=== PATIENT | male | born 2000 | race Caucasian/White ===

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

== ENCOUNTER 2018-01-18 09:02 | Emergency (ER) | payer MEDICAID, SELFPAY ==
[2018-01-18 09:04] VITALS: BP 133/56; PULSE 98; RESP 18; TEMP 36.3; O2SAT 95; BMI 34.8
[2018-01-18] MEDS: Ketorolac 30 MG/ML Syringe IV (09:32)
[2018-01-18] MEDS: 0.9% Normal Saline 1,000 ML 1000 ML IV ×2 (09:32)
[2018-01-18] MEDS: Ondansetron 4 MG/2 ML Vial IV (09:32)
--- NOTE | 2018-01-18 10:41 | ED.DCSUM_ITS ---
- ER Visit Summary Date of Service: 01/18/18 Chief Complaint: Vomiting and diarrhea History of Present Illness: The patient is a [address] pantoja. He reports he has vomiting and diarrhea that began today. He has vomited multiple times. No blood in his emesis. Multiple episodes of diarrhea. No blood in stools or black tarry stools. He reports that he has diffuse aching, cramping abdominal pain Zeta 10 at worst and currently. Is worsened by nothing. Is relieved by a hot shower. She does report he has had sick contacts. States he had a similar episode approximately 2 months ago. Physical Examination: Vitals: Stable. Afebrile. General: Well-nourished and well-developed. Head: Normocephalic atraumatic. Neck: Supple, no lymphadenopathy. No JVD. Nontender. Cardiovascular: Regular rate and rhythm. No murmurs. Respiratory: No respiratory distress. Clear to auscultation bilaterally. Abdominal: Soft, mild epigastric tenderness to palpation, nondistended, normal bowel sounds. No guarding, rebound, or peritoneal signs. Back: Nontender. Extremities: Nontender, no edema. Skin: Normal color, no rash. Neurologic: Alert and oriented ?3. Cranial nerves II through XII are intact. Normal strength and sensation. Psych: Normal affect. Emergency Department Course and Treatment: Patient had an IV placed. He is given 2 L normal saline, Zofran, and Toradol IV. He is resting comfortably. He said no vomiting or diarrhea while here Treatment Plan: Patient will be discharged with Zofran. Instructed to follow-up Dr. pantoja in 1-2 days if not improving. Return to the emergency department for any worsening symptoms. Disposition: To home in improved and stable condition. Impression: 1. Vomiting/diarrhea. This note was generated with [employer] dictation software. It may contain incorrect words, spelling, and punctuation that were not noted in review of the chart prior to signing ED Disposition - Plan for ED Patient: Disposition: Home or Assisted Living Chief Complaint: Nausea/Vomiting/Diarrhea Instructions: ED Vomiting Diarrhea Nonspecific Ad Prescriptions: Ondansetron [Zofran Odt] 4 mg PO Q8H PRN PRN #10 tablet PRN Reason: Nausea Referrals: Jase Pantoja MD [Primary Care Provider] - 1-2 Days if not improving
[2018-01-18 10:51] VITALS: PULSE 78; RESP 16; O2SAT 98
== END 2018-01-18 10:52 | disposition home or self-care (01) ==
PROVIDERS: Emergency Provider Emergency Medicine; Family Provider Pediatrics; PCP Pediatrics
DX: R11.2 Nausea with vomiting, unspecified (principal); R19.7 Diarrhea, unspecified; R10.9 Unspecified abdominal pain; J45.909 Unspecified asthma, uncomplicated
CPT/HCPCS: 96361; 96374; 96375; 99283; J7030; A4216; J2405

== ENCOUNTER 2018-01-18 14:11 | Emergency (ER) | payer MEDICAID, SELFPAY ==
[2018-01-18 09:04] VITALS: BMI 34.8
[2018-01-18 14:11] VITALS: BP 125/58; PULSE 98; RESP 18; TEMP 37; O2SAT 98; BMI 34.8
[2018-01-18] MEDS: 0.9% Normal Saline 1,000 ML 1000 ML IV (14:43)
[2018-01-18] MEDS: proMETHazine 25 MG/ML Syringe 6.25 MG IV (14:44)
--- NOTE | 2018-01-18 15:39 | ED.DCSUM_ITS ---
- ER Visit Summary Date of Service: 01/18/18 Chief Complaint: Vomiting and diarrhea History of Present Illness: The patient is a [address] pantoja. Patient reports he has vomiting and diarrhea that began 8 hours ago. States he is vomited multiple times. No blood in his emesis. Has had multiple episodes of diarrhea. Complains of aching, cramping diffuse abdominal pain is 10 at 10 worsening a 10 currently. Worse by nothing relieved by nothing. Patient was seen in the emergency department for this earlier and was given Zofran here. He reports that he got the prescription for Zofran filled and took this, but continued to vomit despite this. Physical Examination: Vitals: Stable. Afebrile. General: Well-nourished and well-developed. Head: Normocephalic atraumatic. Neck: Supple, no lymphadenopathy. No JVD. Nontender. Cardiovascular: Regular rate and rhythm. No murmurs. Respiratory: No respiratory distress. Clear to auscultation bilaterally. Abdominal: Soft, mild diffuse tenderness palpation, nondistended, normal bowel sounds. No guarding, rebound, or peritoneal signs. Back: Nontender. Extremities: Nontender, no edema. Skin: Normal color, no rash. Neurologic: Alert and oriented ?3. Cranial nerves II through XII are intact. Normal strength and sensation. Psych: Normal affect. Emergency Department Course and Treatment: Patient had an IV placed. He was given a liter normal saline. He is given Phenergan IV. He has had no vomiting or diarrhea while here. Treatment Plan: I had a prolonged discussion with the patient. I do not feel that blood work is indicated. He has been ill for 8 hours. He will be discharged with Phenergan suppositories to use in addition to Zofran ODT. Follow-up with Dr. pantoja in 1-2 days if not improving. Disposition: To home in improved and stable condition. Impression: 1. Vomiting/diarrhea. This note was generated with [employer] dictation software. It may contain incorrect words, spelling, and punctuation that were not noted in review of the chart prior to signing ED Disposition - Plan for ED Patient: Chief Complaint: Nausea/Vomiting/Diarrhea Instructions: ED Gastroenteritis Viral Prescriptions: proMETHazine suppository [Phenergan Suppository] 25 mg RECTAL Q6H PRN PRN #6 suppos. PRN Reason: Nausea Referrals: Jase Pantoja MD [Primary Care Provider] - 1-2 Days if not improving
[2018-01-18 15:48] VITALS: BP 127/64; PULSE 99; RESP 18; O2SAT 98
== END 2018-01-18 15:50 | disposition home or self-care (01) ==
PROVIDERS: Emergency Provider Emergency Medicine; Family Provider Pediatrics; PCP Pediatrics
DX: R11.2 Nausea with vomiting, unspecified (principal); R19.7 Diarrhea, unspecified; R10.84 Generalized abdominal pain; J45.909 Unspecified asthma, uncomplicated
CPT/HCPCS: 96361; 96374; 96375; 99283; J7030; A4216; J2405

== ENCOUNTER → 2018-07-02 15:59 | Outpatient (CLI) | payer MEDICAID, SELFPAY | PROVIDERS: Referring Provider Nurse Practitioner Women's Health; Visit Provider Nurse Practitioner Women's Health | DX: Z31.440 Encounter of male for testing for genetic disease carrier status for procreative management (principal) | CPT/HCPCS: 36415 ==

== ENCOUNTER → 2018-09-02 12:03 | Outpatient (CLI) | payer MEDICAID, SELFPAY ==
--- NOTE | 2018-09-02 12:12 | RAD_ITS ---
STUDY: X-RAY - LEFT KNEE REASON FOR EXAM: Male, 18 years old. Pain x3 years TECHNIQUE: 4 view(s) of the knee. COMPARISON: None. FINDINGS: Normal visualized distal femur. Normal visualized proximal tibia and fibula. Normal proximal tibiofibular articulation. Normal medial femorotibial compartment. Normal lateral femorotibial compartment. Normal patellofemoral articulation. The soft tissue structures are unremarkable. RAD/Knee 4 or More Views IMPRESSION: Normal x-ray examination of the knee. Electronically Signed: Moses Zimmerman MD at 12:56 EDT , Service support ,
--- NOTE | 2018-09-02 12:12 | RAD_ITS ---
STUDY: X-RAY - RIGHT KNEE REASON FOR EXAM: Male, 18 years old. Pain x3 years TECHNIQUE: 4 view(s) of the knee. COMPARISON: None. FINDINGS: Normal visualized distal femur. Normal visualized proximal tibia and fibula. Normal proximal tibiofibular articulation. Normal medial femorotibial compartment. Normal lateral femorotibial compartment. Normal patellofemoral articulation. The soft tissue structures are unremarkable. RAD/Knee 4 or More Views IMPRESSION: Normal x-ray examination of the knee. Electronically Signed: Moses Zimmerman MD at 12:56 EDT , Service support ,
[2018-09-02 14:09] LABS: Absolute Lymphocyte Count 1.94 X10^3/uL (0.83-4.51); Absolute Neutrophil Count 4.1 X10^3/uL (2.0-7.7); Basophil# 0.03 X10^3/uL; Basophil% 0.4 % (0-1); Eosinophil# 0.12 X10^3/uL; Eosinophils% 1.8 % (0-5); Hematocrit 44.2 % (40-54); Hemoglobin 15.1 g/dL (13.0-16.5); Lymphocyte # 1.94 X10^3/ul (4.0); Lymphocyte % 28.5 % (19-41); Mean Corp Hgb Conc 34.2 g/dL (32-36); Mean Corpuscular Hgb 28.3 pg (27.0-32.0); Mean Corpuscular Volume 82.8 fL (80-94); Mean Platelet Vol. 11.7 fl (6.2-12.0); Monocyte# 0.59 X10^3/uL; Monocyte% 8.7 % (0-10); NRBC Flagged by Analyzer 0 % (0-5); Neutrophil # 4.12 X10^3/uL (2.7-7.7); Neutrophil % 60.5 % (47-70); Platelet Count 251 K/mm3 (150-450); RBC Distribution Width CV 12.4 % (11.6-14.6); RBC Distribution Width SD 37.3 fl (35.1-43.9); Red Blood Count 5.34 M/mm3 (4.6-6.2); White Blood Count 6.8 K/mm3 (4.4-11.0)
[2018-09-02 14:22] LABS: Anion Gap 7 (5-15); BUN 13 mg/dL (7-18); BUN/Creat Ratio 13.3 RATIO (10-20); CRP < 2.90 mg/L (0.0-3.0); Calcium,Total 8.8 mg/dL (8.5-10.1); Chloride 107 mmol/L (98-107); Creatinine, Serum 0.98 mg/dL (0.70-1.30); EST Glomerular Filtration Rate 104 mL/min (>60); Est Glom Filt Rate - Afr Amer 125 mL/min (>60); Glucose 95 mg/dL (74-106); Potassium 3.8 mmol/L (3.5-5.1); Rheumatoid Factor < 10.0 IU/mL (<15); Sodium Level 142 mmol/L (136-145)
[2018-09-02 14:34] LABS: Erythrocyte Sedimentation Rate 3 mm/hr (0-15)
[2018-09-04 09:42] LABS: ANTINUCLEAR ANTIBODIES DIRECT Negative (Negative)
== END ==
PROVIDERS: Family Provider Family Medicine; PCP Family Medicine; Referring Provider Family Medicine; Visit Provider Family Medicine
DX: M25.561 Pain in right knee (principal); M25.562 Pain in left knee
CPT/HCPCS: 36415; 73564; 80048; 85025; 85652; 86038; 86140; 86431

== ENCOUNTER 2018-09-24 03:24 | Emergency (ER) | payer MEDICAID, SELFPAY ==
[2018-09-24 03:25] VITALS: BP 140/92; PULSE 81; RESP 16; TEMP 36.8; O2SAT 98; BMI 35.6
--- NOTE | 2018-09-24 03:30 | ED.VISSUMM ---
- ER Visit Summary Date of Service: 09/24/18 Chief Complaint: Bilateral ear pain, headache History of Present Illness: The patient is a 18 M who presents with the above symptoms. 3 days ago he was diagnosed with bilateral external otitis and has been doing antibiotic eardrops. He states his pain is getting worse. He has a headache tonight. He took Tylenol and naproxen without any relief. His temperature was 101 ?F yesterday. Physical Examination: Vital signs reviewed. HEENT exam reveals an atraumatic, normocephalic head. His pupils are equal. Bilateral ears reveals swelling of the external auditory canals. His TMs are clear. Heart is regular rate and rhythm. Lungs clear. Abdomen soft. Neurologic exam normal. Test Results: None performed Emergency Department Course and Treatment: Patient will be given a dose of Toradol intramuscularly for pain. I will add some oral antibiotics to see if this will help with his symptoms. He will follow-up with his PCP. Continue NSAIDs at home for pain Treatment Plan: [] Disposition: Discharge Impression: Bilateral external otitis, headache This note was generated with [employer] dictation software. It may contain incorrect words, spelling, and punctuation that were not noted in review of the chart prior to signing ED Disposition - Plan for ED Patient: Referrals: Domo Cheng MD [Primary Care Provider] -
--- NOTE | 2018-09-24 03:31 | ED.DEP ---
ED Disposition - Plan for ED Patient: Disposition: Home or Assisted Living Instructions: EXTERNAL EAR INFECTION (Adult) Prescriptions: Amoxicillin 500 mg PO TID #20 tab Prescription Printed Referrals: Domo Cheng MD [Primary Care Provider] -
[2018-09-24] MEDS: AMOXICILLIN 500 MG CAPSULE PO (03:39)
[2018-09-24] MEDS: Naproxen 500 MG Tablet PO (03:43)
[2018-09-24 03:44] VITALS: RESP 16
== END 2018-09-24 03:45 | disposition home or self-care (01) ==
LOC: ED 03:43
PROVIDERS: Emergency Provider Emergency Medicine; Family Provider Family Medicine; PCP Family Medicine
DX: H60.93 Unspecified otitis externa, bilateral (principal); R51 Headache; J45.909 Unspecified asthma, uncomplicated; Z72.0 Tobacco use
CPT/HCPCS: 99283

== ENCOUNTER 2018-10-16 16:00 | Outpatient (RCR) | payer MEDICAID, SELFPAY ==
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
--- NOTE | 2018-11-21 09:51 | HP.PT.NRP ---
HP - Discharge Summary (1) - Patient Information MOIRA HUMMEL was seen in my office for initial evaluation on 09/22/18. The following Plan of Care was established for this patient: Initial Frequency: 2x /Week Initial Duration: 4 Weeks - Anticipated Interventions Patient/Client Instruction: Educate patient on: Benefits of Fitness Program Therapeutic Exercise to Include: Strength training, Power training, Balance training, Agility training, Body mechanics, Postural training, Flexibilty training, Gait and locomotor training, Dynamic Lumbar Stabilization For the Purpose of:: To improve muscle performance and motor function Functional Training to Include: Gait training TENS: Yes Cryotherapy (ice pack, ice massage): Yes Thermo therapy (hot pack): Yes Ultrasound (thermal/non thermal): Yes For the Purpose of:: To decrease pain This patient was last seen in our office . Pertinent comments regarding their Physical therapy will appear below: Patient has not attended PT in 4 weeks and is appropriate for d/c- return to MD for further evaluation as needed. At this point I will be discontinuing this patient from physical therapy. I would be happy to see this patient again in the future if found appropriate by the physician. Thank you! JUVENAL AbbottT
== END 2018-10-16 19:00 | disposition home or self-care (01) ==
LOC: PT 16:00
PROVIDERS: Family Provider Family Medicine; PCP Family Medicine; Referring Provider Family Medicine; Visit Provider Family Medicine
DX: M25.561 Pain in right knee (principal); M25.562 Pain in left knee
CPT/HCPCS: 97110; 97161

== ENCOUNTER 2019-07-13 23:45 | Emergency (ER) | payer OTHER, MEDICAID, SELFPAY ==
[2019-07-13 23:46] VITALS: BP 142/81; PULSE 89; RESP 16; TEMP 37.2; O2SAT 97; BMI 36.6
--- NOTE | 2019-07-14 00:14 | ED.DCSUM_ITS ---
History of Present Illness Chief Complaint: Back Informant: Patient Onset: Days Timing: Intermittent Current Severity: Moderate Maximum Severity: Severe Narrative: Patient presents secondary to back pain. He states a few days ago he was leaning over putting his daughter into her car seat when he felt something pop in his lower back. Was slightly sore but seem to be okay. He then reached for something at lunch and felt another pop. He now has pain radiating down his right leg. He denies any fall or direct trauma. He does not have paresthesias. He had no problems with bowel or bladder control. - Past Medical History (1) Asthma Status: Chronic Past Medical History - Allergies and Home Meds Allergies/Adverse Reactions: Allergies No Known Allergies Allergy (Verified 07/13/19 23:48) Primary Care Physician: Domo Cheng MD [Primary Care Provider] - 1 Week if not improving Prior records reviewed: Yes Lives: With Family Smoking Status: Current every day smoker Review of Systems General: Denies: Chills, Fever Eyes: Denies: Visual changes - bilaterally ENT: Denies: Bilateral ear pain Cardiovascular: Denies: Chest pain Respiratory: Denies: Dyspnea, Cough Gastrointestinal: Denies: Abdominal pain, Nausea, Vomiting, Diarrhea Musculoskeletal: Reports: Back pain, Extremity Pain Skin: Denies: Rash Neurological: Denies: Parasthesia Hematologic: Denies: Easy bruising, Easy bleeding Allergy: Denies: Uticaria Physical Exam Vital Signs/Narrative: Vital Signs Temp Pulse Resp BP Pulse Ox 07/13/19 23:46 99 F 89 16 142/81 H 97 Inital Vital Signs reviewed: Yes General: Well nourished, Well developed Head: Normocephalic ENT: Moist mucous membranes Neck: Supple Cardiovascular: Regular rate, Regular rhythm Respiratory: No distress, CTA bilaterally Abdomen: Soft, Nontender Back: - - Tenderness in the low lumbar midline and right lumbar paraspinals. He does have tenderness of the right sciatic notch. No skin changes noted. Extremities: Nontender Skin: Normal color, No rash Neurological: Alert, Oriented x3, - - No focal deficits noted on testing. Strong distal pulses with normal sensation. Psychological: Normal affect Diagnostic/Tx/Re-eval - Medical Decision Making Patient had no direct trauma or fall-I do not feel that imaging is going to be beneficial. He is treated with Independence, Naprosyn, Flexeril, and prednisone. He was advised to follow with his primary care physician if not improving within the next 5 to 7 days. He was advised he may require physical therapy or MRI for further evaluation if not improved. ED Disposition - Plan for ED Patient: Disposition: Home or Assisted Living Diagnosis: Sciatica of right side Instructions: Understanding Sciatica, ED LUMBAR SPRAIN/STRAIN Prescriptions: Prednisone [Deltasone] 40 mg PO DAILY #10 tab Prescription Printed cycloBENZAPRine HCl [Flexeril] 10 mg PO TID PRN #20 tab PRN Reason: Muscle Spasm Prescription Printed Naproxen [Naprosyn] 500 mg PO BID PRN PRN #20 tab PRN Reason: Pain Score 4-10/10 Prescription Printed Hydrocodone Bitart/Apap 5-325 [Independence 5MG-325MG] 1 tab PO Q6H PRN PRN 3 Days #10 tab PRN Reason: Pain Prescription Printed Referrals: Domo Cheng MD [Primary Care Provider] - 1 Week if not improving
[2019-07-14] MEDS: predniSONE 20 MG Tablet 40 MG PO (00:21)
[2019-07-14] MEDS: HYDROcodone Bitartrate/Apap 5/325 Tablet PO (00:21)
[2019-07-14] MEDS: cycloBENZAPRine HCl 10 MG Tablet PO (00:21)
[2019-07-14] MEDS: Naproxen 500 MG Tablet PO (00:21)
[2019-07-14 00:43] VITALS: PULSE 88; RESP 16; O2SAT 98
== END 2019-07-14 01:00 | disposition home or self-care (01) ==
LOC: ED 07-14 00:36
PROVIDERS: Emergency Provider Emergency Medicine; PCP Family Medicine
DX: M54.31 Sciatica, right side (principal); J45.909 Unspecified asthma, uncomplicated; F17.200 Nicotine dependence, unspecified, uncomplicated; Z79.899 Other long term (current) drug therapy
CPT/HCPCS: 99283

== ENCOUNTER 2020-10-30 21:04 | Emergency (ER) | payer OTHER, MEDICAID, SELFPAY ==
[2020-10-30 21:04] VITALS: BP 107/64; PULSE 115; RESP 18; TEMP 38.8; O2SAT 96; BMI 38.0
--- NOTE | 2020-10-30 22:31 | EX.ED.DYSGE1 ---
HPI History of Present Illness Chief Complaint: Fever Narrative Narrative: 20-year-old male with history of asthma presenting with fever, chills, nausea. He states he is not having significant shortness of breath and he does not feel he is wheezing even though he has a history of asthma. Patient does not have a cough. Patient does have a fever on arrival. Patient states his symptoms started today. He has no known exposure to COVID-19. He took 1 g of Tylenol prior to arrival and states that is starting to feel better. He states he did come by EMS and was given breathing treatments although he did not feel he was wheezing. His biggest complaint is of headache and nausea. Patient has not been vaccinated for COVID-19. He has no known exposures. [facility] Medical History Asthma Opiate addiction Home Medications albuterol sulfate 3 puff IN Q6H PRN PRN 07/14/19 [History Last Taken Unknown] acetaminophen [Tylenol 8 Hour] 650 mg PO Q8H PRN #20 tab 10/30/20 [Rx Last Taken Unknown] albuterol sulfate 1 inh INHALATION Q6H PRN #8.5 g 10/30/20 [Rx Last Taken Unknown] ibuprofen 600 mg PO Q8H PRN PRN #20 tablet 10/30/20 [Rx Last Taken Unknown] ondansetron 4 mg PO Q8H PRN PRN #20 tab 10/30/20 [Rx Last Taken Unknown] prednisone 50 mg PO DAILY #5 tab 10/30/20 [Rx Last Taken Unknown] Allergy/AdvReac Type Severity Reaction Status Date / Time No Known Allergies Allergy Verified 10/30/20 21:07 Social History Smoking Status: Current every day smoker tobacco type: cigarettes ROS ROS ED Constitutional Constitutional ED: Reports chills and fever(s) Eyes Eyes: Denies blurry vision or change in vision ENT ENT ED: Denies rhinorrhea or sore throat Cardiovascular Cardiovascular: Denies chest pain or palpitations Respiratory/Chest Respiratory/Chest: Denies cough or dyspnea Gastrointestinal Gastrointestinal: Reports nausea; Denies abdominal pain, diarrhea or vomiting Genitourinary Genitourinary ED: Denies dysuria or hematuria Musculoskeletal Musculoskeletal: Reports myalgias; Denies arthralgias, back pain or neck pain Integumentary Denies Abrasions or rash Neurologic Neurologic: Reports headache(s); Denies paresthesias or weakness EXAM Physical Exam Const Vital Signs: 10/30/20 21:04 10/30/20 21:38 Temperature 102 F H Temperature Source Temporal Pulse Rate 115 H Respiratory Rate 18 Respiratory Effort Short of Breath Respiratory Pattern Normal Blood Pressure 107/64 Blood Pressure Mean 78 Pulse Ox 96 Oxygen Delivery Method Room Air Positive well nourished General Appearance ED: NAD; Negative for pallor HEENT Reports moist mucous membranes Negative for trauma Eyes PERRL and EOMs intact bilaterally Chest Wall inspection of chest normal and palpation of chest normal Resp normal respiratory effort and clear to auscultation bilaterally Cardio regular rhythm Rate: tachycardic Neuro oriented x3 and CN's II-XII intact bilaterally Sensorium / Orientation: alert Skin no rashes or lesions noted General Skin Exam: Negative for jaundice or pallor MDM MDM MDM Narrative Medical decision making narrative: Patient presenting with fever and chills. Patient is complaining of nausea and a headache. He does not have any respiratory complaints. He was given breathing treatments prior to arrival by EMS but states he did not feel like he was wheezing even then. Patient had already taken Tylenol before arrival. He requested Zofran for nausea. He tested positive for COVID-19. He request prescription for ibuprofen and Tylenol for home. I did also refill his albuterol inhaler just in case he needs this. He was given a prescription for Zofran and instructed to hydrate as much as possible. Patient is not wheezing on my examination but states he has a history of asthma. I will give him impression for [id number] prednisone in case he starts wheezing. He is given return precautions. He is stable for discharge at this time. Impression: #1 COVID-19 #2 nausea Discharge Plan Triage Chief Complaint: Fever ED Provider: Chris Reyes Dx/Rx/DC Orders Instructions: Coronavirus Disease 2019 (COVID-19): Caring for Yourself or Others Prescriptions: New ondansetron 4 mg tablet,disintegrating 4 mg PO Q8H PRN PRN (Reason: Nausea) Qty: 20 RF: 0 ibuprofen 600 mg tablet 600 mg PO Q8H PRN PRN (Reason: fever) Qty: 20 RF: 0 acetaminophen [Tylenol 8 Hour] 650 mg tablet extended release 650 mg PO Q8H PRN (Reason: fever) Qty: 20 RF: 0 prednisone 50 mg tablet 50 mg PO DAILY Qty: 5 RF: 0 albuterol sulfate 90 mcg/actuation HFA aerosol inhaler 1 inh inhalation Q6H PRN (Reason: shortness of breath or wheezing) Qty: 8.5 RF: 0 No Action albuterol sulfate 90 mcg/actuation HFA aerosol inhaler 3 puff IN Q6H PRN PRN (Reason: Sob &/Or Wheezing) RF: 0 Primary Care Provider: Domo Cheng Referrals: Domo Cheng MD [Primary Care Provider] - Disposition Disposition: Home, Self Care
[2020-10-30] MEDS: Ondansetron ODT 4 MG Tablet PO (22:50)
[2020-10-30 22:51] VITALS: BP 134/77; PULSE 89; RESP 16; TEMP 36.8; O2SAT 98
== END 2020-10-30 22:56 | disposition home or self-care (01) ==
PROVIDERS: Emergency Provider Student in an Organized Health Care Education/Training Program; PCP Family Medicine
DX: U07.1 COVID-19 (principal); R11.0 Nausea; J45.909 Unspecified asthma, uncomplicated; F11.20 Opioid dependence, uncomplicated; F17.210 Nicotine dependence, cigarettes, uncomplicated; Z79.899 Other long term (current) drug therapy
CPT/HCPCS: 87426; 99284; J7030

== ENCOUNTER 2020-11-05 11:06 | Emergency (ER) | payer OTHER, MEDICAID, SELFPAY ==
[2020-11-05] VITALS (8 sets, daily range): BP systolic 108–128; BP diastolic 56–76; PULSE 74–89; RESP 16–24; TEMP 36.3–37.1; O2SAT 92–95; BMI 37.0
--- NOTE | 2020-11-05 12:09 | RAD_ITS ---
STUDY: X-RAY CHEST REASON FOR EXAM: Male, 20 years old. Cough. TECHNIQUE: Single frontal view of the chest. COMPARISON: None. FINDINGS: Low volume inspiration. There is no demonstrated pleural abnormality. Normal size heart. Normal mediastinum and jignesh. Normal visualized pulmonary arteries. Normal visualized aortic arch and descending thoracic aorta. Normal visualized thoracic spine. Normal visualized ribs, clavicles, and shoulders. There is no demonstrated abnormality of the visualized soft tissue structures of the upper abdomen. RAD/Chest 1 View (Portable) IMPRESSION: Low volume inspiration with no acute finding. Electronically Signed: Brian David MD at 14:18 EDT , Service support ,
--- NOTE | 2020-11-05 12:10 | EKG12_ITS ---
Test Reason : SOB Blood Pressure : / mmHG Vent. Rate : 088 BPM Atrial Rate : 088 BPM P-R Int : 134 ms QRS Dur : 088 ms QT Int : 346 ms P-R-T Axes : 048 002 035 degrees QTc Int : 418 ms Normal sinus rhythm Poor R wave progression Confirmed by THEO TERAN, NATANAEL ([id number]), editor managing newspaper SYLWIA JUAREZ ([id number]) on 11/07/2020 1:29:46 PM Referred By: MORIS Confirmed By:NATANAEL VENEGAS MD
--- NOTE | 2020-11-05 12:10 | CT_ITS ---
We are attempting to reach an attending provider to discuss findings. An addendum with communication details will be sent when the communication is complete. EXAM: CT ANGIOGRAPHY CHEST WITHOUT AND WITH INTRAVENOUS CONTRAST CLINICAL INDICATION: Chest pain. TECHNIQUE: Helically acquired angiography images were obtained of the chest without and with intravenous contrast. This CT exam was performed using one or more of the following dose reduction techniques: automated exposure control, adjustment of the mA and/or kV according to patient size, and/or use of iterative reconstruction technique. This report was created using [employer] report generation technology. MIP reconstructed images were created and reviewed. CONTRAST: IV 100mL [id number] COMPARISON: None. FINDINGS: PULMONARY ARTERIES: Less than optimal contrast enhancement of the peripheral pulmonary arteries but no suspicious pulmonary emboli. Normal in caliber. AORTA: Unremarkable. Normal in caliber. No evidence of dissection. GREAT VESSELS OF AORTIC ARCH: Unremarkable. Normal in caliber. No evidence of dissection. LUNGS AND PLEURAL SPACES: Multiple subcentimeter pulmonary nodules in both lungs worrisome for pulmonary metastatic disease. They are somewhat limited by breathing motion artifacts. No pleural effusion or thickening. No pneumothorax. HEART: Unremarkable. Heart size is normal. No pericardial effusion. No signs of right heart strain, ratio of right ventricle to left ventricle measures less than 1. MEDIASTINUM: Unremarkable. No mediastinal or hilar adenopathy. Esophagus is unremarkable. No hiatal hernia. THYROID: Unremarkable. No thyroid lesions. BONES/JOINTS: Unremarkable. No suspicious lytic or blastic abnormality. CT/CTA Chest W/WO Contrast IMPRESSION: 1. No CTA evidence of pulmonary thromboemboli, thoracic aortic aneurysm or dissection 2. Multiple subcentimeter pulmonary nodules in both lungs limited by breathing motion artifacts. They are worrisome for pulmonary metastatic disease. Electronically Signed: Gunnar Betancourt MD at 13:36 EDT , Service support ,
[2020-11-05 12:35] LABS: Absolute Lymphocyte Count 0.42 X10^3/uL (0.83-4.51); Absolute Neutrophil Count 3.6 X10^3/uL (2.0-7.7); Hematocrit 45.3 % (40-54); Lymphocyte # 0.42 X10^3/ul (0.83-4.51); Lymphocyte % 9.7 % (19-41); Mean Corp Hgb Conc 33.1 g/dL (32-36); Mean Corpuscular Hgb 27.6 pg (27.0-32.0); Mean Corpuscular Volume 83.4 fL (80-94); Mean Platelet Vol. 10.7 fl (6.2-12.0); Monocyte# 0.26 X10^3/uL; NRBC Flagged by Analyzer 0 % (0-5); Neutrophil # 3.64 X10^3/uL (2.7-7.7); Neutrophil % 84.1 % (47-70); POSITIVE DIFFERENTIAL YES; Platelet Count 206 K/mm3 (150-450); RBC Distribution Width CV 13.2 % (11.6-14.6); RBC Distribution Width SD 39.8 fl (35.1-43.9); Red Blood Count 5.43 M/mm3 (4.6-6.2); White Blood Count 4.3 K/mm3 (4.4-11.0)
[2020-11-05 12:37] LABS: Differential Indicated SCAN CRITERIA MET
--- NOTE | 2020-11-05 12:37 | ED.VIS.DYS ---
HPI History of Present Illness Chief Complaint: Shortness of Breath Narrative Narrative: 20-year-old male on day 7 of COVID-19 pneumonitis presenting with. Low pulse ox at home. He states that he was 88 on room air. Patient states his oxygen came up pretty fast when EMS was called. He states he does not feel significantly short of breath but he has pain with deep inspiration retrosternally. He states he thought this was due to his costochondritis. He has a cough. He states his fevers have been between 101 and 102 Fahrenheit. He is to respond to antipyretics. Patient previously seen at [facility] and diagnosed with Covid. At that time he did not require oxygen. He has a history of asthma and was provided an albuterol inhaler. He is also provided with prednisone if he should start wheezing. He states he has been taking the steroids and using his albuterol inhaler. Patient also experienced nausea previously and was given a prescription for Zofran which she has also used. He states he has been able to get down fluids in small amounts. Patient has no cardiac history. He has no history of DVT/PE. [facility] Medical History Asthma Opiate addiction Home Medications albuterol sulfate 3 puff IN Q6H PRN PRN 07/14/19 [History Last Taken Unknown] acetaminophen [Tylenol 8 Hour] 650 mg PO Q8H PRN #20 tab 10/30/20 [Rx Last Taken Unknown] ondansetron 4 mg PO Q8H PRN PRN #20 tab 10/30/20 [Rx Last Taken Unknown] prednisone 50 mg PO DAILY #5 tab 10/30/20 [Rx Last Taken Unknown] Allergy/AdvReac Type Severity Reaction Status Date / Time No Known Allergies Allergy Verified 10/30/20 21:07 Social History Smoking Status: Former smoker ROS ROS ED Constitutional Constitutional ED: Reports chills and fever(s) Eyes Eyes: Denies blurry vision or diplopia ENT ENT ED: Denies rhinorrhea or sore throat Cardiovascular Cardiovascular: Reports chest pain; Denies palpitations Respiratory/Chest Respiratory/Chest: Reports cough and dyspnea; Denies sputum Gastrointestinal Gastrointestinal: Reports nausea; Denies abdominal pain or vomiting Genitourinary Genitourinary ED: Denies dysuria or hematuria Musculoskeletal Musculoskeletal: Reports myalgias; Denies arthralgias, back pain or neck pain Integumentary Denies Abrasions or rash Neurologic Neurologic: Reports headache(s); Denies paresthesias EXAM Physical Exam Const Vital Signs: 11/05/20 11:07 11/05/20 11:12 11/05/20 11:15 Temperature 98.8 F 98.8 F Temperature Source Oral Oral Pulse Rate 89 89 Respiratory Rate 20 H 20 H Respiratory Effort Normal Non-Labored Short of Breath Respiratory Depth Normal Deep Respiratory Pattern Normal Tachypnea Blood Pressure 108/73 108/73 Blood Pressure Mean 84 84 Pulse Ox 93 93 Oxygen Delivery Method Room Air Room Air Nasal Cannula Oxygen Flow Rate (L/min) 2 11/05/20 11:18 11/05/20 13:12 11/05/20 15:19 Temperature 97.4 F L Temperature Source Temporal Pulse Rate 74 88 Respiratory Rate 22 H 16 Respiratory Effort Respiratory Depth Respiratory Pattern Blood Pressure 108/56 L 122/74 H Blood Pressure Mean 73 90 Pulse Ox 95 92 94 Oxygen Delivery Method Room Air Room Air Room Air Oxygen Flow Rate (L/min) Positive well nourished General Appearance ED: NAD; Negative for pallor HEENT Reports moist mucous membranes atraumatic Eyes PERRL and EOMs intact bilaterally Neck no lymphadenopathy and supple Resp Auscultation: diminished lung sounds right and left Cardio regular rate and regular rhythm GI Palpation: soft Narrative: Testicles nontender, no masses, no discoloration or cellulitic change. Penis circumcised without any abnormality. No urethral discharge. Extremity normal to inspection General Extremety ED: Yes tenderness Neuro oriented x3 and CN's II-XII intact bilaterally Sensorium / Orientation: alert Psych mental status grossly normal Thought Process: normal thought process Skin General Skin Exam: Negative for jaundice or pallor MDM MDM MDM Narrative Medical decision making narrative: Patient presenting for the second time for Covid symptoms. He states his pulse ox was 88 at home. Here today and has not been below 92. He was able to ambulate maintain a pulse ox of 92. I did repeat his lab work and his CBC and BMP are unremarkable. LFTs show a slight elevation in the AST at 73 and ALT at 143. Lactic acid is 0.7. Procalcitonin is negative. EKG on my interpretation shows a normal sinus rhythm with ventricular rate of 88 bpm without sign of ischemic change. Chest x-ray my interpretation shows no acute cardiopulmonary process and the radiologist does agree. The radiologist did contact me regarding the patient's CTA which does not show pulmonary emboli or dissection but does show multiple pulmonary nodules concerning for metastatic disease. He also did specifically was concerned for testicular abnormalities. After reevaluation the patient other than nausea he has no abdominal pain. He does not have any testicular pain. I examined his testicles and there are no masses or abnormalities. He also did a self-exam and notes that there is no changes. When asked about his family history he states he is adopted and he does not know his family history. I did attempt to call the on-call oncologist to see if there was anything else that would be needed to be done before he leaves the ER as he is maintaining normal O2 saturations and otherwise his lab work is normal. Patient can be discharged home from the standpoint of Covid. I was unable to contact the oncologist. I did give him a referral through the [employer] system. I did call in and order the consult in the computer system. Patient was given follow-up instructions for oncology. He is also given return precautions if he has any new or worsening symptoms. Impression: 1. COVID-19 pneumonitis 2. Multiple pulmonary nodules Lab Data Attestation: I reviewed the patient's lab results. Labs: Laboratory Results - last 24 hr 11/05/20 11/05/20 11/05/20 12:25 12:25 12:25 WBC 4.3 L RBC 5.43 Hgb 15.0 Hct 45.3 MCV 83.4 MCH 27.6 MCHC 33.1 RDW Std Deviation 39.8 RDW Coeff of Brittny 13.2 Plt Count 206 MPV 10.7 Immature Gran % (Auto) 0.200 Neut % (Auto) 84.1 H Lymph % (Auto) 9.7 L [place] % (Auto) 6.0 Eos % (Auto) 0.0 Baso % (Auto) 0.0 Absolute Neuts (auto) 3.6 Absolute Lymphs (auto) 0.42 L Nucleated RBC % 0 Sodium 138 Potassium 3.8 Chloride 107 Carbon Dioxide 28.0 Anion Gap 3 L BUN 15 Creatinine 0.95 Estim Creat Clear Calc 133.87 Est GFR (MDRD) Af Amer 127 Est GFR (MDRD) Non-Af 105 BUN/Creatinine Ratio 15.8 Glucose 111 H Lactic Acid 0.7 Calcium 8.7 Total Bilirubin 0.50 AST 73 H ALT 143 H Alkaline Phosphatase 59 Troponin I High Sens 8 Total Protein 7.5 Albumin 3.8 Globulin 3.7 Albumin/Globulin Ratio 1.0 Procalcitonin 11/05/20 12:25 WBC RBC Hgb Hct MCV MCH MCHC RDW Std Deviation RDW Coeff of Brittny Plt Count MPV Immature Gran % (Auto) Neut % (Auto) Lymph % (Auto) [place] % (Auto) Eos % (Auto) Baso % (Auto) Absolute Neuts (auto) Absolute Lymphs (auto) Nucleated RBC % Sodium Potassium Chloride Carbon Dioxide Anion Gap BUN Creatinine Estim Creat Clear Calc Est GFR (MDRD) Af Amer Est GFR (MDRD) Non-Af BUN/Creatinine Ratio Glucose Lactic Acid Calcium Total Bilirubin AST ALT Alkaline Phosphatase Troponin I High Sens Total Protein Albumin Globulin Albumin/Globulin Ratio Procalcitonin 0.20 H Radiography Diagnostic Testing: Radiology Impression Chest X-Ray 11/05/20 12:09 IMPRESSION: Low volume inspiration with no acute finding. Electronically Signed: Brian David MD at 14:18 EDT , Service support , Chest CTA 11/05/20 12:10 IMPRESSION: 1. No CTA evidence of pulmonary thromboemboli, thoracic aortic aneurysm or dissection 2. Multiple subcentimeter pulmonary nodules in both lungs limited by breathing motion artifacts. They are worrisome for pulmonary metastatic disease. Electronically Signed: Gunnar Betancourt MD at 13:36 EDT , Service support , ADDENDUM: 11/05/20 1433 IMPRESSION: 1. No CTA evidence of pulmonary thromboemboli, thoracic aortic aneurysm or dissection 2. Multiple subcentimeter pulmonary nodules in both lungs limited by breathing motion artifacts. They are worrisome for pulmonary metastatic disease. N.B. : The above Results were Read Back by Gunnar Betancourt MD to Dr. Nadia MD, and understanding confirmed on 11/05/2020 14:26:50 (ET). Electronically Signed: Gunnar Betancourt MD at 13:36 EDT , Service support , Discharge Plan Triage Chief Complaint: Shortness of Breath ED Provider: Chris Reyes Dx/Rx/DC Orders Instructions: Coronavirus Disease 2019 (COVID-19): Caring for Yourself or Others Prescriptions: No Action albuterol sulfate 90 mcg/actuation HFA aerosol inhaler 3 puff IN Q6H PRN PRN (Reason: Sob &/Or Wheezing) RF: 0 ondansetron 4 mg tablet,disintegrating 4 mg PO Q8H PRN PRN (Reason: Nausea) Qty: 20 RF: 0 acetaminophen [Tylenol 8 Hour] 650 mg tablet extended release 650 mg PO Q8H PRN (Reason: fever) Qty: 20 RF: 0 prednisone 50 mg tablet 50 mg PO DAILY Qty: 5 RF: 0 Other Ambulatory Orders: Fast Pass: Oncology Referral [facility] (Routine) Facility: [facility] - Location: [facility] Ordered By: Dr. Chris Reyes Primary Care Provider: Domo Cheng Referrals: Domo Cheng MD [Primary Care Provider] - Activity Restrictions/Additional Instructions: Your CTA today showed multiple pulmonary nodules concerning for possible metastatic disease. I did put in a referral to oncology through [facility]. They will reach out to you. As far as your Covid we found her pulse ox to stay in the 90s today. Even ambulating you at 92%. If this does go below 90 or you are more symptomatic or too weak to care for yourself please return to the ER. Disposition Disposition: Home, Self Care
[2020-11-05 12:53] LABS: AST(SGOT) 73 U/L (15-37); Alanine Aminotransfer ALT/SGPT 143 U/L (16-61); Albumin, Serum 3.8 g/dL (3.2-5.0); Alkaline Phosphatase 59 U/L (45-117); Anion Gap 3 (5-15); BUN 15 mg/dL (7-18); BUN/Creat Ratio 15.8 RATIO (10-20); Calcium,Total 8.7 mg/dL (8.5-10.1); Chloride 107 mmol/L (98-107); Creatinine, Serum 0.95 mg/dL (0.70-1.30); EST Glomerular Filtration Rate 105 mL/min (>60); Est Glom Filt Rate - Afr Amer 127 mL/min (>60); Estimated Creatinine Clearance 133.87 ml/min; Globulin 3.7 g/dL (2.2-4.2); Glucose 111 mg/dL (74-106); Potassium 3.8 mmol/L (3.5-5.1); Protein, Total 7.5 g/dL (6.4-8.2); Sodium Level 138 mmol/L (136-145); Troponin-I HS 8 pg/mL (3.0-78.0)
[2020-11-05 13:00] LABS: Lactic Acid 0.7 mmol/L (0.4-1.9)
[2020-11-05] MEDS: Ondansetron 4 MG/2 ML Vial IV (17:19)
[2020-11-07 14:23] LABS: Pathologist Review Reviewed
== END 2020-11-05 17:20 | disposition home or self-care (01) ==
PROVIDERS: Emergency Provider Student in an Organized Health Care Education/Training Program; PCP Family Medicine
DX: U07.1 COVID-19 (principal); J12.82 Pneumonia due to coronavirus disease 2019; R91.8 Other nonspecific abnormal finding of lung field; J45.909 Unspecified asthma, uncomplicated; Z79.52 Long term (current) use of systemic steroids; Z79.899 Other long term (current) drug therapy; Z87.891 Personal history of nicotine dependence
CPT/HCPCS: 71045; 71275; 80053; 83605; 84145; 84484; 85025; 93005; 96374; 99285; Q9967; A4216; J2405

== ENCOUNTER 2020-11-08 02:56 | Emergency (ER) | payer OTHER, MEDICAID, SELFPAY ==
[2020-11-08 02:56] VITALS: BP 124/73; PULSE 87; RESP 18; TEMP 37.8; O2SAT 97; BMI 36.4
--- NOTE | 2020-11-08 03:20 | RAD_ITS ---
STUDY: X-RAY CHEST REASON FOR EXAM: Male, 20 years old. SOB -- + COVID TECHNIQUE: Single AP portable view of the chest. COMPARISON: November 05, 2020 chest x-ray FINDINGS: There are multifocal patchy opacities throughout the lungs. There is no demonstrated pleural abnormality. Normal size heart. Normal mediastinum and jignesh. Normal visualized pulmonary arteries. Normal visualized aortic arch and descending thoracic aorta. Normal visualized thoracic spine. Normal visualized ribs, clavicles, and shoulders. There is no demonstrated abnormality of the visualized soft tissue structures of the upper abdomen. RAD/Chest 1 View (Portable) IMPRESSION: Multifocal pneumonia. A pattern consistent with Covid pneumonia. Electronically Signed: Lisa Alvarado MD at 3:52 EDT Tel , Service support ,
--- NOTE | 2020-11-08 05:16 | EDS_ITS ---
HPI History of Present Illness Chief Complaint: Shortness of Breath Informant: patient Onset/Context/Timing Onset: Days Context: Gradual Onset Current Severity: Mild Maximum Severity: Moderate Narrative Narrative: Patient present secondary to shortness of breath. He tested positive for Covid and developed symptoms on October 30. Patient states has been having trouble with nausea and vomiting but today was more short of breath. He does report a temperature up to 100.1. He took Tylenol just prior to arrival. Patient does report coughing up yellow-colored sputum. He has mild chest pain along with nausea, vomiting, and diarrhea. Patient has been taking prednisone and also does have Reglan and Zofran at home to help with nausea. [facility] Medical History Asthma Costochondritis Opiate addiction Home Medications albuterol sulfate 3 puff IN Q6H PRN PRN 07/14/19 [History Last Taken Unknown] acetaminophen [Tylenol 8 Hour] 650 mg PO Q8H PRN #20 tab 10/30/20 [Rx Last Taken Unknown] ondansetron 4 mg PO Q8H PRN PRN #20 tab 10/30/20 [Rx Last Taken Unknown] prednisone 50 mg PO DAILY #5 tab 10/30/20 [Rx Last Taken Unknown] ondansetron HCl [Zofran] 4 mg PO Q8H #20 tab 11/05/20 [Rx Last Taken Unknown] dexamethasone [Decadron] 6 mg PO DAILY #9 tab 11/08/20 [Rx Last Taken Unknown] Allergy/AdvReac Type Severity Reaction Status Date / Time No Known Allergies Allergy Verified 10/30/20 21:07 Social History Smoking Status: Former smoker ROS ROS ED Constitutional Constitutional ED: Reports fever(s) Eyes Eyes: Denies blurry vision or change in vision ENT ENT ED: Denies ear pain or rhinorrhea Cardiovascular Cardiovascular: Reports chest pain Respiratory/Chest Respiratory/Chest: Reports cough, dyspnea and sputum Gastrointestinal Gastrointestinal: Reports diarrhea, nausea and vomiting Musculoskeletal Musculoskeletal: Reports myalgias Integumentary Denies rash Neurologic Neurologic: Reports weakness; Denies headache(s) Endocrine Endocrinology: Denies polydipsia or polyuria Allergic/Immunologic Allergic/Immunologic ED: Denies urticaria EXAM Physical Exam Const Positive well nourished and well developed General Appearance ED: well developed HEENT Reports moist mucous membranes Eyes PERRL and EOMs intact bilaterally Neck supple Resp normal respiratory effort and clear to auscultation bilaterally Cardio regular rate and regular rhythm GI normal to inspection, nondistended, normoactive bowel sounds and non-tender Palpation: soft Extremity normal to inspection Neuro oriented x3 Sensorium / Orientation: alert Skin no rashes or lesions noted MDM MDM MDM Narrative Medical decision making narrative: Chest x-ray, lab work obtained. Lab Data Attestation: I reviewed the patient's lab results. Labs: CBC reveals normal white count at 4.54. Hemoglobin 14.4. D-dimer 0.55. Chemistry studies unremarkable. Lactic acid 1.5. Radiography Chest X-Ray - ED: 1 View, Read by ED Physician, Right Infiltrate and Left Infiltrate Diagnostic Testing: Radiology Impression Chest X-Ray 11/08/20 03:20 IMPRESSION: Multifocal pneumonia. A pattern consistent with Covid pneumonia. Electronically Signed: Lisa Alvarado MD at 3:52 EDT Tel , Service support , Chest CTA 11/08/20 05:21 IMPRESSION: Worsening multifocal pneumonia. No visualized pulmonary embolism. Electronically Signed: Lisa Alvarado MD at 5:54 EDT Tel , Service support , Treatment and Re-Evaluation Comments:: Portable chest x-ray per my interpretation reveals patchy bilateral infiltrates. Blood work is reviewed. D-dimer is slightly elevated and patient is sent for CTA of the chest. CTA reveals multifocal pneumonia with no evidence of PE. Patient was taken off any supplemental oxygen given placed on. O2 sat is around 91%. We ambulated him and his O2 sat did not drop below 91%. Patient states he was previously on 5 days of prednisone. I will go ahead and place him on 10 days of Decadron. He does have a pulse ox meter at home. He was advised to watch his oxygen and return if his O2 sat is consistently below 88%. At this time today I do not have documentation of him being hypoxic and requiring oxygen. Discharge Plan Triage Chief Complaint: Shortness of Breath ED Provider: Karen Chavez Dx/Rx/DC Orders Clinical Impression: COVID-19 Instructions: Coronavirus Disease 2019 (COVID-19): Overview, Coronavirus Disease 2019 (COVID-19): Caring for Yourself or Others Prescriptions: New dexamethasone [Decadron] 6 mg tablet 6 mg PO DAILY Qty: 9 RF: 0 No Action albuterol sulfate 90 mcg/actuation HFA aerosol inhaler 3 puff IN Q6H PRN PRN (Reason: Sob &/Or Wheezing) RF: 0 ondansetron 4 mg tablet,disintegrating 4 mg PO Q8H PRN PRN (Reason: Nausea) Qty: 20 RF: 0 acetaminophen [Tylenol 8 Hour] 650 mg tablet extended release 650 mg PO Q8H PRN (Reason: fever) Qty: 20 RF: 0 prednisone 50 mg tablet 50 mg PO DAILY Qty: 5 RF: 0 ondansetron HCl [Zofran] 4 mg tablet 4 mg PO Q8H Qty: 20 RF: 0 Primary Care Provider: Domo Cheng Referrals: Domo Cheng MD [Primary Care Provider] - 1-2 Weeks Disposition Disposition: Home, Self Care
--- NOTE | 2020-11-08 05:21 | CT_ITS ---
STUDY: CTA CHEST REASON FOR EXAM: Male, 20 years old. SOB, INCREASED D DIMER COVID RADIATION DOSAGE (If Supplied By Facility): CTDIvol = ( 16.22 ) mGy, DLP = ( 562.70 ) mGycm TECHNIQUE: The examination was performed with the intravenous administration of IV 100mL Isovue-370. Post-processing of the angiographic images was performed, with multiplanar reformation and 3D reconstruction. Individualized dose optimization techniques were used for this CT. COMPARISON: August 05, 2020 CT scan chest FINDINGS: Normal enhancement of the main pulmonary artery and right and left pulmonary arteries. Normal enhancement of the bilateral peripheral pulmonary arteries. There is no demonstrated pulmonary embolism. Normal thoracic aorta and visualized great vessels. There is no demonstrated aortic dissection. Normal heart and pericardium. Normal mediastinum. Normal hilar regions. Normal visualized trachea and bronchi. There are multifocal patchy worsening infiltrates when compared to prior study. Normal pleura. Normal chest wall structures. Normal osseous structures. There is hepatic steatosis. There is mild splenomegaly. CT/CTA Chest W/WO Contrast IMPRESSION: Worsening multifocal pneumonia. No visualized pulmonary embolism. Electronically Signed: Lisa Alvarado MD at 5:54 EDT Tel , Service support ,
[2020-11-08 07:47] VITALS: BP 124/73; PULSE 87; RESP 18; O2SAT 97
[2020-11-08 09:52] LABS: Anion Gap 8 (5-15); BUN 10 mg/dL (7-18); Calcium,Total 8.5 mg/dL (8.5-10.1); Chloride 103 mmol/L (98-107); Creatinine, Serum 0.91 mg/dL (0.70-1.30); EST Glomerular Filtration Rate 111 mL/min (>60); Est Glom Filt Rate - Afr Amer 135 mL/min (>60); Estimated Creatinine Clearance 139.76 ml/min; Glucose 105 mg/dL (74-106); Lactic Acid 1.5 mmol/L (0.4-1.9); Potassium 3.6 mmol/L (3.5-5.1); Sodium Level 138 mmol/L (136-145)
[2020-11-08 11:03] LABS: D-Dimer Quantitative (DVT/PE) 0.55 FEU/ug/m (0.27-0.49)
[2020-11-08 11:04] LABS: Absolute Neutrophil Count 2.4 X10^3/uL (2.0-7.7); Basophil% 0.7 % (0-1); Eosinophils% 0.2 % (0-5); Hematocrit 42.1 % (40-54); Hemoglobin 14.4 g/dL (13.0-16.5); Lymphocyte # 1.72 X10^3/ul (0.83-4.51); Lymphocyte % 37.9 % (19-41); Mean Corp Hgb Conc 34.2 g/dL (32-36); Mean Corpuscular Hgb 28.1 pg (27.0-32.0); Mean Corpuscular Volume 82.2 fL (80-94); Mean Platelet Vol. 10.5 fl (6.2-12.0); Neutrophil # 2.35 X10^3/uL (2.7-7.7); Neutrophil % 51.8 % (47-70); Platelet Count 192 K/mm3 (150-450); RBC Distribution Width SD 39.2 fl (35.1-43.9); Red Blood Count 5.12 M/mm3 (4.6-6.2); White Blood Count 4.5 K/mm3 (4.4-11.0)
[2020-11-08 11:05] LABS: Absolute Lymphocyte Count 1.72 X10^3/uL (0.83-4.51); NRBC Flagged by Analyzer 0 % (0-5)
== END 2020-11-08 07:42 | disposition home or self-care (01) ==
PROVIDERS: Emergency Provider Emergency Medicine; PCP Family Medicine
DX: U07.1 COVID-19 (principal); J12.82 Pneumonia due to coronavirus disease 2019; R11.2 Nausea with vomiting, unspecified; J45.909 Unspecified asthma, uncomplicated; Z79.52 Long term (current) use of systemic steroids; Z79.899 Other long term (current) drug therapy; Z87.891 Personal history of nicotine dependence
CPT/HCPCS: 36415; 71045; 71275; 80048; 83605; 85025; 85379; 87040; 99283; 99285; Q9967; A4216

== ENCOUNTER 2021-03-29 17:11 | Emergency (ER) | payer OTHER, MEDICAID, SELFPAY ==
[2021-03-29 17:12] VITALS: BP 140/88; PULSE 84; RESP 18; TEMP 36.1; O2SAT 96; BMI 35.2
--- NOTE | 2021-03-29 18:44 | EX.ED.DYSGE1 ---
HPI History of Present Illness Chief Complaint: Anxiety Informant: patient Narrative Narrative: Patient here concerns for increasing anxiety and dyspnea after starting buspirone by his physician, Dr. Cho 2 days ago for depression. Currently denies any suicidal homicidal ideations. He states age of 12 was started on SSRI took it for 2 weeks and had similar symptoms. Denies tobacco alcohol or any illicit drug use. Denies vomiting or diarrhea. Denies cough. He states he did not have the symptoms prior to starting the new medication. Prior similar symptoms: Yes PFSH [facility] Medical History Asthma Costochondritis Opiate addiction Home Medications albuterol sulfate 3 puff IN Q6H PRN PRN 07/14/19 [History Last Taken Unknown] acetaminophen [Tylenol 8 Hour] 650 mg PO Q8H PRN #20 tab 10/30/20 [Rx Last Taken Unknown] ondansetron 4 mg PO Q8H PRN PRN #20 tab 10/30/20 [Rx Last Taken Unknown] prednisone 50 mg PO DAILY #5 tab 10/30/20 [Rx Last Taken Unknown] ondansetron HCl [Zofran] 4 mg PO Q8H #20 tab 11/05/20 [Rx Last Taken Unknown] dexamethasone [Decadron] 6 mg PO DAILY #9 tab 11/08/20 [Rx Last Taken Unknown] hydroxyzine pamoate 50 mg PO TID PRN PRN #30 cap 03/29/21 [Rx Last Taken Unknown] Allergy/AdvReac Type Severity Reaction Status Date / Time No Known Allergies Allergy Verified 03/29/21 17:12 Social History Smoking Status: Former smoker ROS ROS ED Constitutional Constitutional ED: Denies chills, fever(s) or sweats Eyes Eyes: Denies change in vision ENT ENT ED: Denies dysphagia or sore throat Cardiovascular Cardiovascular: Denies chest pain, leg edema, palpitations or racing heartbeat Respiratory/Chest Respiratory/Chest: Denies cough, dyspnea or dyspnea on exertion Gastrointestinal Gastrointestinal: Denies abdominal pain, diarrhea, nausea or vomiting Genitourinary Genitourinary ED: Denies dysuria, hematuria or urinary frequency Musculoskeletal Musculoskeletal: Denies back pain, extremity pain or neck pain Integumentary Denies rash or wounds Neurologic Neurologic: Denies headache(s), paresthesias or weakness Psychiatric Psychiatric: Reports anxiety; Denies suicidal ideation or suicidal thoughts EXAM Physical Exam Const Vital Signs: 03/29/21 17:12 Temperature 97 F L Temperature Source Temporal Pulse Rate 84 Respiratory Rate 18 Blood Pressure 140/88 H Blood Pressure Mean 105 Pulse Ox 96 Oxygen Delivery Method Room Air Positive well nourished and well developed General Appearance ED: well developed and NAD HEENT Reports moist mucous membranes normocephalic and atraumatic Eyes PERRL, EOMs intact bilaterally and conjunctivae normal General Eye ED: Yes normal appearance of both eyes Neck no lymphadenopathy and supple General: Negative for tenderness Chest Wall Chest: Negative for tenderness Resp normal respiratory effort and normal air movement Resp Narrative: Symmetric breath sounds. Effort and Inspection: symmetric chest movement; Negative for respiratory distress Cardio regular rate, regular rhythm and no murmurs Peripheral Pulses: pulses 2+ throughout GI normal to inspection, nondistended, normoactive bowel sounds and non-tender Palpation: Negative for guarding or rebound tenderness present Back/Spine no CVA tenderness and no thoracic nor lumbar tenderness Extremity normal to inspection General Extremety ED: Negative for edema or tenderness General Extremity: Negative for edema Neuro oriented x3 and no sensory deficits noted Sensorium / Orientation: awake and alert Skin no rashes or lesions noted and no wounds MDM MDM MDM Narrative Medical decision making narrative: Patient vital signs stable symmetric breath sounds. Nontoxic. Symptoms started after starting buspirone. Has only been on it for 2 days at 150 mg daily. Discussed with him to stop the medication since he is having these side effects. He denies suicidal homicidal ideations. Discussed patient prescription for hydroxyzine to use as needed. He will discuss with his physicians for different medications. Patient is being discharged under pandemic conditions under declared global, national and state disaster activation, with limited medical resources. Patient and community understands this. Results discussed in layman's terms to the patient satisfaction. All questions answered in layman's terms. Patient understands importance of follow-up care as directed. Patient has been instructed to return to the ED immediately if new symptoms, problems, or questions occur. We mutually agree with the plan of disposition. The patient understand that they may call or return with any questions or concerns at any time. Discharge Plan Triage Chief Complaint: Anxiety Other Complaint: Allergic Reaction ED Provider: Le,Guero Dx/Rx/DC Orders Clinical Impression: Anxiety, Medication side effect Instructions: ED Anxiety Reaction Prescriptions: New hydroxyzine pamoate [hydroxyzine pamoate] 25 MG capsule 50 mg PO TID PRN PRN (Reason: Anxiety) Qty: 30 RF: 0 No Action albuterol sulfate 90 mcg/actuation HFA aerosol inhaler 3 puff IN Q6H PRN PRN (Reason: Sob &/Or Wheezing) RF: 0 ondansetron 4 mg tablet,disintegrating 4 mg PO Q8H PRN PRN (Reason: Nausea) Qty: 20 RF: 0 acetaminophen [Tylenol 8 Hour] 650 mg tablet extended release 650 mg PO Q8H PRN (Reason: fever) Qty: 20 RF: 0 prednisone 50 mg tablet 50 mg PO DAILY Qty: 5 RF: 0 ondansetron HCl [Zofran] 4 mg tablet 4 mg PO Q8H Qty: 20 RF: 0 dexamethasone [Decadron] 6 mg tablet 6 mg PO DAILY Qty: 9 RF: 0 Primary Care Provider: Domo Cheng Referrals: Domo Cheng MD [Primary Care Provider] - Activity Restrictions/Additional Instructions: Stop your buspirone medication since you have only been on it for 2 days. May take hydroxyzine as prescribed. Discussed with your doctor about a different medication. Disposition Disposition: Home, Self Care
== END 2021-03-29 23:59 | disposition home or self-care (01) ==
LOC: ED 19:00
PROVIDERS: Emergency Provider Emergency Medicine; Visit Provider Emergency Medicine
DX: F41.8 Other specified anxiety disorders (principal); T43.595A Adverse effect of other antipsychotics and neuroleptics, initial encounter; J45.909 Unspecified asthma, uncomplicated; Z79.52 Long term (current) use of systemic steroids; Z79.899 Other long term (current) drug therapy; Z87.891 Personal history of nicotine dependence
CPT/HCPCS: 99282

== ENCOUNTER 2021-05-22 02:29 | Emergency (ER) | payer OTHER, MEDICAID, SELFPAY ==
[2021-05-22 02:29] VITALS: BP 128/68; PULSE 102; RESP 24; TEMP 37; O2SAT 95; BMI 37.3
[2021-05-22 02:33] VITALS: BP 128/68; PULSE 95; RESP 22; TEMP 37.1; O2SAT 95
--- NOTE | 2021-05-22 02:44 | EX.ED.DYSGE1 ---
HPI History of Present Illness Chief Complaint: General Illness Narrative Narrative: Patient presents with myalgias fever and cough for the past 2 days. It is getting worse. He sometimes brings up sputum it is slightly dark but mostly times his cough is dry. He has myalgias throughout his arms legs and trunk. No nausea vomiting or diarrhea. No constipation. No neck pain or stiffness. No rash. [facility] Medical History Asthma Costochondritis Opiate addiction Home Medications acetaminophen [Tylenol 8 Hour] 650 mg PO Q8H PRN #20 tab 10/30/20 [Rx Last Taken Unknown] Allergy/AdvReac Type Severity Reaction Status Date / Time No Known Allergies Allergy Verified 05/22/21 02:35 Social History Smoking Status: Former smoker ROS ROS ED ROS Narrative Past medical history: Reviewed, mostly unremarkable except for history of asthma Medications: None Social history: History of opiate addiction Review of systems: All systems negative except as indicated General: No fever Eyes: No visual changes ENT: No upper airway congestion, normal voice Neck: No neck pain Cardiovascular: No chest pain Respiratory: As in HPI Gastrointestinal: No abdominal pain, nausea vomiting or diarrhea Genitourinary: No dysuria Musculoskeletal: Generalized myalgias Skin: No rash Neurological: No memory loss, confusion or any focal weakness Psych: No recent behavioral changes Hematologic: No easy bleeding or easy bruising EXAM Physical Exam Narrative Exam Narrative: Physical exam General: Patient appears anxious but he does not appear uncomfortable. He does not appear acutely ill. Head: Normocephalic, Atraumatic Eyes: Conjunctiva not pale ENT: Moist mucous membranes. Some upper airway congestion. Normal posterior oropharynx. Neck: Supple, Nontender, No lymphadenopathy Cardiovascular: Regular rate, Regular rhythm Respiratory: No distress, CTA bilaterally. Initially he was tachypneic in triage, as I am talking to him his respiratory rate is about 16 or 17. No wheezing noted. Abdomen: Soft, Nontender, Nondistended Back: Nontender, Normal Inspection. Negative for: CVA tenderness Extremities: Nontender, No edema. No calf pain. Skin: Normal color, No rash Neurological: Alert, Normal Strength, Normal Sensation Psychological: Normal affect Const Vital Signs: 04/11/22 02:29 05/22/21 02:33 05/22/21 02:36 Temperature 98.6 F 98.7 F Temperature Source Temporal Temporal Pulse Rate 102 H 95 Respiratory Rate 24 H 22 H Respiratory Effort Short of Breath Blood Pressure 128/68 H 128/68 H Blood Pressure Mean 88 88 Pulse Ox 95 95 Oxygen Delivery Method Room Air Room Air MDM MDM MDM Narrative Medical decision making narrative: Patient appears well, he likely has an upper respiratory infection, he does not have a fever in the emergency department, he significantly improved after Toradol. His influenza is negative. I am not worried about a PE. Patient has fever chills myalgias with a cough heart rate is now in the 80s respiration rate is about 18 now, PERC is negative. If any changes she is to return. Radiography Diagnostic Testing: Clinical Impression(s) from Imaging Studies Chest X-Ray 05/22/21 02:55 IMPRESSION: Hypoventilatory changes. Minimal opacities in the lung bases likely atelectasis. No definite infiltrates. Follow-up may be helpful. Electronically Signed: Radha Howell MD at 3:44 EDT , Chest x-ray read by me and radiologist is normal Discharge Plan Triage Chief Complaint: General Illness ED Provider: Toney Johnson Dx/Rx/DC Orders Clinical Impression: Acute upper respiratory infection, Myalgia Instructions: ED URI, Viral, No Abx (Adult) Prescriptions: No Action acetaminophen [Tylenol 8 Hour] 650 mg tablet extended release 650 mg PO Q8H PRN (Reason: fever) Qty: 20 RF: 0 Primary Care Provider: Care Physician,No Primary Referrals: Toney Mcwilliams MD [STAFF PHYSICIAN] - Care Physician,No Primary [Primary Care Provider] - Disposition Disposition: Home, Self Care
--- NOTE | 2021-05-22 02:55 | RAD_ITS ---
STUDY: X-RAY CHEST REASON FOR EXAM: Male, 21 years old. cough TECHNIQUE: AP portable. 2:46 AM. COMPARISON: 11/08/2020. FINDINGS: LUNGS: Low lung volumes. Minimal opacities in the lung bases. No consolidation. No pneumothorax. MEDIASTINUM: Unremarkable. CARDIAC SILHOUETTE: Not enlarged. BONES AND SOFT TISSUES: No acute abnormalities. RAD/Chest 1 View (Portable) IMPRESSION: Hypoventilatory changes. Minimal opacities in the lung bases likely atelectasis. No definite infiltrates. Follow-up may be helpful. Electronically Signed: Radha Howell MD at 3:44 EDT ,
[2021-05-22] MEDS: Ketorolac 30 MG/ML Syringe IM (03:02)
[2021-05-22 04:55] VITALS: BP 121/78; PULSE 74; RESP 16; RESP 17; TEMP 36.8; O2SAT 98
== END 2021-05-22 04:56 | disposition home or self-care (01) ==
PROVIDERS: Emergency Provider Emergency Medicine; Visit Provider Emergency Medicine
DX: J06.9 Acute upper respiratory infection, unspecified (principal); M79.10 Myalgia, unspecified site; J45.909 Unspecified asthma, uncomplicated; Z87.891 Personal history of nicotine dependence
CPT/HCPCS: 71045; 87804; 96372; 99282

== ENCOUNTER 2021-08-14 08:36 | Emergency (ER) | payer OTHER, MEDICAID, SELFPAY ==
[2021-08-14 08:36] VITALS: BP 131/77; PULSE 83; RESP 18; TEMP 36.6; O2SAT 95; BMI 33.9
--- NOTE | 2021-08-14 08:50 | EX.ED.VIS.UR ---
HPI HPI - URI History of Present Illness Chief Complaint: Cough Narrative Narrative: 21-year-old male with cough, congestion. He states he does not know if he had a fever because he does not have a thermometer at home. He is concerned he might have COVID or influenza. He has not been tested. He is unsure if he has been in contact with admitted sick. He has nausea but states he took Reglan prior to coming and does not require anything for nausea. He does admit to generalized fatigue and body aches as well. ROS ROS ED Constitutional Constitutional ED: Reports chills and subjective Eyes Eyes: Denies change in vision or diplopia ENT ENT ED: Denies rhinorrhea or sore throat Cardiovascular Cardiovascular: Denies chest pain or palpitations Respiratory/Chest Respiratory/Chest: Reports cough; Denies dyspnea Gastrointestinal Gastrointestinal: Reports nausea; Denies abdominal pain or constipation Genitourinary Genitourinary ED: Denies dysuria or hematuria Musculoskeletal Musculoskeletal: Reports myalgias; Denies arthralgias or back pain Integumentary Denies abscess or Abrasions Neurologic Neurologic: Reports headache(s); Denies paresthesias or weakness Psychiatric Psychiatric: Denies anxiety or depression [facility] Medical History Asthma Costochondritis Opiate addiction Home Medications acetaminophen 650 mg tablet,extended release (Tylenol 8 Hour) 650 mg PO Q8H PRN fever #20 tabs 10/30/20 [Rx Last Taken Unknown] Allergy/AdvReac Type Severity Reaction Status Date / Time No Known Allergies Allergy Verified 08/14/21 08:38 Social History Smoking Status: Former smoker EXAM Physical Exam Const Vital Signs: 08/14/21 08:36 08/14/21 08:56 Temperature 98 F Temperature Source Temporal Pulse Rate 83 Respiratory Rate 18 Respiratory Effort Normal Respiratory Depth Normal Respiratory Pattern Normal Blood Pressure 131/77 H Blood Pressure Mean 95 Pulse Ox 95 Oxygen Delivery Method Room Air Room Air Positive well nourished General Appearance ED: NAD; Negative for pallor HEENT Reports moist mucous membranes normocephalic and atraumatic Eyes PERRL and EOMs intact bilaterally General Eye ED: Negative for pale conjunctiva or scleral icterus Resp normal respiratory effort and clear to auscultation bilaterally Auscultation: Negative for rales, rhonchi or wheezes Cardio Rate: regular rate Rhythm: regular rhythm Extremity normal to inspection Neuro oriented x3 and CN's II-XII intact bilaterally Sensorium / Orientation: alert Motor Exam: strength 5/5 throughout Psych mental status grossly normal Skin General Skin Exam: Negative for jaundice or pallor MDM MDM MDM Narrative Medical decision making narrative: Patient presenting with viral symptoms. His COVID and influenza are negative here. Chest x-ray shows no acute cardiopulmonary process on my interpretation and radiologist agree. Patient's vital signs are normal. He does have some nausea but he is taking Reglan at home for this. I think patient stable for discharge at this time. Return precautions discussed. Impression: 1. Viral sent Lab Data Attestation: I reviewed the patient's lab results. Radiography Diagnostic Testing: Clinical Impression(s) from Imaging Studies Chest X-Ray 08/14/21 09:01 IMPRESSION: No acute cardiopulmonary abnormality. Electronically Signed: Liam Jiang MD at 9:21 EDT , Discharge Plan Triage Chief Complaint: Cough ED Provider: Chris Reyes Dx/Rx/DC Orders Instructions: ED Viral Syndrome (Adult) Prescriptions: No Action acetaminophen [Tylenol 8 Hour] 650 mg tablet extended release 650 mg PO Q8H PRN (Reason: fever) Qty: 20 0RF Primary Care Provider: Domo Cheng Referrals: Care Physician,No Primary [NON-STAFF] - Disposition Disposition: Home, Self Care
[2021-08-14 08:56] VITALS: O2SAT 97
--- NOTE | 2021-08-14 09:01 | RAD_ITS ---
EXAM: XR CHEST, 1 VIEW CLINICAL INDICATION: cough TECHNIQUE: Frontal view of the chest. This report was created using [employer] report generation technology. COMPARISON: XR Chest dated May 22, 2021 FINDINGS: LUNGS AND PLEURAL SPACES: Unremarkable. No consolidation or edema. No pneumothorax. No effusion. HEART: Unremarkable. Normal heart size. MEDIASTINUM: Central airways and mediastinal contour are unremarkable. BONES/JOINTS: Unremarkable. SOFT TISSUES: Unremarkable. RAD/Chest 1 View (Portable) IMPRESSION: No acute cardiopulmonary abnormality. Electronically Signed: Liam Jiang MD at 9:21 EDT ,
== END 2021-08-14 09:32 | disposition home or self-care (01) ==
PROVIDERS: Emergency Provider Student in an Organized Health Care Education/Training Program; PCP Family Medicine; Visit Provider Student in an Organized Health Care Education/Training Program
DX: R05.9 Cough, unspecified (principal); R11.0 Nausea; Z20.822 Contact with and (suspected) exposure to COVID-19; J45.909 Unspecified asthma, uncomplicated; Z87.891 Personal history of nicotine dependence
CPT/HCPCS: 71045; 87428; 99282

== ENCOUNTER 2021-09-29 02:40 | Emergency (ER) | payer OTHER, MEDICAID, SELFPAY ==
[2021-09-29 02:41] VITALS: BP 143/85; PULSE 106; RESP 16; TEMP 36.8; O2SAT 93; BMI 36.6
--- NOTE | 2021-09-29 02:45 | RAD_ITS ---
STUDY: X-RAY CHEST REASON FOR EXAM: Male, 21 years old. Cough TECHNIQUE: Portable, upright, AP chest radiograph COMPARISON: 05/22/2021 FINDINGS: Right lung base atelectasis. No focal consolidation. There is no demonstrated pleural abnormality. Normal size heart. Normal mediastinum and jignesh. Normal visualized pulmonary arteries. Normal visualized aortic arch and descending thoracic aorta. There is no demonstrated abnormality of the visualized soft tissue structures of the upper abdomen. RAD/Chest 1 View (Portable) IMPRESSION: Right lung base atelectasis. Electronically Signed: Toney Liu MD at 3:04 EDT ,
--- NOTE | 2021-09-29 02:46 | EDS_ITS ---
HPI History of Present Illness Chief Complaint: Fever Narrative Narrative: 21-year-old male presents with fever, chills, body aches. He states that his girlfriend tested positive for COVID Saturday. He reports that he is tested himself twice and these have been negative. He states that he has Reglan that he takes at home which helps with his nausea and he is able to hold down food and fluids. He states that he has nebulizers at home and even though he is short of breath has not tried these. He states he feels like he might be wheezing but he is not sure. Patient states that his main concern is that his job wants him to go to work he does not test positive for COVID-19. He wants to be retested. [facility] Medical History Asthma Costochondritis Opiate addiction Home Medications acetaminophen 650 mg tablet,extended release (Tylenol 8 Hour) 650 mg PO Q8H PRN fever #20 tabs 10/30/20 [Rx Last Taken Unknown] metoclopramide HCl 10 mg tablet (Reglan) 10 mg PO Q6H PRN nausea and vomiting #10 tabs 08/14/21 [Rx Last Taken Unknown] prednisone 50 mg tablet 50 mg PO DAILY 5 days #5 tabs 09/29/21 [Rx Last Taken Unknown] Allergy/AdvReac Type Severity Reaction Status Date / Time ondansetron [From Zofran] AdvReac Other Verified 09/29/21 02:45 Social History Smoking Status: Former smoker ROS ROS ED Constitutional Constitutional ED: Reports chills and fever(s) Eyes Eyes: Denies change in vision or diplopia ENT ENT ED: Reports sore throat; Denies rhinorrhea Cardiovascular Cardiovascular: Denies chest pain or palpitations Respiratory/Chest Respiratory/Chest: Reports cough and dyspnea Gastrointestinal Gastrointestinal: Denies abdominal pain or constipation Genitourinary Genitourinary ED: Denies dysuria or hematuria Musculoskeletal Musculoskeletal: Denies arthralgias Integumentary Denies abscess or Abrasions Neurologic Neurologic: Reports headache(s); Denies paresthesias Psychiatric Psychiatric: Denies anxiety or depression EXAM Physical Exam Const Vital Signs: 09/29/21 02:41 09/29/21 02:46 09/29/21 03:03 Temperature 98.3 F Temperature Source Oral Pulse Rate 106 H 110 H Respiratory Rate 16 16 Respiratory Effort Non-Labored Respiratory Pattern Normal Blood Pressure 143/85 H Blood Pressure Mean 104 Pulse Ox 93 Oxygen Delivery Method Room Air Positive well nourished General Appearance ED: NAD; Negative for pallor HEENT Reports moist mucous membranes Negative for trauma Eyes PERRL and EOMs intact bilaterally General Eye ED: Negative for pale conjunctiva or scleral icterus Resp normal respiratory effort Auscultation: wheezes expiratory wheezes (Scant); Negative for rales or rhonchi Cardio regular rate Rate: tachycardic GI normal to inspection, nondistended, normoactive bowel sounds Neuro oriented x3 and CN's II-XII intact bilaterally Sensorium / Orientation: alert Psych mental status grossly normal Skin no rashes or lesions noted General Skin Exam: Negative for jaundice or pallor MDM MDM MDM Narrative Medical decision making narrative: Patient presenting with a viral syndrome. His girlfriend has COVID-19. This is likely the cause although he has not tested positive yet. He is not significant ly wheezing on examination but requested breathing treatment because he feels like he is wheezing. Patient given a dose of steroids here as well. Will obtain a chest x-ray. I did offer something for nausea but he states that the Reglan is working. I will ambulate the patient with a pulse ox as well. Rapid COVID is negative. Patient does report he is already tested for influenza a and B and these were negative. He is concerned that he has to work. Patient was ambulated and made patient was ambulated with pulse ox on room air and maintain sats of 93%. He was given breathing treatments which seem to help. He does have breathing treatments at home which I encouraged him to use. I will give him a prednisone burst. Chest x-ray on my interpretation shows no acute cardiopulmonary process and radiologist does agree. Patient was given a work note for couple of days. A COVID PCR was sent that he would have confirmatory results. He does not need to stay for this. He knows that this will text his phone. Impression: 1. Febrile illness 2. Dyspnea 3. Asthma exacerbation 4. Viral syndrome Radiography Diagnostic Testing: Clinical Impression(s) from Imaging Studies Chest X-Ray 09/29/21 02:45 IMPRESSION: Right lung base atelectasis. Electronically Signed: Toney Liu MD at 3:04 EDT , Discharge Plan Triage Chief Complaint: Fever ED Provider: Chris Reyes Dx/Rx/DC Orders Instructions: ED Viral Syndrome (Adult) Prescriptions: New prednisone 50 mg tablet 50 mg PO DAILY 5 Days Qty: 5 0RF No Action acetaminophen [Tylenol 8 Hour] 650 mg tablet extended release 650 mg PO Q8H PRN (Reason: fever) Qty: 20 0RF metoclopramide HCl [Reglan] 10 mg tablet 10 mg PO Q6H PRN (Reason: nausea and vomiting) Qty: 10 0RF Stand Alone Forms: ED Work / School Excuse Primary Care Provider: Care Physician,No Primary Referrals: Jase Taylor MD [Med Staff - Classifier] - 3-5 Days Care Physician,No Primary [Primary Care Provider] - Disposition Disposition: Home, Self Care
[2021-09-29] MEDS: dexAMETHasone 4 MG Tablet 6 MG PO (03:02)
[2021-09-29] MEDS: Albuterol 2.5 MG/3 ML VIAL.NEB. INHALATION (03:02)
[2021-09-29] MEDS: Ipratropium/Albuterol Sulfate 3 ML AMPUL.NEB INHALATION (03:02)
[2021-09-29 03:03] VITALS: PULSE 110; RESP 16
[2021-09-29 03:17] VITALS: O2SAT 95
[2021-09-29 03:28] VITALS: RESP 18; O2SAT 95
== END 2021-09-29 03:29 | disposition home or self-care (01) ==
PROVIDERS: Emergency Provider Student in an Organized Health Care Education/Training Program; Visit Provider Student in an Organized Health Care Education/Training Program
DX: J45.901 Unspecified asthma with (acute) exacerbation (principal); B34.9 Viral infection, unspecified; R11.0 Nausea; Z20.822 Contact with and (suspected) exposure to COVID-19; Z87.891 Personal history of nicotine dependence
CPT/HCPCS: 71045; 87635; 87811; 94640; 99283; U0003; U0005

== ENCOUNTER 2022-01-21 23:28 | Emergency (ER) | payer OTHER, MEDICAID, SELFPAY ==
[2022-01-21 23:29] VITALS: BP 133/84; PULSE 75; RESP 15; TEMP 36.1; O2SAT 99; BMI 35.9
--- NOTE | 2022-01-21 23:51 | ED.VIS.DENTA ---
HPI History of Present Illness Chief Complaint: Dental Informant: patient Onset/Context/Timing Onset: Days (4) Context: Gradual Onset Timing: Continuous Quality: ache Location: bilat mandib wisdom teeth Current Severity: Severe Maximum Severity: Severe Worsened by: eating Relieved by: - (not by excedrin, APAP) Associated Symptoms Assocated Symptom - Dental: Negative for fever, jaw swelling or face swelling Narrative Narrative: Patient states remotely he was chewing on hard candy and broke fragments off of both mandibular wisdom teeth, he has sought out oral surgery to get them removed but has yet to see 1. 4 days ago both of these teeth started hurting worse, and have gradually worsened. Denies any other symptom such as bleeding, foul taste or discharge, swelling, fevers. PFSH PFSH Medical History Asthma Costochondritis Opiate addiction Home Medications acetaminophen 650 mg tablet,extended release (Tylenol 8 Hour) 650 mg PO Q8H PRN fever #20 tabs 10/30/20 [Rx Last Taken Unknown] amoxicillin 500 mg tablet 500 mg PO TID #30 tabs 01/21/22 [Rx Last Taken Unknown] ibuprofen 600 mg tablet 600 mg PO Q8H PRN PRN pain #20 TABLETS 01/21/22 [Rx Last Taken Unknown] Allergy/AdvReac Type Severity Reaction Status Date / Time ondansetron [From Zofran] AdvReac Other Verified 01/21/22 23:32 Social History Smoking Status: Former smoker ROS ROS ED Constitutional Constitutional ED: Denies chills or fever(s) Eyes Eyes: Denies change in vision or double vision ENT ENT ED: Reports dental pain; Denies sinus pain or throat swelling Cardiovascular Cardiovascular: Denies chest pain or palpitations Respiratory/Chest Respiratory/Chest: Denies cough or dyspnea Integumentary Denies abscess or rash Neurologic Neurologic: Denies headache(s), paresthesias or weakness EXAM Physical Exam Const Vital Signs: 01/21/22 23:29 Temperature 97.0 F L Temperature Source Temporal Pulse Rate 75 Respiratory Rate 15 Blood Pressure 133/84 H Blood Pressure Mean 100 Pulse Ox 99 Oxygen Delivery Method Room Air Positive well nourished and well developed General Appearance ED: well developed and NAD HEENT HEENT Narrative: Teeth numbers 17 and 32 both are decayed, worse on #17, and are mild-moderately tender. No trismus. No abscess. No gingival abnormality or bleeding. Tongue normal. No sublingual edema. No stridor. Speech is normal. Face and Sinus: sinuses nontender Throat: posterior oropharynx normal Eyes PERRL and EOMs intact bilaterally Neck no lymphadenopathy and supple Resp normal respiratory effort Neuro oriented x3 and CN's II-XII intact bilaterally Sensorium / Orientation: alert Gait (Neuro): normal gait Psych mental status grossly normal and thought process normal Skin no rashes or lesions noted and no wounds MDM MDM MDM Narrative Medical decision making narrative: [place] temporary filling was placed in both teeth by this physician and tolerated well. He was given a single tramadol, Naprosyn 500 mg, amoxicillin 500 mg, and discharged on antibiotics and ibuprofen to follow-up with dentistry. Procedures Other Procedures Procedure(s): Temporary filling placement teeth numbers 17, 32 see above Discharge Plan Triage Chief Complaint: Dental ED Provider: Tao Montenegro Dx/Rx/DC Orders Clinical Impression: Pain due to dental caries Instructions: ED Dental Pain, ED Dental Cavity Prescriptions: New amoxicillin 500 MG tablet 500 mg PO TID Qty: 30 0RF ibuprofen 600 MG tablet 600 mg PO Q8H PRN PRN (Reason: pain) Qty: 20 0RF No Action acetaminophen [Tylenol 8 Hour] 650 mg tablet extended release 650 mg PO Q8H PRN (Reason: fever) Qty: 20 0RF Primary Care Provider: Care Physician,No Primary Referrals: Care Physician,No Primary [Primary Care Provider] - Dentist,Your [STAFF PHYSICIAN] - As soon as possible Disposition Disposition: Home, Self Care
[2022-01-21] MEDS: AMOXICILLIN 500 MG CAPSULE PO (23:54)
[2022-01-21] MEDS: Naproxen 250 MG Tablet 500 MG PO (23:54)
[2022-01-21] MEDS: traMADol 50 MG Tablet PO (23:55)
== END 2022-01-21 23:58 | disposition home or self-care (01) ==
PROVIDERS: Emergency Provider Emergency Medicine; Visit Provider Emergency Medicine
DX: K02.9 Dental caries, unspecified (principal); Z87.891 Personal history of nicotine dependence
CPT/HCPCS: 99283

== ENCOUNTER 2022-03-26 16:53 | Emergency (ER) | payer OTHER, MEDICAID, SELFPAY ==
[2022-03-26 16:54] VITALS: BP 123/68; PULSE 107; RESP 18; TEMP 36.9; O2SAT 99; BMI 35.9
--- NOTE | 2022-03-26 17:04 | EDS_ITS ---
HPI History of Present Illness Chief Complaint: General Illness Narrative Narrative: Patient presents with cough congestion myalgias and fevers since yesterday. He has had some diarrhea and couple episodes of vomiting he has sick contacts, quite a few people at his job have COVID. [facility] Medical History (Updated 03/26/22 @ 17:[address] Toney Johnson MD) Asthma Costochondritis Opiate addiction Home Medications acetaminophen 650 mg tablet,extended release (Tylenol 8 Hour) 650 mg PO Q8H PRN fever #20 tabs 10/30/20 [Rx Last Taken Unknown] amoxicillin 500 mg tablet 500 mg PO TID #30 tabs 01/21/22 [Rx Last Taken Unknown] ibuprofen 600 mg tablet 600 mg PO Q8H PRN PRN pain #20 TABLETS 01/21/22 [Rx Last Taken Unknown] metoclopramide HCl 10 mg tablet (Reglan) 10 mg PO Q6H PRN nausea and vomiting #10 tabs 03/26/22 [Rx Last Taken Unknown] naproxen 500 mg tablet (Naprosyn) 500 mg PO BID #20 tabs 03/26/22 [Rx Last Taken Unknown] Allergy/AdvReac Type Severity Reaction Status Date / Time ondansetron [From Zofran] AdvReac Other Verified 03/26/22 16:57 Surgical History (Updated 03/26/22 @ 17:07 by Rhonda Jordan) History of tonsillectomy Social History Smoking Status: Former smoker ROS ROS ED ROS Narrative Review of systems: All systems negative except as indicated General: Subjective fevers Eyes: Upper airway congestion ENT: No upper airway congestion, normal voice Neck: No neck pain Cardiovascular: No chest pain Respiratory: No shortness of breath or cough Gastrointestinal: No abdominal pain. Some nausea, vomiting and diarrhea. Genitourinary: No dysuria Musculoskeletal: Generalized myalgias Skin: No rash Neurological: No memory loss, confusion or any focal weakness EXAM Physical Exam Narrative Exam Narrative: Physical exam General: Well nourished, Well developed, No Acute Distress Head: Normocephalic, Atraumatic Eyes: Conjunctiva not pale ENT: Some upper airway congestion, moist mucous membranes Neck: Supple, Nontender, No lymphadenopathy Cardiovascular: Regular rate, Regular rhythm Respiratory: No distress, CTA bilaterally Abdomen: Soft, Nontender, Nondistended Back: Nontender, Normal Inspection. Negative for: CVA tenderness Extremities: Nontender, No edema Skin: Normal color, No rash Neurological: Alert, Normal Strength, Normal Sensation Psychological: Normal affect Const Vital Signs: 03/26/22 16:54 Temperature 98.5 F Temperature Source Temporal Pulse Rate 107 H Respiratory Rate 18 Blood Pressure 123/68 H Blood Pressure Mean 86 Pulse Ox 99 Oxygen Delivery Method Room Air MDM MDM MDM Narrative Medical decision making narrative: Patient has upper airway congestion rhinorrhea, he has myalgias, this is likely a viral etiology, he has been exposed to COVID and we will check a COVID and influenza. Otherwise he received Toradol and Reglan in the emergency department, he appears well he is slightly tachycardic but is tolerating p.o. fluids and has moist membranes I do not believe IV fluids are needed at this time. His lungs are clear at this time and he is not in respiratory distress his pulse ox is normal therefore I do not believe we need a chest x-ray patient will be discharged with follow-up and symptomatic treatment. Discharge Plan Triage Chief Complaint: General Illness ED Provider: Toney Johnson Dx/Rx/DC Orders Clinical Impression: Acute viral syndrome, Nausea & vomiting, Myalgia Instructions: ED Viral Syndrome (Adult) Prescriptions: New metoclopramide HCl [Reglan] 10 mg tablet 10 mg PO Q6H PRN (Reason: nausea and vomiting) Qty: 10 0RF naproxen [Naprosyn] 500 mg tablet 500 mg PO BID Qty: 20 0RF No Action acetaminophen [Tylenol 8 Hour] 650 mg tablet extended release 650 mg PO Q8H PRN (Reason: fever) Qty: 20 0RF amoxicillin 500 MG tablet 500 mg PO TID Qty: 30 0RF ibuprofen 600 MG tablet 600 mg PO Q8H PRN PRN (Reason: pain) Qty: 20 0RF Primary Care Provider: Florence Bryant NP Referrals: Florence Bryant NP, [facility] [Primary Care Provider] - 3-5 Days Disposition Disposition: Home, Self Care
[2022-03-26 17:06] VITALS: BP 123/68; PULSE 107; RESP 18; TEMP 36.9; O2SAT 99
[2022-03-26] MEDS: Metoclopramide 10 MG/10 ML UDC PO (17:24)
[2022-03-26] MEDS: Ketorolac 30 MG/ML Syringe IM (17:25)
[2022-03-26 17:46] VITALS: PULSE 98; RESP 17; O2SAT 98
== END 2022-03-26 17:48 | disposition home or self-care (01) ==
LOC: ED 17:19
PROVIDERS: Emergency Provider Emergency Medicine; PCP Clinical Nurse Specialist; Visit Provider Emergency Medicine
DX: R11.2 Nausea with vomiting, unspecified (principal); B34.9 Viral infection, unspecified; Z87.891 Personal history of nicotine dependence; Z20.822 Contact with and (suspected) exposure to COVID-19; R19.7 Diarrhea, unspecified; M79.10 Myalgia, unspecified site; J45.909 Unspecified asthma, uncomplicated
CPT/HCPCS: 87428; 96372; 99283

== ENCOUNTER 2023-08-10 02:39 | Emergency (ER) | payer BC, SELFPAY ==
[2023-08-10 02:39] VITALS: BP 126/85; PULSE 76; RESP 16; TEMP 36.1; O2SAT 98; BMI 33.5
[2023-08-10 02:42] VITALS: BP 126/85; PULSE 76; RESP 16; TEMP 36.1; O2SAT 98
--- NOTE | 2023-08-10 03:03 | EDS_ITS ---
HPI History of Present Illness Chief Complaint: Ear Problem Informant: patient Narrative Narrative: Patient is a 23-year-old male with past medical history of asthma and pulmonary nodules. He states he went to bed feeling normally and then awoke from sleep roughly 1 hour prior to arrival with a left ear pain. He denies any trauma or discharge from the ear. He denies any congestion cough sore throat or known sick contact. He does state that he went swimming roughly 7 to 10 days ago. He denies any right ear pain or discharge but with the pain waking him from sleep he has concern for infection and comes in for evaluation [facility] Medical History (Updated 08/10/23 @ 03:[address] Rome Gibbs, DO) Costochondritis Opiate addiction Asthma Home Medications ?Medication ?Instructions ?Recorded ?Last Taken ?Type amoxicillin 875 mg-potassium 1 tab PO BID 10 days #20 tabs 08/10/23 Unknown Rx clavulanate 125 mg tablet spgynwsy-buayhzhbc-megwkmbvf 3.5 4 drp LEFT EAR 4X/DAY 10 days #10 08/10/23 Unknown Rx mg-10,000 unit/mL-1 % ear mL drops,susp oxycodone-acetaminophen 5 mg-325 1 tab PO Q6H PRN pain 3 days #12 08/10/23 Unknown Rx mg tablet (Percocet) tabs Allergy/AdvReac Type Severity Reaction Status Date / Time ondansetron (From Zofran) AdvReac Other Verified 03/26/22 16:57 Surgical History (Updated 03/26/22 @ 17:07 by Rhonda Jordan) History of tonsillectomy Social History Smoking Status: Former smoker ROS ROS ED Constitutional Constitutional ED: Denies chills or fever(s) Eyes Eyes: Denies change in vision ENT ENT ED: Reports ear pain left; Denies rhinorrhea or sore throat Cardiovascular Cardiovascular: Denies chest pain Respiratory/Chest Respiratory/Chest: Denies cough or dyspnea Gastrointestinal Gastrointestinal: Denies abdominal pain, diarrhea, nausea or vomiting Genitourinary Genitourinary ED: Denies dysuria Musculoskeletal Musculoskeletal: Denies myalgias or neck pain Integumentary Denies rash Neurologic Neurologic: Denies headache(s) Hematologic/Lymphatic Hematologic/Lymphatic: Denies easy bleeding or easy bruising EXAM Physical Exam Const Vital Signs: 08/10/23 02:39 08/10/23 02:42 Temperature 97 F L 97 F L Temperature Source Temporal Temporal Pulse Rate 76 76 Respiratory Rate 16 16 Blood Pressure 126/85 H 126/85 H Blood Pressure Mean 98 98 Pulse Ox 98 98 Oxygen Delivery Method Room Air Room Air Positive well nourished, well developed and obese General Appearance ED: well developed; Negative for pallor Nutritional Appearance: obese HEENT HEENT Narrative: Right canal and tympanic membrane appear normal. No external right ear swelling. No pain with external manipulation of the right ear Left ear canal is edematous and erythematous consistent with otitis externa. The left tympanic membrane is also erythematous concerning for infection. There is no external left ear swelling or redness noted. There is pain with external manipulation of the left ear however No pain with palpation of either mastoid region Eyes PERRL and EOMs intact bilaterally Neck supple Neck Narrative: No nuchal rigidity or meningeal signs noted Resp normal respiratory effort and clear to auscultation bilaterally Cardio regular rate and regular rhythm Extremity normal to inspection Neuro oriented x3, CN's II-XII intact bilaterally and no sensory deficits noted Sensorium / Orientation: alert Motor Exam: strength 5/5 throughout Psych mental status grossly normal Skin no rashes or lesions noted and no wounds General Skin Exam: Negative for jaundice or pallor MDM MDM MDM Narrative Medical decision making narrative: Patient arrived to the ER with stable vitals and reported sudden onset of left ear pain without trauma or discharge. Differential diagnosis is for otitis media versus eustachian tube dysfunction versus otitis externa versus mastoiditis versus malignant otitis externa. The patient does not have pain over either mastoid going against this diagnosis. There is no physical exam findings to suggest malignant otitis externa. The patient's left ear canal is edematous and erythematous consistent with otitis externa and the redness does track across the tympanic membrane. It is unsure if the changes are secondary to diffuse otitis externa or also the development of otitis media. Therefore I feel the patient safest option is treatment with both oral antibiotics as well as antibiotic eardrops. The canal is edematous but not closed off or touching so therefore there is no need for an ear wick. As vitals are stable and patient is not immunosuppressed there is no need for laboratory or imaging studies and the be discharged home with symptomatic medication History & Record Review Discussion w/independent historian: Patient Discharge Plan Triage Chief Complaint: Ear Problem ED Provider: Rome Gibbs Dx/Rx/DC Orders Clinical Impression: Left otitis externa, Asthma, Pulmonary nodules/lesions, multiple Instructions: ED External Ear Infection (Adult) Prescriptions: New amoxicillin-pot clavulanate 875-125 mg tablet 1 tab PO BID 10 Days Qty: 20 0RF mnjzhddy-beuwcliud-JA 3.5-10,000-1 mg/mL-unit/mL-% drops,suspension 4 drp LEFT EAR 4X/DAY 10 Days Qty: 10 0RF oxycodone-acetaminophen [Percocet] 5-325 mg tablet 1 tab PO Q6H PRN (Reason: pain) 3 Days Qty: 12 0RF Primary Care Provider: Care Physician,No Primary Referrals: Toney Mcwilliams MD [Med Staff - Active Staff] - Care Physician,No Primary [Primary Care Provider] - Activity Restrictions/Additional Instructions: Please use both the oral antibiotic as well as the antibiotic eardrops to resolve your infection. This will typically take 2 to 3 days before symptoms improve. Follow-up with your family doctor for repeat evaluation and return to the ER should you have any further concerns Print Language: Central African Disposition Disposition: Home, Self Care Discharge Date/Time: 08/10/23 03:23
[2023-08-10] MEDS: oxyCODONE 5 MG Tablet PO (03:20)
[2023-08-10] MEDS: Neomycin/Polymyxin/Dexameth 5ML OPTH.BTL 4 DRP OTIC (03:20)
[2023-08-10] MEDS: Amox/Clavulanate 875 MG Tablet PO (03:21)
== END 2023-08-10 03:23 | disposition home or self-care (01) ==
LOC: ED 03:11
PROVIDERS: Emergency Provider Emergency Medicine; Visit Provider Emergency Medicine
DX: H60.92 Unspecified otitis externa, left ear (principal); J45.909 Unspecified asthma, uncomplicated; R91.8 Other nonspecific abnormal finding of lung field; Z87.891 Personal history of nicotine dependence
CPT/HCPCS: 99283

== ENCOUNTER 2024-03-05 06:18 | Emergency (ER) | payer BC, SELFPAY ==
[2024-03-05 06:20] VITALS: BP 136/75; PULSE 102; RESP 18; TEMP 37.3; O2SAT 99; BMI 38.2
[2024-03-05] MEDS: Acetaminophen 500 MG Tablet 1000 MG PO (06:34)
[2024-03-05] MEDS: dexAMETHasone 10 MG/ML Vial PO.IVFORM (06:34)
--- NOTE | 2024-03-05 06:35 | RAD_ITS ---
EXAM: XR CHEST, 2 VIEWS CLINICAL INDICATION: cough TECHNIQUE: Frontal and lateral views of the chest. COMPARISON: Single view chest 09/29/2021 FINDINGS: LUNGS AND PLEURAL SPACES: Unremarkable. No consolidation or edema. No pneumothorax. No effusion. HEART: Unremarkable. Cardiac silhouette not enlarged. MEDIASTINUM: Central airways and mediastinal contour are unremarkable. BONES/JOINTS: Unremarkable. No acute fracture. SOFT TISSUES: Unremarkable. RAD/Chest PA and Lateral IMPRESSION: No radiographic evidence of acute cardiopulmonary disease. Electronically Signed: Nish Acosta MD at 7:04 EST ,
--- NOTE | 2024-03-05 06:56 | EX.ED.DYSGE1 ---
HPI History of Present Illness Chief Complaint: Cold Sx Informant: patient and EMS Narrative Narrative: Patient is a 23-year-old male with past medical history of asthma. 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 He states last night he began to feel fatigued with muscle aches and pains. He states he took nighttime medication was able to sleep but awoke this morning with increased pain as well as increased congestion and cough. Secondary to this EMS was called. EMS reports when they arrived the patient is awake and alert but had 101 fever. With concern for developing infection he presents for evaluation [facility] Medical History Costochondritis Opiate addiction Asthma Home Medications ?Medication ?Instructions ?Recorded ?Last Taken ?Type codeine 10 mg-guaifenesin 100 mg/5 10 ml PO 4X/DAY PRN cough 7 days 03/05/24 Unknown Rx mL oral liquid (Guaifenesin AC) #280 mL prednisone 20 mg tablet 40 mg (2 x 20 mg) PO DAILY 5 days 03/05/24 Unknown Rx #10 tabs Allergy/AdvReac Type Severity Reaction Status Date / Time ondansetron (From Zofran) AdvReac Other Verified 03/05/24 06:20 Family History no significant family his Surgical History History of tonsillectomy Social History Smoking Status: Current every day smoker tobacco type: cigarettes ROS ROS ED Constitutional Constitutional ED: Reports chills and fever(s) Eyes Eyes: Denies blurry vision or change in vision ENT ENT ED: Reports rhinorrhea and sore throat Cardiovascular Cardiovascular: Denies chest pain Respiratory/Chest Respiratory/Chest: Reports cough and dyspnea Gastrointestinal Gastrointestinal: Reports nausea; Denies abdominal pain, diarrhea or vomiting Genitourinary Genitourinary ED: Denies dysuria Musculoskeletal Musculoskeletal: Reports myalgias Integumentary Denies rash Neurologic Neurologic: Reports headache(s) and weakness Hematologic/Lymphatic Hematologic/Lymphatic: Denies easy bleeding or easy bruising Allergic/Immunologic Allergic/Immunologic ED: Denies mouth swelling or tongue swelling EXAM Physical Exam Const Vital Signs: 03/05/24 06:20 03/05/24 06:22 Temperature 99.1 F Temperature Source Oral Pulse Rate 102 H Respiratory Rate 18 Respiratory Effort Normal Respiratory Pattern Normal Blood Pressure 136/75 H Blood Pressure Mean 95 Pulse Ox 99 Oxygen Delivery Method Room Air Positive well nourished, well developed and obese General Appearance ED: well developed; Negative for pallor Nutritional Appearance: obese HEENT HEENT Narrative: Nasal mucosa is hyperemic and boggy Posterior pharynx displays cobblestoning consistent with sinus drainage without airway edema or compromise; no secondary findings in the posterior pharynx to suggest infection Bilateral TMs are retracted but show no secondary changes to suggest infection Eyes PERRL and EOMs intact bilaterally General Eye ED: Negative for scleral icterus Neck supple Neck Narrative: No nuchal rigidity or meningeal signs Chest Wall palpation of chest normal Resp normal respiratory effort Resp Narrative: Breath sounds are diminished throughout with faint expiratory wheeze in the bilateral bases consistent with history of asthma but no signs of respiratory distress Cardio regular rhythm Rate: tachycardic and other Other Details: Slightly tachycardic rate with regular rhythm Radial and carotid pulses are equal and symmetric No murmurs rubs or gallops GI non-tender, non-distended and no masses GI Narrative: Soft nontender nondistended with slightly hyperactive bowel sounds. No voluntary guarding or rigidity or pulsatile mass. Auscultation: hyperactive bowel sounds Palpation: soft Extremity normal to inspection Extremity Narrative: No asymmetric edema no pitting edema negative Homans' sign bilaterally Neuro oriented x3, CN's II-XII intact bilaterally and no sensory deficits noted Sensorium / Orientation: alert Psych Mood & Affect: anxious Skin no rashes or lesions noted, no wounds and skin turgor normal General Skin Exam: Negative for jaundice or pallor MDM MDM MDM Narrative Medical decision making narrative: Patient arrived to the ER in no acute respiratory distress satting 98 to 100% on room air. Squad reported temperature of 101 but upon arrival our evaluation is 99.1. The patient reports multiple sick contacts and his constellation of symptoms are consistent with a viral infection such as COVID versus influenza versus RSV. He may also have developed pneumonia. Physical exam does not suggest meningeal infection and he does not have signs of dehydration. Therefore this time I do not feel need for workup other than chest x-ray to assess for pneumonia and viral swab. Chest x-ray revealed no acute infiltrate pneumothorax or pleural effusion which is consistent with his normal room air pulse ox and normal work of breathing. He was given Tylenol for his myalgias and low-grade fever as well as Decadron secondary to the inflammatory process. His viral swab was positive for influenza A which does correlate with his history and exam. As he does not have physical exam findings for sepsis he is not hypoxic or in respiratory distress there is no need for further workup or admission and he is otherwise safe for discharge History & Record Review Discussion w/independent historian: EMS personnel and Patient Radiography Diagnostic Testing: Clinical Impression(s) from Imaging Studies Chest X-Ray 03/05/24 06:35 IMPRESSION: No radiographic evidence of acute cardiopulmonary disease. Electronically Signed: Nish Acosta MD at 7:04 EST , 2 view chest x-ray as interpreted by the emergency medicine physician reveals no acute infiltrate pneumothorax pleural effusion Discharge Plan Triage Chief Complaint: Cold Sx Other Complaint: Fever ED Provider: Rome Gibbs Dx/Rx/DC Orders Clinical Impression: Influenza A, Asthma Instructions: ED Fever Control (Adult), ED Influenza (Adult) Prescriptions: New prednisone 20 mg tablet 40 mg PO DAILY 5 Days Qty: 10 0RF codeine-guaifenesin [Guaifenesin AC] 10-100 mg/5 mL liquid 10 ml PO 4X/DAY PRN (Reason: cough) 7 Days Qty: 280 0RF Stand Alone Forms: ED Work / School Excuse Primary Care Provider: Care Physician,No Primary Referrals: Toney Mcwilliams MD [Med Staff - Active Staff] - Care Physician,No Primary [Primary Care Provider] - Activity Restrictions/Additional Instructions: You tested positive for influenza A. This is a viral infection which will last anywhere from 5 to 14 days with the average being 7 days. You may have a fever the entire time you have this virus. Continue Tylenol and/or Motrin for fever control and keep yourself well-hydrated. If you have any further concerns or worsening of symptoms please return to the ER for repeat evaluation Print Language: Tunisian Disposition Disposition: Home, Self Care
[2024-03-05] MEDS: guaiFENesin/Codeine 5 ML UDC 10 ML PO (07:12)
[2024-03-05 07:43] VITALS: BP 148/62; PULSE 102; RESP 16; TEMP 37.6; O2SAT 94
== END 2024-03-05 07:45 | disposition home or self-care (01) ==
PROVIDERS: Emergency Provider Emergency Medicine; Visit Provider Emergency Medicine
DX: J10.1 Influenza due to other identified influenza virus with other respiratory manifestations (principal); J45.909 Unspecified asthma, uncomplicated; F17.210 Nicotine dependence, cigarettes, uncomplicated
CPT/HCPCS: 71046; 87631; 99285

== ENCOUNTER 2024-03-22 21:13 | Emergency (ER) | payer OTHER, BC, SELFPAY ==
[2024-03-22 21:13] VITALS: BP 134/91; PULSE 108; RESP 17; TEMP 36.3; O2SAT 98; BMI 35.7
--- NOTE | 2024-03-22 21:19 | ED.RN ---
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 requesting drug screen, educated pt on need to go to the now clinic in the AM
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
[2024-03-22 22:29] VITALS: BP 138/75; PULSE 82; RESP 18; TEMP 36.3; O2SAT 97
== END 2024-03-22 22:35 | disposition home or self-care (01) ==
PROVIDERS: Emergency Provider Surgery; Visit Provider Surgery
DX: Z04.1 Encounter for examination and observation following transport accident (principal); V47.5XXA Car driver injured in collision with fixed or stationary object in traffic accident, initial encounter; Y92.410 Unspecified street and highway as the place of occurrence of the external cause; Y99.0 Civilian activity done for income or pay; J45.909 Unspecified asthma, uncomplicated; F17.210 Nicotine dependence, cigarettes, uncomplicated
CPT/HCPCS: 99282

== ENCOUNTER 2024-12-02 16:35 | Emergency (ER) | payer SELFPAY ==
[2024-12-02 16:35] VITALS: BP 144/83; PULSE 80; RESP 16; TEMP 37.2; O2SAT 99; BMI 26.6
[2024-12-02 18:39] VITALS: BP 114/60; PULSE 89; RESP 17; TEMP 37; O2SAT 97
--- OUTSIDE RECORDS SUMMARY | 2024-12-02 18:47 | XMS RPT_ITS | CCD ---
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 YES 6. Age Age over 50 yr old? NO 7. Neck circumference Neck circumference greater than 40 cm? YES 51 cm 8. Gender Gender male? YES * Neck circumference is measured by staff High risk of MARIA ANTONIA: answering yes to three or more items Low risk of MARIA ANTONIA: answering yes to less than three items Hoarseness for several years. Notes decreased appetite and nausea for 3-4 days at a time then resolves. This occurs once or twice a month. Present for years. States not related to anything, helped with drinking fluids like Ensure. Notes helped with reglan in the past. Notes increased with exertion. No EtoH or caffeine related reported. Heartburn: occasional Reflux: no Abdominal pain: no Nausea and Vomiting: two times per week Diarrhea: none reported Constipation: none reported BRBPR: none reported Black tarry: none reported Review of Systems Constitutional: Positive for fatigue. Respiratory: Positive for cough and shortness of breath. Gastrointestinal: Positive for nausea and vomiting. Musculoskeletal: Positive for arthralgias. Objective BP 129/75 Pulse 84 Resp 16 Ht 184.2 cm (6' 0.5) Wt 135.8 kg (299 lb 6.2 oz) SpO2 96% BMI 40.05 kg/m? Physical Exam Vitals and nursing note reviewed. Constitutional: Appearance: Normal appearance. HENT: Head: Normocephalic and atraumatic. Eyes: Conjunctiva/sclera: Conjunctivae normal. Neck: Thyroid: No thyromegaly. Vascular: Normal carotid pulses. No JVD. Cardiovascular: Rate and Rhythm: Normal rate and regular rhythm. Pulses: Carotid pulses are 2+ on the right side and 2+ on the left side. Radial pulses are 2+ on the right side and 2+ on the left side. Heart sounds: Normal heart sounds. Pulmonary: Effort: Pulmonary effort is normal. Breath sounds: Normal breath sounds. Chest: Chest wall: Tenderness present. No crepitus. Comments: TTP lower rib order Abdominal: General: Bowel sounds are normal. There is no distension. Palpations: Abdomen is soft. There is no mass. Tenderness: There is no abdominal tenderness. There is no guarding or rebound. Musculoskeletal: Right lower leg: No edema. Left lower leg: No edema. Skin: General: Skin is warm and dry. Neurological: General: No focal deficit present. Mental Status: He is alert and oriented to person, place, and time. ALLERGIES Allergen Reactions Cats Intolerance Ondansetron Intolerance, Other: See Comments heart palpitations Medication triamcinolone acetonide (KENALOG) 0.1 % cream Apply 1 application to affected area three times daily. Apply to affected area .For up to two weeks until clear. May repeat as necessary metoclopramide HCl (REGLAN) 10 mg tablet Take 1 tablet by mouth before meals and at bedtime. Take as needed for nausea and v (more content not included)... [facility] (INTMWS[facility] MOIRA HUMMEL ([id number]) 2000 M Date Time Provider Department 12/12/23 EVONNE WASHINGTON INTWS During your visit today, we recorded the following information about you: Marie Olivares LPN 12/12/2023 12:26 PM Signed Pt called in to get an apt in the office. Pt has had COVID in the past and has chronic symptoms persisting for over a year or so. SX: dull constant pain in chest rib area. Takes a deep breath and gets sharp pain, chronic cough, phlegm dark in color, frequent respiratory infections 9 to 10 in the last year to year and half, chronic fatigue, significant loss of appetite. Does not eat like he used to. Goes 3 to 5 days where he may drink a protein drink. May vomited of and on. Gets general weakness comes an goes. Pt scheduled for apt 12-13-23 with provider/team. ALPESH Haley Terri, APRN.[employer] 12/12/2023 2:25 PM Signed Has OV tomorrow. Allergies As of Date: 12/12/2023 Noted Allergy Reaction CATS 10/08/2008 5 - Intolerance ONDANSETRON 09/29/2021 5 - Intolerance 14 - Other: See Comments Comments: heart palpitations Date Reviewed: 10/31/2023 Reviewed by: Camila Dumont LPN - Fully Assessed Reason for Visit: Future Appointment [256] Prescriptions as of 12/12/2023 - albuterol HFA (PROVENTIL HFA, VENTOLIN HFA) 90 mcg/actuation inhaler Inhale 2 Puffs as instructed every 4 hours as needed for wheezing/shortness of breath. - venlafaxine (EFFEXOR) 50 mg tablet Take 0.5 tablets by mouth daily with breakfast for 7 days, THEN 1 tablet daily with breakfast. - sildenafil (REVATIO) 20 mg tablet Take 40 mg by mouth as needed. - triamcinolone acetonide (KENALOG) 0.1 % cream Apply 1 application to affected area three times daily. Apply to affected area .For up to two weeks until clear. May repeat as necessary Meds Comments as of 06/29/2016: 06/29/16 Melatonin daily. Nikki Kraus RN Problem List As Of Date 12/12/2023 Noted Resolved CONSTIPATION NOS [K59.00] 08/23/2005 Asthma with acute exacerbation [J45.901] 08/23/2005 11/11/2020 Other atopic dermatitis and related conditions *09/10/2011 Depression [F32.A] 07/04/2013 Pneumonia due to COVID-19 virus [U07.1, J12.82] 11/08/2020 Acute hypoxemic respiratory failure (HCC) [J96.*11/08/2020 11/11/2020 Transaminitis [R74.01] 11/08/2020 11/11/2020 COVID-19 [U07.1] 11/08/2020 Encounter Status:Closed by JOEY BRYANT on 12/12/23 [facility] 11-01-2023 [facility] Telephone (UCTR) MOIRA HUMMEL ([id number]) 2000 Date Time Provider Department 11/01/23 [facility] During your visit today, we recorded the following information about you: Courtney Cedeño APRN.[facility] 11/01/2023 7:07 AM Signed You tested negative for COVID, Influenza, and RSV. Please contact us if your symptoms are worsening or not improving. Please advise Concetta Mann MA 11/01/2023 7:57 AM Signed Left VM instructing patient to return call to receive results. RAFIQ Espinosa M Robin, RN 11/01/2023 11:59 AM Signed Pt returned call and given provider's message below with verbalized understanding. Allergies As of Date: 11/01/2023 Noted Allergy Reaction CATS 10/08/2008 5 - Intolerance ONDANSETRON 09/29/2021 5 - Intolerance 14 - Other: See Comments Comments: heart palpitations Date Reviewed: 10/31/2023 Reviewed by: Camila Dumont LPN - Fully Assessed Reason for Visit: Results [95] Prescriptions as of 11/01/2023 - albuterol HFA (PROVENTIL HFA, VENTOLIN HFA) 90 mcg/actuation inhaler Inhale 2 Puffs as instructed every 4 hours as needed for wheezing/shortness of breath. - predniSONE (DELTASONE) 10 mg tablet Take 5 tablets by mouth once daily for 1 day, THEN 4 tablets once daily for 1 day, THEN 3 tablets once daily for 1 day, THEN 2 tablets once daily for 1 day, THEN 1 tablet once daily for 1 day. - venlafaxine (EFFEXOR) 50 mg tablet Take 0.5 tablets by mouth daily with breakfast for 7 days, THEN 1 tablet daily with breakfast. - sildenafil (REVATIO) 20 mg tablet Take 40 mg by mouth as needed. - triamcinolone acetonide (KENALOG) 0.1 % cream Apply 1 application to affected area three times daily. Apply to affected area .For up to two weeks until clear. May repeat as necessary Meds Comments as of 06/29/2016: 06/29/16 Melatonin daily. Nikki Kraus RN Problem List As Of Date 11/01/2023 Noted Resolved CONSTIPATION NOS [K59.00] 08/23/2005 Asthma with acute exacerbation [J45.901] 08/23/2005 11/11/2020 Other atopic dermatitis and related conditions *09/10/2011 Depression [F32.A] 07/04/2013 Pneumonia due to COVID-19 virus [U07.1, J12.82] 11/08/2020 Acute hypoxemic respiratory failure (HCC) [J96.*11/08/2020 11/11/2020 Transaminitis [R74.01] 11/08/2020 11/11/2020 COVID-19 [U07.1] 11/08/2020 Encounter Status:Closed by COURTNEY CEDEÑO on 11/01/23 [facility] CNOVanastasi[facility] 10-31-2023 CNOV Office Visit (WSTR ) MOIRA HUMMEL ([id number]) 2000 Date Time Provider Department 10/31/23 1:45 PM [facility] During your visit today, we recorded the following information about you: Temperature Pulse Respiration Blood pressure 98.1 degrees 74/minute 20/minute 111/77 Weight 132 kg Uriel Cam MD 10/31/2023 1:19 PM Signed Patient presents with: Cough: Chest congestion, headache, body aches, SOB, chest tightness x 1 day HPI: Feeling sick since last night. Exposed to sick coworkers. Positive symptoms: Cough, Shortness of breath, Chest tightness, Body Aches, Headache, Nasal Congestion, Rhinorrhea, Chills, Malaise, Diarrhea, Negative symptoms: Vomiting, OTC: none MEDICATIONS: Current Outpatient Medications Medication Sig triamcinolone acetonide (KENALOG) 0.1 % cream Apply 1 application to affected area three times daily. Apply to affected area .For up to two weeks until clear. May repeat as necessary venlafaxine (EFFEXOR) 50 mg tablet Take 0.5 tablets by mouth daily with breakfast for 7 days, THEN 1 tablet daily with breakfast. sildenafil (REVATIO) 20 mg tablet Take 40 mg by mouth as needed. (Patient not taking: Reported on 10/31/2023) No current facility-administered medications for this visit. ALLERGIES: ALLERGIES Allergen Reactions Cats Intolerance Enviromental [Other] Ondansetron Intolerance, Other: See Comments heart palpitations VITALS: BP 111/77 Pulse 74 Temp 36.7 ?C (98.1 ?F) Resp 20 Wt 132 kg (291 lb 0.1 oz) SpO2 96% BMI 38.93 kg/m? PHYSICAL EXAM: GEN: mildly ill appearing HEENT: PERRL, EOMI, conjunctiva clear Ears: canals clear. TMs without erythema, bulge, or effusion Sinuses: non-tender frontal sinus, non-tender maxillary sinuses Throat: moist mucous membranes, mild erythema, no exudate Neck: supple, no thyromegaly, no lymphadenopathy HEART: regular rate and rhythm, no murmurs LUNGS: bilateral wheezes and diminished air exchange, no increased WOB Latest Ref Rng 01/26/2022 eGFR >=60 mL/min/1.73m? 121 ASSESSMENT/PLAN: 1. URI, acute - ICD9: 465.9, ICD10: J06.9 (primary diagnosis) - Discussed viral etiology and rationale for treatment. - Symptomatic treatment with prn analgesia - Supportive care with fluids and rest - COVID AND INFLUENZA A/B AND RSV PCR, ROUTINE 2. Wheezing - ICD9: 786.07, ICD10: R06.2 - ALBUTEROL SULFATE HFA 90 MCG/ACTUATION AEROSOL INHALER - PREDNISONE 10 MG TABLET - COVID AND INFLUENZA A/B AND RSV PCR, ROUTINE Uriel Cam MD Allergies As of Date: 10/31/2023 Noted Allergy Reaction CATS 10/08/2008 5 - Intolerance ONDANSETRON 09/29/2021 5 - Intolerance 14 - Other: See Comments Comments: heart palpitations Date Reviewed: 10/31/2023 Reviewed by: Camila Dumont LPN - Fully Assessed Reason for Visit: Cough [28] Cmt: Chest congestion, headache, body aches, SOB, chest tightness x 1 day Primary Visit Diagnosis:URI, acute [J06.9] Other Visit Diagnosis:Wheezing [R06.2] Order(s):albuterol HFA (PROVENTIL HFA, VENTOLIN HFA) 90 mcg/actuation inhalerInhale 2 Puffs as instructed every 4 hours as needed for wheezing/shortness of breath.Disp: 1 EachRfl: 0 predniSONE (DELTASONE) 10 mg tabletTake 5 tablets by mouth once daily for 1 day, THEN 4 tablets once daily for 1 day, THEN 3 tablets once daily for 1 day, THEN 2 tablets once daily for 1 day, THEN 1 tablet once daily for 1 day.Disp: 15 tabletRfl: 0 COVID AND INFLUENZA A/B AND RSV PCR, ROUTINE [SQCVFLRS] Order #: [id number]. #:[id number] Prescriptions as of 10/31/2023 - albuterol HFA (PROVENTIL HFA, VENTOLIN HFA) 90 mcg/actuation inhaler Inhale 2 Puffs as instructed every 4 hours as needed for wheezing/shortness of breath. - predniSONE (DELTASONE) 10 mg tablet Take 5 tablets by mouth once daily for 1 day, THEN 4 tablets once daily for 1 day, THEN 3 tablets once daily for 1 day, THEN 2 tablets once daily for 1 day, THEN 1 tablet once daily for 1 day. - venlafaxine (EFFEXOR) 50 mg tablet Take 0.5 tablets by mouth daily with breakfast for 7 days, THEN 1 tablet daily with breakfast. - sildenafil (REVATIO) 20 mg tablet Take 40 mg by mouth as needed. - triamcinolone acetonide (KENALOG) 0.1 % cream Apply 1 application to affected area three times daily. Apply to affected area .For up to two weeks until clear. May repeat as necessary Meds Comments as of 06/29/2016: 06/29/16 Melatonin daily. Nikki Kraus RN Problem List As Of Date 10/31/2023 Noted Resolved CONSTIPATION NOS [K59.00] 08/23/2005 Asthma with acute exacerbation [J45.901] 08/23/2005 11/11/2020 Other atopic dermatitis and related conditions *09/10/2011 Depression [F32.A] 07/04/2013 Pneumonia due to COVID-19 virus [U07.1, J12.82] 11/08/2020 Acute hypoxemic respiratory failure (HCC) [J96.*11/08/2020 11/11/2020 Transaminitis [R74.01] 11/08/2020 11/11/2020 (more content not included)... Normal [facility] COVID AND INFLUENZA A/B AND RSV PCR, ROUTINEon 10-31-2023 SARS-CoV-2 (COVID-19) RNA KALEY+probe Ql (Unsp spec) SARS-COV-2 (AGENT OF COVID-19) RNA: Not detected INFLUENZA A RNA: Not detected INFLUENZA B RNA: Not detected RESPIRATORY SYNCYTIAL VIRUS (RSV) RNA: Not detected Normal [facility] Comment on above: Performed By: #### C VFLRS #### [facility] CLIA [id number] [address] [place] [address] [place] Emergency Department Summary on 08-10-2023 Emergency Department Summary [facility] Medical Records Department [address] [place] [id number] Emergency Department Summary 08/10/23 MR#: [id number] Acct: [id number] Name: MOIRA HUMMEL Rep #: [id number] : 2000 23 From: Rome Gibbs DO PCP: Care Physician,No Primary Status:DEP ER Location: ED HPI History of Present Illness Chief Complaint: Ear Problem Informant: patient Narrative Narrative: Patient is a 23-year-old male with past medical history of asthma and pulmonary nodules. He states he went to bed feeling normally and then awoke from sleep roughly 1 hour prior to arrival with a left ear pain. He denies any trauma or discharge from the ear. He denies any congestion cough sore throat or known sick contact. He does state that he went swimming roughly 7 to 10 days ago. He denies any right ear pain or discharge but with the pain waking him from sleep he has concern for infection and comes in for evaluation [facility] Medical History (Updated 08/10/23 @ 03:[address] Rome Gibbs, DO) Costochondritis Opiate addiction Asthma Home Medications ???Medication ???Instructions ???Recorded ???Last Taken ???Type amoxicillin 875 mg-potassium 1 tab PO BID 10 days #20 tabs 08/10/23 Unknown Rx clavulanate 125 mg tablet cajcaqkj-gnqexhhrf-owl rocort 3.5 4 drp LEFT EAR 4X/DAY 10 days #10 08/10/23 Unknown Rx mg-10,000 unit/mL-1 % ear mL drops,susp oxycodone-acetaminophe n 5 mg-325 1 tab PO Q6H PRN pain 3 days #12 08/10/23 Unknown Rx mg tablet (Percocet) tabs Allergy/AdvReac Type Severity Reaction Status Date / Time ondansetron (From Zofran) AdvReac Other Verified 03/26/22 16:57 Surgical History (Updated 03/26/22 @ 17:07 by Rhonda Jordan) History of tonsillectomy Social History Smoking Status: Former smoker ROS ROS ED Constitutional Constitutional ED: Denies chills or fever(s) Eyes Eyes: Denies change in vision ENT ENT ED: Reports ear pain left; Denies rhinorrhea or sore throat Cardiovascular Cardiovascular: Denies chest pain Respiratory/Chest Respiratory/Chest: Denies cough or dyspnea Gastrointestinal Gastrointestinal: Denies abdominal pain, diarrhea, nausea or vomiting Genitourinary Genitourinary ED: Denies dysuria Musculoskeletal Musculoskeletal: Denies myalgias or neck pain Integumentary Denies rash Neurologic Neurologic: Denies headache(s) Hematologic/Lymphatic Hematologic/Lymphatic: Denies easy bleeding or easy bruising EXAM Physical Exam Const Vital Signs: 08/10/23 02:39 08/10/23 02:42 Temperature 97 F L 97 F L Temperature Source Temporal Temporal Pulse Rate 76 76 Respiratory Rate 16 16 Blood Pressure 126/85 H 126/85 H Blood Pressure Mean 98 98 Pulse Ox 98 98 Oxygen Delivery Method Room Air Room Air Positive well nourished, well developed and obese General Appearance ED: well developed; Negative for pallor Nutritional Appearance: obese HEENT HEENT Narrative: Right canal and tympanic membrane appear normal. No external right ear swelling. No pain with external manipulation of the right ear Left ear canal is edematous and erythematous consistent with otitis externa. The left tympanic membrane is also erythematous concerning for infection. There is no external left ear swelling or redness noted. There is pain with external manipulation of the left ear however No pain with palpation of either mastoid region Eyes PERRL and EOMs intact bilaterally Neck supple Neck Narrative: No nuchal rigidity or meningeal signs noted Resp normal respiratory effort and clear to auscultation bilaterally Cardio regular rate and regular rhythm Extremity normal to inspection Neuro oriented x3, CN's II-XII intact bilaterally and no sensory deficits noted Sensorium / Orientation: alert Motor Exam: strength 5/5 throughout Psych mental status grossly normal Skin no rashes or lesions noted and no wounds General Skin Exam: Negative for jaundice or pallor MDM MDM MDM Narrative Medical decision making narrative: Patient arrived to the ER with stable vitals and reported sudden onset of left ear pain without trauma or discharge. Differential diagnosis is for otitis media versus eustachian tube dysfunction versus otitis externa versus mastoiditis versus malignant otitis externa. The patient does not have pain over either mastoid going against this diagnosis. There is no physical exam findings to suggest malignant otitis externa. The patient's left ear canal is edematous and erythematous consistent with otitis externa and the redness does track across the tympanic membrane. It is unsure if the changes are secondary to diffuse otitis externa or also the development of otitis media. Therefore I feel the patient safest (more content not included)... Normal [facility] - Microbiology an d Antimicrobial susceptibilityon 09-29-2021 SARS-CoV-2 (COVID-19) RNA KALEY+probe Ql (Unsp spec) Not detected Not Detect [facility] Work Phone: Comment on above: Normal Reference Ran ge: Not DetectedMethod:(RT-PCR) real-time reverse transcriptase PCRLuminex MARVIN Instrument*The Food and Drug Administration (FDA) has issued an Emergency Use Authorization (EAU) for the MARVIN SARS-CoV-2 Assay for the rapid detection of the virus that causes COVID-19. This test has been validated, but the FDAs independent review of this validation is pending.*Negative results do not preclude infection and should not be used as the sole basis for treatment or patient management. Optimum specimen types and timing for peak viral levels during infections caused by SARS-CoV-2 have not been determined. Collection of multiple specimens from the same patient may be necessary to detect the virus. The possibility of a false negative result should be considered if the patient has clinical presentation or has had recent exposure. No Panel Informationon 05-22 Influenza Types A,B Direct FA (MELANIA) [facility] Work Phone: Basic Metabolic Panlon 11-11 Anion gap [Moles/Vol] 8 mmol/L Low 9-18 [facility] Comment on above: Performed By: #### B MP, CBC ####[facility] [address] [place], [place] [id number] Calcium [Mass/Vol] 8.8 mg/dL Normal 8.5-10.2 [facility] Comment on above: Performed By: #### B MP, CBC ####[facility] Cqhkfczzws8452 [address] Chloride [Moles/Vol] 103 mmol/L Normal 97-105 [facility] Comment on above: Performed By: #### B MP, CBC ####[facility] [address] [place] [phone] CO2 [Moles/Vol] 29 mmol/L Normal 22-30 [facility] Comment on above: Performed By: #### B MP, CBC ####[facility] [address] [place] [phone] Creatinine [Mass/Vol] 0.78 mg/dL Normal 0.73-1.22 [facility] Comment on above: Performed By: #### B MP, CBC ####[facility] X[address]rrc0838 [phone] eGFR- Amer. >60 Normal [facility] Comment on above: Performed By: #### B MP, CBC ####[facility] [address] eGFR-All Other Races >60 Normal [facility] Comment on above: Result Comment: eGFR (Estimated GFR) Units of measure: mL/min/1.73 meters squared eGFR is derived from the reexpressed MDRD Study equation using the following parameters: serum creatinine, age, gender and race. The creatinine assay has been calibrated to be traceable to IDMS. An eGFR <60 mL/min/1.73m2 for >3 months is consistent with chronic kidney disease. Refer to KDOQI guidelines for clinical interpretation. In patients with unstable renal function, e.g. those with acute kidney injury, the eGFR may not accurately reflect actual GFR. Performed By: #### B MP, CBC ####[facility] [address] [place] [address] Glucose [Mass/Vol] 101 mg/dL High 74-99 [facility] Comment on above: Result Comment: The [place] Diabetes Association (ADA) provides guidance for cutoff values for fasting glucose and random glucose. The ADA defines fasting as no caloric intake for at least 8 hours. Fasting plasma glucose results between 100 to 125 mg/dL indicate increased risk for diabetes (prediabetes). Fasting plasma glucose results greater than or equal to 126 mg/dL meet the criteria for diagnosis of diabetes. In the absence of unequivocal hyperglycemia, results should be confirmed by repeat testing. In a patient with classic symptoms of hyperglycemia or hyperglycemic crisis, random plasma glucose results greater than or equal to 200 mg/dL meet the criteria for diagnosis of diabetes. Reference: Standards of Medical Care in Diabetes 2016, [place] Diabetes Association. Diabetes Care. 2016.39(Suppl 1). Performed By: #### B MP, CBC ####[facility] [address]75[address] Potassium [Moles/Vol] 3.9 mmol/L Normal 3.7-5.1 [facility] Comment on above: Performed By: #### B MP, CBC ####[facility] [address] [place] [phone] Sodium [Moles/Vol] 140 mmol/L Normal 136-144 [facility] Comment on above: Performed By: #### B MP, CBC ####[facility] [address] [place] [address] Urea nitrogen [Mass/Vol] 14 mg/dL Normal 9-24 [facility] Comment on above: Performed By: #### B MP, CBC ####[facility] [address] [place] [address] CBCon 11-11-2020 Absolute nRBC <0.01 Normal <0.01 [facility] Comment on above: Performed By: #### B MP, CBC ####[place] [address] Erythrocyte distribution width (RBC) [Ratio] 12.9 % Normal 11.5-15.0 [facility] Comment on above: Performed By: #### B MP, CBC ####[place] [address] Hematocrit (Bld) [Volume fraction] 43.2 % Normal 39.0-51.0 [facility] Comment on above: Performed By: #### B MP, CBC ####[place] [address] Hemoglobin (Bld) [Mass/Vol] 14.4 g/dL Normal 13.0-17.0 [facility] Comment on above: Performed By: #### B MP, CBC ####[place] [address] MCH 28.1 pG Normal 26.0-34.0 [facility] Comment on above: Performed By: #### B MP, CBC ####[facility] [address] [place] [address] MCHC (RBC) [Mass/Vol] 33.3 g/dL Normal 30.5-36.0 [facility] Comment on above: Performed By: #### B MP, CBC ####[place] [address] MCV (RBC) [Entitic vol] 84.2 fL Normal 80.0-100.0 [facility] Comment on above: Performed By: #### B MP, CBC ####[facility] [address] [place], [place] [phone] Platelet mean volume (Bld) [Entitic vol] 10.5 fL Normal 9.0-12.7 [facility] Comment on above: Performed By: #### B MP, CBC ####[facility] [facility] [address] [place] [phone] Platelets (Bld) [#/Vol] 306 10*3/uL Normal 150-400 [facility] Comment on above: Performed By: #### B MP, CBC ####[facility] [address]108 [address]5160 RBC (Bld) [#/Vol] 5.13 10*6/uL Normal 4.20-6.00 [facility] Comment on above: Performed By: #### B MP, CBC ####[facility] [address] [place], [place] [phone] WBC (Bld) [#/Vol] 7.68 10*3/uL Normal 3.70-11.00 [facility] Comment on above: Performed By: #### B MP, CBC ####[facility] [address] [place], [place] [address] CNDSon 11-11-2020 CNDS HNO ID: [id number] Author: Neftaly Matthews MD Service: General Internal Medicine Author Type: Physician Type: Discharge Summary Filed: 11/11/2020 8:43 PM Note Text: DISCHARGE SUMMARY PATIENT NAME: Moira Hummel ADMISSION DATE: 11/08/2020 DISCHARGE DATE: 11/11/2020 ATTENDING PHYSICIAN: Shannon Espino MD Code Status: Not on file Highest Readmission Risk Score: 15 The 30 day readmissions risk score is derived from an internally validated risk model which evaluates patient level characteristics, utilization history, medication orders and lab results up until the day of discharge. Patients with a score of 40 or above are considered highest risk for readmission. Specific patient level drivers will be listed at the bottom of the summary. CONSULTING TEAMS DURING HOSPITALIZATION: Infectious Disease: DR. INIGUEZ Treatment Team: Attending Provider: Shannon Espino MD Consulting: Iban Iniguez MD REASON FOR HOSPITALIZATION: covid pneumonia DIAGNOSIS: Principal Problem: Pneumonia due to COVID-19 virus POA: Yes Active Problems: COVID-19 POA: Yes Resolved Problems: Asthma with acute exacerbation POA: Yes Acute hypoxemic respiratory failure (HCC) POA: Yes Transaminitis POA: Yes HOSPITAL COURSE: Moira Hummel is a 20 year old male with a PMH significant for asthma and prior tobacco/vaping use (quit two weeks ago) who presented to the ED for evaluation of worsening shortness of breath in the context of known COVID-19 infection. Patient states that he had symptom onset and +PCR on 10/30. Symptoms initially consisted of fatigue, myalgias, DELACRUZ, fevers (Tmax 102,8F), chills, nausea, and productive cough of thick brown mucus which was occasionally blood tinged. He has had diminished appetite as well as some vomiting and diarrhea. His pulse ox was reportedly in the mid 80s at home while at rest. He was seen in the ED for mainly GI symptoms on 11/06/20 and given IVF and anti-emetics with improvement in his symptoms. He was given a prescription for reglan which did help slightly with the nausea. He breathing, however, has become more labored since that time which is why he presented again today. He does note some chest tightness/dicomfort with deep breathing and coughing. He has been using his albuterol inhaler at home without significant improvement. He is unvaccinated. He denies palpitations, abdominal pain, urinary symptoms, loss of taste/smell, LE pain or swelling or orthopnea. ? In the ED patient was hypoxic on RA and titrated to 4L NC. Lab work was notable for transaminitis otherwise mostly unremarkable. CTPE showed no evidence of PE but did note diffuse ground glass opacities consistent with multifocal pneumonia. He was given decadron and remdesivir while in the ED.? ? Because he notified us that his was leaving him tonight and wanted to serve him divorce papers tonight he wants to leave [place]. We decided after talking together that a safer plan of care was discharge home with prescription for oral decadron sent to his pharmacy at [facility] in [place] with close follow up with his PCP. ? Principal Problem: Pneumonia due to COVID-19 virus Acute hypoxemic respiratory failure (HCC) --Symptom onset and +PCR on 10/30/20 --CTPE with diffuse bilateral GGO consistent with multifocal pneumonia --decadron and remdesivir X 11/08- 05/16 --dced empiric rocephin/azithro per ID given low PCT /CT chest w/ viral pneUmonia- -- procal, inflammatory markers Q48 hours and atypicals neg /respcultures- nl clarence --Supportive care with prn albuterol, motrin, ppi, and anti-tussives --DVT ppx with SQ lovenox --Given history of asthma will need close monitoring of oxygen needs, consider ABG if oxygen requirements increase -on RA now --Given 1L NS in ED, f/by 75 cc/hr ov completed- Cautious prn iv hydration w/covid /enocurage po fluids --Prn lasix per volume /respiratory status and BP allows to get net neg balance ?? Transaminitis --Suspect secondary to viral infection /fluctuating /nl coags/ HC pattern --Patient also reports that he has been using tylenol 500 mg Q8H at home --tylenol level <5 --cautious nsaid/tylenol use ? Asthma, mild intermittent, with acute exacerbation? --Decreased air movement noted throughout all lung ang with some trace expiratory wheezes/creps in the mid and lower lung ang- likely w/ viral pneumonia - slowly improving --Continue decadron and prn albuterol as above Sepsis Ruled Out OPERATIONS DURING HOSPITALIZATION: None PROCEDURES DURING HOSPITALIZATION: No procedures performed Transitions of Care Critical Issues: MARADIAGA MEDICATION CHANGES: started on decadron instead of leaving AMA we discharged patient with Rx sent to pharmacy in [place] LABS AND PROCEDURES PENDING AT DISCHARGE: No pending results. Need to follow up with pcp PATIENT CONDITION AT DISCHARGE: Good DISCHARGE DISPOSITION: Home/Self Care Discharge Physi (more content not included)... Normal [facility] Basic Metabolic Panlon 11-10 Anion gap [Moles/Vol] 12 mmol/L Normal -18 [facility] Comment on above: Performed By: #### C BC, PT, HFP, BMP ####[facility] [address]wk8844 [phone] Calcium [Mass/Vol] 9.5 mg/dL Normal 8.5-10.2 [facility] Comment on above: Performed By: #### C BC, PT, HFP, BMP ####[facility] [address] [address] Chloride [Moles/Vol] 102 mmol/L Normal 97-105 [facility] Comment on above: Performed By: #### C BC, PT, HFP, BMP ####[facility] [address] [address] CO2 [Moles/Vol] 28 mmol/L Normal 22-30 [facility] Comment on above: Performed By: #### C BC, PT, HFP, BMP ####[facility] [address] [address] Creatinine [Mass/Vol] 0.82 mg/dL Normal 0.73-1.22 [facility] Comment on above: Performed By: #### C BC, PT, HFP, BMP ####[facility] [address] [address] eGFR- Amer. >60 Normal [facility] Comment on above: Performed By: #### C BC, PT, HFP, BMP ####[facility] [address] [address] eGFR-All Other Races >60 Normal [facility] Comment on above: Result Comment: eGFR (Estimated GFR) Units of measure: mL/min/1.73 meters squared eGFR is derived from the reexpressed MDRD Study equation using the following parameters: serum creatinine, age, gender and race. The creatinine assay has been calibrated to be traceable to IDMS. An eGFR <60 mL/min/1.73m2 for >3 months is consistent with chronic kidney disease. Refer to KDOQI guidelines for clinical interpretation. In patients with unstable renal function, e.g. those with acute kidney injury, the eGFR may not accurately reflect actual GFR. Performed By: #### C BC, PT, HFP, BMP ####[facility] [address] [address] Glucose [Mass/Vol] 109 mg/dL High 74-99 [facility] Comment on above: Result Comment: The [place] Diabetes Association (ADA) provides guidance for cutoff values for fasting glucose and random glucose. The ADA defines fasting as no caloric intake for at least 8 hours. Fasting plasma glucose results between 100 to 125 mg/dL indicate increased risk for diabetes (prediabetes). Fasting plasma glucose results greater than or equal to 126 mg/dL meet the criteria for diagnosis of diabetes. In the absence of unequivocal hyperglycemia, results should be confirmed by repeat testing. In a patient with classic symptoms of hyperglycemia or hyperglycemic crisis, random plasma glucose results greater than or equal to 200 mg/dL meet the criteria for diagnosis of diabetes. Reference: Standards of Medical Care in Diabetes 2016, [place] Diabetes Association. Diabetes Care. 2016.39(Suppl 1). Performed By: #### C BC, PT, HFP, BMP ####[facility] [address] [address] Potassium [Moles/Vol] 4.0 mmol/L Normal 3.7-5.1 [facility] Comment on above: Performed By: #### C BC, PT, HFP, BMP ####[place] [address] Sodium [Moles/Vol] 142 mmol/L Normal 136-144 [facility] Comment on above: Performed By: #### C BC, PT, HFP, BMP ####[facility] [address] [place] [address] Urea nitrogen [Mass/Vol] 13 mg/dL Normal 9-24 [facility] Comment on above: Performed By: #### C BC, PT, HFP, BMP ####[place] [address] C-Reactive Proteinon 021 C-Reactive Protein 0.4 mg/dL Normal <0.9 [facility] Comment on above: Performed By: #### L D6 ####[facility] [place], [place] [phone]#### CRP ####[facility] [address] [place] [address] CBCon 11-10-2020 Absolute nRBC <0.01 Normal <0.01 [facility] Comment on above: Performed By: #### C BC, PT, HFP, BMP ####[place] [address] Erythrocyte distribution width (RBC) [Ratio] 13.1 % Normal 11.5-15.0 [facility] Comment on above: Performed By: #### C BC, PT, HFP, BMP ####[facility] [address] [address] Hematocrit (Bld) [Volume fraction] 44.1 % Normal 39.0-51.0 [facility] Comment on above: Performed By: #### C BC, PT, HFP, BMP ####[facility] [address] [place], [place] [phone] Hemoglobin (Bld) [Mass/Vol] 14.7 g/dL Normal 13.0-17.0 [facility] Comment on above: Performed By: #### C BC, PT, HFP, BMP ####[facility] [address] [place] [address] MCH 28.1 pG Normal 26.0-34.0 [facility] Comment on above: Performed By: #### C BC, PT, HFP, BMP ####[facility] [address] [place] [address] MCHC (RBC) [Mass/Vol] 33.3 g/dL Normal 30.5-36.0 [facility] Comment on above: Performed By: #### C BC, PT, HFP, BMP ####[facility] [address] [place] [address] MCV (RBC) [Entitic vol] 84.2 fL Normal 80.0-100.0 [facility] Comment on above: Performed By: #### C BC, PT, HFP, BMP ####[facility] [address] [place] [address] Platelet mean volume (Bld) [Entitic vol] 10.2 fL Normal 9.0-12.7 [facility] Comment on above: Performed By: #### C BC, PT, HFP, BMP ####[facility] [address] [place], [place] [phone] Platelets (Bld) [#/Vol] 286 10*3/uL Normal 150-400 [facility] Comment on above: Performed By: #### C BC, PT, HFP, BMP ####[facility] [address] [place], [place] [phone] RBC (Bld) [#/Vol] 5.24 10*6/uL Normal 4.20-6.00 [facility] Comment on above: Performed By: #### C BC, PT, HFP, BMP ####[facility] [address] [place] [address] WBC (Bld) [#/Vol] 6.66 10*3/uL Normal 3.70-11.00 [facility] Comment on above: Performed By: #### C BC, PT, HFP, BMP ####[facility] [address] [place] [address] Ferritinon 11-10-2020 Ferritin [Mass/Vol] 269.7 ng/mL Normal 30.3-565.7 [facility] Comment on above: Performed By: #### F ERR ####[facility] [address] [place] [address] Hepatic Functn Panelon 11-10 Albumin [Mass/Vol] 4.5 g/dL Normal 3.9-4.9 [facility] Comment on above: Performed By: #### C BC, PT, HFP, BMP ####[facility] [address] [place] [address] ALP [Catalytic activity/Vol] 50 U/L Normal 38-113 [facility] Comment on above: Performed By: #### C BC, PT, HFP, BMP ####[facility] [address] [place] [address] ALT [Catalytic activity/Vol] 101 U/L High 10-54 [facility] Comment on above: Performed By: #### C BC, PT, HFP, BMP ####[facility] [address] [place] [address] AST [Catalytic activity/Vol] 40 U/L Normal 14-40 [facility] Comment on above: Performed By: #### C BC, PT, HFP, BMP ####[facility] [address] [place] [address] Bilirubin [Mass/Vol] 0.6 mg/dL Normal 0.2-1.3 [facility] Comment on above: Performed By: #### C BC, PT, HFP, BMP ####[facility] [address] [place] [address] Bilirubin,Conjugated <0.2 Normal <0.2 [facility] Comment on above: Performed By: #### C BC, PT, HFP, BMP ####[facility] [address] [place] [phone] Protein [Mass/Vol] 7.0 g/dL Normal 6.3-8.0 [facility] Comment on above: Performed By: #### C BC, PT, HFP, BMP ####[facility] [address]xfgi4515 [address] High Sens Troponin Ton 11-10 High Sensitivity KISHA <6 Normal <12 [facility] Comment on above: Performed By: #### H STNT ####[facility] [address] LDon 11-10-2020 LD 303 U/L High 135-225 [facility] Comment on above: Performed By: #### L D6 ####[facility] [address] [place], [place] [phone]#### CRP ####[facility] [address] Protimeon 11-10-2020 PT INR 1.2 Normal 0.9-1.3 [facility] Comment on above: Result Comment: Loni min K Antagonist (VKA) Therapeutic Range: INR 2 to 3 (Target INR of 2.5) Note: For patients treated with VKA drugs, such as warfarin, the [place] [employer] 2012 Guideline recommends a therapeutic INR range of 2 to 3 (target INR of 2.5). This recommendation includes high-risk patients with antiphospholipid syndrome with previous arterial or venous thromboembolism, current-generation mechanical or bioprosthetic aortic heart valve replacement. Note: Patients with mechanical aortic valve replacement and additional risk factors for thromboembolic events (atrial fibrillation, previous thromboembolism, LV dysfunction, hypercoagulable conditions) or an older generation mechanical AVR (i.e., ball in-Cage) or any mechanical MVR should have a INR therapeutic range of 2.5 to 3.5 (target INR of 3). Raiza GH, et al. Chest 2012, 141:7S-47S Bharathi GUNN et al. [facility] 2017, 70: 252-289 Performed By: #### C BC, PT, HFP, BMP ####[facility] [address] PT Sec 12.2 sec Normal 9.7-13.0 [facility] Comment on above: Performed By: #### C BC, PT, HFP, BMP ####[facility] [address] [place] [address] Acetaminophenon 11-09-2020 Acetaminophen [Mass/Vol] ug/mL Low 10- [facility] Comment on above: Result Comment: Toxi c > 150 ug/mL 4 hours post ingestion The Francine Esteban nomogram can be used to estimate the probability of hepatotoxicity via the relationship of plasma acetaminophen concentration to the post ingestion interval. (Steve. Pediatrics. 1975. 55:871 to 876 and Francine et al. Arch [employer] Med. 1981. 141:380 to 385). Reference ranges and high/low indicator flags are provided as general guidelines only. The treating physician must determine appropriate target levels/dosing based on the specific clinical situation. Performed By: #### A CETM ####[facility] [address] [place] [address] Basic Metabolic Panlon 11-09 Anion gap [Moles/Vol] 11 mmol/L Normal 9-18 [facility] Comment on above: Performed By: #### C BC, PT, BMP, HFP ####[facility] [address] [place] [address] Calcium [Mass/Vol] 8.7 mg/dL Normal 8.5-10.2 [facility] Comment on above: Performed By: #### C BC, PT, BMP, HFP ####[facility] [address] [place] [address] Chloride [Moles/Vol] 102 mmol/L Normal 97-105 [facility] Comment on above: Performed By: #### C BC, PT, BMP, HFP ####[facility] [address] [place] [address] CO2 [Moles/Vol] 26 mmol/L Normal -30 [facility] Comment on above: Performed By: #### C BC, PT, BMP, HFP ####[facility] [address] [place] [address] Creatinine [Mass/Vol] 0.71 mg/dL Low 0.73-1.22 [facility] Comment on above: Performed By: #### C BC, PT, BMP, HFP ####[facility] [address]721[address] eGFR- Amer. >60 Normal [facility] Comment on above: Performed By: #### C BC, PT, BMP, HFP ####[facility] [address]om[address]oid7571 [phone] eGFR-All Other Races >60 Normal [facility] Comment on above: Result Comment: eGFR (Estimated GFR) Units of measure: mL/min/1.73 meters squared eGFR is derived from the reexpressed MDRD Study equation using the following parameters: serum creatinine, age, gender and race. The creatinine assay has been calibrated to be traceable to IDMS. An eGFR <60 mL/min/1.73m2 for >3 months is consistent with chronic kidney disease. Refer to KDOQI guidelines for clinical interpretation. In patients with unstable renal function, e.g. those with acute kidney injury, the eGFR may not accurately reflect actual GFR. Performed By: #### C BC, PT, BMP, HFP ####[facility] [address] [place] [phone] Glucose [Mass/Vol] 109 mg/dL High 74-99 [facility] Comment on above: Result Comment: The [place] Diabetes Association (ADA) provides guidance for cutoff values for fasting glucose and random glucose. The ADA defines fasting as no caloric intake for at least 8 hours. Fasting plasma glucose results between 100 to 125 mg/dL indicate increased risk for diabetes (prediabetes). Fasting plasma glucose results greater than or equal to 126 mg/dL meet the criteria for diagnosis of diabetes. In the absence of unequivocal hyperglycemia, results should be confirmed by repeat testing. In a patient with classic symptoms of hyperglycemia or hyperglycemic crisis, random plasma glucose results greater than or equal to 200 mg/dL meet the criteria for diagnosis of diabetes. Reference: Standards of Medical Care in Diabetes 2016, [place] [employer]. Diabetes Care. 2016.39(Suppl 1). Performed By: #### C BC, PT, BMP, HFP ####[facility] [address]fm2943 [phone] Potassium [Moles/Vol] 4.2 mmol/L Normal 3.7-5.1 [facility] Comment on above: Performed By: #### C BC, PT, BMP, HFP ####[facility] [address] [place] [address] Sodium [Moles/Vol] 139 mmol/L Normal 136-144 [facility] Comment on above: Performed By: #### C BC, PT, BMP, HFP ####[facility] [address] [place] [address] Urea nitrogen [Mass/Vol] 10 mg/dL Normal 9-24 [facility] Comment on above: Performed By: #### C BC, PT, BMP, HFP ####[facility] [address] [place] [address] C-Reactive Proteinon 021 C-Reactive Protein 1.0 mg/dL High <0.9 [facility] Comment on above: Performed By: #### C RP ####[place] [address] CBCon 11-09-2020 Absolute nRBC <0.01 Normal <0.01 [facility] Comment on above: Performed By: #### C BC, PT, BMP, HFP ####[place] [address] Erythrocyte distribution width (RBC) [Ratio] 13.1 % Normal 11.5-15.0 [facility] Comment on above: Performed By: #### C BC, PT, BMP, HFP ####[place] [address] Hematocrit (Bld) [Volume fraction] 39.8 % Normal 39.0-51.0 [facility] Comment on above: Performed By: #### C BC, PT, BMP, HFP ####[facility] [address] [place] [address] Hemoglobin (Bld) [Mass/Vol] 13.4 g/dL Normal 13.0-17.0 [facility] Comment on above: Performed By: #### C BC, PT, BMP, HFP ####[place] [address] MCH 28.3 pG Normal 26.0-34.0 [facility] Comment on above: Performed By: #### C BC, PT, BMP, HFP ####[facility] [address] [place], [place] [phone] MCHC (RBC) [Mass/Vol] 33.7 g/dL Normal 30.5-36.0 [facility] Comment on above: Performed By: #### C BC, PT, BMP, HFP ####[facility] [address] [place] [address] MCV (RBC) [Entitic vol] 84.1 fL Normal 80.0-100.0 [facility] Comment on above: Performed By: #### C BC, PT, BMP, HFP ####[facility] [address] [place] [address] Platelet mean volume (Bld) [Entitic vol] 10.6 fL Normal 9.0-12.7 [facility] Comment on above: Performed By: #### C BC, PT, BMP, HFP ####[facility] [address] [place] [address] Platelets (Bld) [#/Vol] 236 10*3/uL Normal 150-400 [facility] Comment on above: Performed By: #### C BC, PT, BMP, HFP ####[facility] [address] [place] [address] RBC (Bld) [#/Vol] 4.73 10*6/uL Normal 4.20-6.00 [facility] Comment on above: Performed By: #### C BC, PT, BMP, HFP ####[facility] [address] [place] [address] WBC (Bld) [#/Vol] 5.06 10*3/uL Normal 3.70-11.00 [facility] Comment on above: Performed By: #### C BC, PT, BMP, HFP ####[facility] [address] [place] [address] CNCOon 11-09-2020 CNCO Letter Text Normal [facility] CONSULTon 11-09-2020 CONSULT HNO ID: [id number] Author: Iban Iniguez MD Service: Infectious Disease Author Type: Physician Type: Consults Filed: 11/09/2020 2:16 PM Note Text: CONSULT: INFECTIOUS DISEASE SERVICE SERVICE DATE: 11/09/2020 SERVICE TIME: 11:54 AM REASON FOR CONSULT: COVID-19 REQUESTING PHYSICIAN: PRIMARY CARE PHYSICIAN: Cholo Cheng MD Subjective Mr. Hummel is a 20 year old male PMHX significant for asthma, vaping/ tobacco abuse, RSV, who presented to the ED with c/o shortness of breath, weakness, and hypoxia. He tested positive for COVID-19 on 10/30/20, symptom onset 1-2 days prior which initially consisted of fever, chills, diarrhea, nausea/vomiting, headache, myalgias. He had been using his inhalers without relief. His home pulse ox was recording saturations in the 80's. He is unvaccinated for COVID-19. In the ED he was afebrile, hypoxic requiring 3L supplemental O2. WBC 4.7, CRP 1.0, Elevated LFT's, pro cb negative. CT Chest significant for diffuse GGO's c/s with COVID Viral pneumonia. He was started on Ceftriaxone/ Azithromycin, Remdesivir, and Dexamethasone, admitted. ID consulted for further management. PAST MEDICAL HISTORY Diagnosis Date - PMH - PAST MEDICAL HISTORY OF 05/08/03 normal color vision - PMH - PAST MEDICAL HISTORY OF child is adopted - Respiratory syncytial virus (RSV) age 6 mos - Routine or ritual circumcision - Unspecified asthma(493.90) PAST SURGICAL HISTORY Procedure Laterality Date - PAST SURGICAL HISTORY OF 1998 circumcision - PAST SURGICAL HISTORY OF age 4-5 years tonsils and adenoids removed - Dr Arce FAMILY HISTORY Problem Relation Age of Onset - other (adopted-history unknown) Sister Social History Tobacco Use - Smoking status: Never Smoker - Smokeless tobacco: Never Used Substance Use Topics - Alcohol use: No - Drug use: No metoclopramide HCl (REGLAN) 10 mg tablet, Take 1 tablet by mouth every 8 hours as needed (nausea and vomiting)., Disp: 15 tablet, Rfl: 0, 11/08/2020 at AMtime guaifenesin/dextrometh orphan (MUCINEX DM ORAL), Take by mouth., Disp: , Rfl: , Unknown at Unknown time ibuprofen (MOTRIN) 200 mg tablet, Take 200 mg by mouth every 6 hours as needed., Disp: , Rfl: , 11/07/2020 at Unknown time acetaminophen (TYLENOL) 325 mg tablet, Take 650 mg by mouth every 6 hours as needed., Disp: , Rfl: , 11/08/2020 at AMtime albuterol HFA (PROVENTIL HFA, VENTOLIN HFA) 90 mcg/actuation inhaler, Inhale 2 Puffs as instructed every 4 hours as needed for Wheezing/Shortness of Breath., Disp: 1 Inhaler, Rfl: 0, Unknown at Unknown time ylwjqspi-ezggplxgb-otj rocortisone (CORTISPORIN) otic solution, Use 3 Drops in both ears three times daily. (Patient not taking: Reported on 10/25/2018 ), Disp: 1 Bottle, Rfl: 0 triamcinolone (KENALOG) 0.025 % ointment, Apply 1 application to affected area twice daily. Sparingly, for up to 14 days prn itchy rash on feet, hands (Patient not taking: Reported on 09/21/2018 ), Disp: 80 g, Rfl: 0 montelukast (SINGULAIR) 10 mg tablet, Take 1 tablet by mouth daily at bedtime. (Patient not taking: Reported on 09/19/2016), Disp: 30 tablet, Rfl: 11 Current Facility-Administered Medications Medication Dose Route Frequency - iv contrast (radiology procedure) INTRAVENOUS DIRECTED PRN - remdesivir 100 mg in NaCl 0.9% 250 mL Vial-Mate/ADD-[place] 100 mg INTRAVENOUS q 24 HR - NaCl 0.9% iv flush bag 20 mL INTRAVENOUS PRN - enoxaparin 60 mg injection (LOVENOX) 60 mg SUBCUTANEOUS q 12 HR - sodium chloride 0.9 % (flush) 3-5 mL (BD POSIFLUSH) 3-5 mL INTRAVENOUS q 12 H - dexAMETHasone 6 mg tab(s) (DECADRON) 6 mg ORAL DAILY Or - dexAMETHasone sodium phosphate (PF) 6 mg injection (DECADRON) 6 mg INTRAVENOUS DAILY - albuterol HFA 90 mcg/actuation 2 Puff (PROVENTIL HFA, VENTOLIN HFA) 2 Puff INHALATION q 4 H PRN - guaiFENesin 600 mg ER tab(s) (MUCINEX) 600 mg ORAL q 12 H PRN - benzonatate 100 mg cap(s) (TESSALON PERLE) 100 mg ORAL TID PRN - azithromycin 500 mg tab(s) (ZITHROMAX) 500 mg ORAL DAILY - cefTRIAXone 1 g in D5W 100 mL MB+ (ROCEPHIN) 1 g INTRAVENOUS q 24 H - ondansetron (PF) 4 mg injection (ZOFRAN) 4 mg INTRAVENOUS q 6 H PRN - ibuprofen 200 mg tab(s) (MOTRIN) 200 mg ORAL QID PRN - pantoprazole 40 mg injection (PROTONIX) 40 mg INTRAVENOUS DAILY (6 AM) - prochlorperazine 5 mg tab(s) (COMPAZINE) 5 mg ORAL q 6 H PRN Allergies As of Date: 11/08/2020 Allergen Noted Reaction CATS 10/08/2008 Intolerance ENVIROMENTAL [OTHER] 03/29/2008 Fully Assessed 11/08/2020 COMPLETE REVIEW OF SYSTEMS: 10 point ROS complete, negative unless otherwise stated in HPI - continues to c/o shortness of breath, cough, weakness, fatigue Objective PHYSICAL EXAM: Temp (24hrs), Av.8 ?C (98.2 ?F), Min:36.6 ?C (97.9 ?F), Max:36.9 ?C (98.4 ?F) GEN: Sleepy, NAD HEENT: PERRL, moist oral mucosa, neck supple PULM: diminished breath sounds bilateral CV: RRR GI: soft, non distended, non tender, BSx4 (more content not included)... Normal [facility] D dimeron 11-09-2020 D dimer 360 ng/mL FEU Normal <500 [facility] Comment on above: Result Comment: 500 ng/mL FEU is the D Dimer cutoff to exclude DVT (deep vein thrombosis) and PE (pulmonary embolism) in patients with a low pre test probability. Supplemental Comment: In patients over 50 years with a low pre test probability for DVT and/or PE, an age adjusted D dimer cutoff can be calculated as [age x 10] ng/mL FEU. For example, a patient of 88 years would have an age adjusted D dimer cutoff of 880 ng/mL FEU. For patients with a suspected DVT, a D dimer level below 500 ng/mL FEU has a negative predictive value of >98.9%, a sensitivity of >96.9% and a specificity of >35.7%. For patients with a suspected PE, a D dimer level below 500 ng/mL FEU has a negative predictive value of >98.5%, and a sensitivity of >96.5% and a specificity of >38.8%. Reference: Righini M, et al. NATY 2014 311:1117 and Kevin Pro N, et al. Angelica Int Med 2016 165:253. Performed By: #### P ROBERT ####[facility] [place], [place] [phone]#### SYLVIA ####[facility] [address] [place] [address] Hepatic Functn Panelon 11-09 Albumin [Mass/Vol] 4.0 g/dL Normal 3.9-4.9 [facility] Comment on above: Performed By: #### C BC, PT, BMP, HFP ####[facility] [address] [place] [address] ALP [Catalytic activity/Vol] 46 U/L Normal 38-113 [facility] Comment on above: Performed By: #### C BC, PT, BMP, HFP ####[facility] [address] [place] [address] ALT [Catalytic activity/Vol] 82 U/L High 10-54 [facility] Comment on above: Performed By: #### C BC, PT, BMP, HFP ####[facility] [address] [place] [address] AST [Catalytic activity/Vol] 31 U/L Normal 14-40 [facility] Comment on above: Performed By: #### C BC, PT, BMP, HFP ####[facility] [address] [place] [address] Bilirubin [Mass/Vol] 0.4 mg/dL Normal 0.2-1.3 [facility] Comment on above: Performed By: #### C BC, PT, BMP, HFP ####[facility] [address] [place] [address] Bilirubin,Conjugated <0.2 Normal <0.2 [facility] Comment on above: Performed By: #### C BC, PT, BMP, HFP ####[facility] [address] [place] [address] Protein [Mass/Vol] 6.3 g/dL Normal 6.3-8.0 [facility] Comment on above: Performed By: #### C BC, PT, BMP, HFP ####[facility] [address] [place] [address] High Sens Troponin Ton 11-09 High Sensitivity KISHA <6 Normal <12 [facility] Comment on above: Performed By: #### H STNT ####[facility] [address] [place] [address] Legionella Urine Agon 2020 Legionella Urine Ag Negative Normal Negative [facility] Comment on above: Result Comment: Nega tive for L. pneumophila serogroup 1 antigen in urine, suggesting no recent or current infection. Legionnaires disease cannot be ruled out since other serogroups and species may also cause disease. Performed By: #### L EGUAG ####[place] [phone] NT Pro BNPon 11-09-2020 PRO B Natr Peptide <50 Normal <125 [facility] Comment on above: Performed By: #### N TBNP ####[place] [address] Procalcitoninon 11-09-2020 Procalcitonin <0.06 Normal <0.09 [facility] Comment on above: Result Comment: For a guided interpretation of test results, please visit the Change in Procalcitonin Calculator, [email or web address]. Performed By: #### P ROCAL ####[place] [phone]#### DDMER ####[place] [address] Protimeon 11-09-2020 PT INR 1.2 Normal 0.9-1.3 [facility] Comment on above: Result Comment: Loni min K Antagonist (VKA) Therapeutic Range: INR 2 to 3 (Target INR of 2.5) Note: For patients treated with VKA drugs, such as warfarin, the [place] [employer] 2012 Guideline recommends a therapeutic INR range of 2 to 3 (target INR of 2.5). This recommendation includes high-risk patients with antiphospholipid syndrome with previous arterial or venous thromboembolism, current-generation mechanical or bioprosthetic aortic heart valve replacement. Note: Patients with mechanical aortic valve replacement and additional risk factors for thromboembolic events (atrial fibrillation, previous thromboembolism, LV dysfunction, hypercoagulable conditions) or an older generation mechanical AVR (i.e., ball in-Cage) or any mechanical MVR should have a INR therapeutic range of 2.5 to 3.5 (target INR of 3). Raiza LEIVA, et al. Chest 2012, 141:7S-47S Bharathi GUNN, et al. [facility] 2017, 70: 252-289 Performed By: #### C BC, PT, BMP, HFP ####[facility] [address] [place] [phone] PT Sec 12.3 sec Normal 9.7-13.0 [facility] Comment on above: Performed By: #### C BC, PT, BMP, HFP ####[facility] [address] [place] [phone] Respiratory Cult/Stainon Respiratory Cult/Stain Sp. Request/Comment: - Specimen received in sterile container. Smear Result - Rare Mixed oral clarence Few Polymorphonuclear leukocytes Culture Result - Few Normal respiratory clarence present Normal [facility] Comment on above: Performed By: #### R CULST ####[facility] [address] [place], [place] [phone] S pneumo Ag Detecton 021 S pneumo Ag Detect Sp. Request/Comment: - Specimen received in sterile container. Test Result - Negative for S.pneumoniae antigen. Presumptive negative for pneumococcal pneumonia, suggesting no current or recent pneumococcal infection. Infection due to S.pneumoniae cannot be ruled out since the antigen present in the sample may be below the detection limit of the test. Normal [facility] Comment on above: Performed By: #### S PNAG ####[facility] [address] [place], [place] [phone] ALLIED HEALTHon 11-08-2020 ALLIED HEALTH HNO ID: [id number] Author: BLANCA Diallo Service: Radiology Author Type: Clinical Production Specialist Type: Allied Health Filed: 11/08/2020 2:30 PM Note Text: Radiology Service Progress Note DATE OF SERVICE: November 08, 2020 TIME: 2:30 PM PATIENT IDENTITY VERIFICATION COMPLETED USING TWO (2) STANDARD IDENTIFIERS: Name and Date of confirmed by patient verbally and Name and Date of confirmed by identification band. FALL SCREENING: Has the patient had 2 falls in the last year or 1 fall with injury or currently using an Ambulatory Assistive Device (Walker, Cane, Wheelchair, Crutches, etc.)? Emergency Room Patient: Screened in ED PATIENT GENDER DATA: Male PATIENT RELEVANT IMPLANT DATA REVIEWED: Not Applicable ALLERGIES: Reviewed and unchanged CONTRAST ALLERGY: NO. EXAM: CT -CONTRAST INDUCED NEPHROPATHY RISK FACTORS: Not applicable CREATININE: Creatinine Date Value Ref Range Status 11/08/2020 0.86 0.73 - 1.22 mg/dL Final 11/07/2020 1.17 0.73 - 1.22 mg/dL Final 02/19/2013 0.71 0.30 - 1.20 mg/dL Final eGFR-All Other Races Date Value Ref Range Status 11/08/2020 >60 . Final Comment: eGFR (Estimated GFR) Units of measure: mL/min/1.73 meters squared eGFR is derived from the reexpressed MDRD Study equation using the following parameters: serum creatinine, age, gender and race. The creatinine assay has been calibrated to be traceable to IDMS. An eGFR <60 mL/min/1.73m2 for >3 months is consistent with chronic kidney disease. Refer to KDOQI guidelines for clinical interpretation. In patients with unstable renal function, e.g. those with acute kidney injury, the eGFR may not accurately reflect actual GFR. eGFR- Date Value Ref Range Status 11/08/2020 >60 Final P.O.C.T. RESULTS: N/A November 08, 2020 TREATMENT: N/A PERIPHERAL IV DATA: Inpatient - refer to [facility] documentation RADIOLOGY DEPARTMENT: CT; Exam(s) Completed: Study SIGNATURE: BLANCA Diallo PATIENT NAME: Moira Hummel DATE: November 08, 2020 TIME: 2:30 PM Normal [facility] CBC and Differentialon 11-08 Abs Baso <0.03 Normal <0.11 [facility] Comment on above: Performed By: #### C BCDIF, CMP, MG1 ####[facility] [address] [place] [phone] Abs Eosin <0.03 Normal <0.46 [facility] Comment on above: Performed By: #### C BCDIF, CMP, MG1 ####[facility] [address] [place] [address] Abs Williamson 0.23 k/uL Normal <0.87 [facility] Comment on above: Performed By: #### C BCDIF, CMP, MG1 ####[facility] [address] [place] [address] Abs Neut 3.82 k/uL Normal 1.45-7.50 [facility] Comment on above: Performed By: #### C BCDIF, CMP, MG1 ####[facility] [address] [place] [address] Absolute nRBC <0.01 Normal <0.01 [facility] Comment on above: Performed By: #### C BCDIF, CMP, MG1 ####[place] [address] Basophils/100 WBC (Bld) 0.2 % Normal [facility] Comment on above: Performed By: #### C BCDIF, CMP, MG1 ####[place] [address] DTYPE Auto Diff Normal [facility] Comment on above: Performed By: #### C BCDIF, CMP, MG1 ####[place] [address] Eosinophils/100 WBC (Bld) 0.0 % Normal [facility] Comment on above: Performed By: #### C BCDIF, CMP, MG1 ####[place] [address] Erythrocyte distribution width (RBC) [Ratio] 13.1 % Normal 11.5-15.0 [facility] Comment on above: Performed By: #### C BCDIF, CMP, MG1 ####[place] [address] Hematocrit (Bld) [Volume fraction] 45.6 % Normal 39.0-51.0 [facility] Comment on above: Performed By: #### C BCDIF, CMP, MG1 ####[facility] [address] [place] [address] Hemoglobin (Bld) [Mass/Vol] 15.2 g/dL Normal 13.0-17.0 [facility] Comment on above: Performed By: #### C BCDIF, CMP, MG1 ####[facility] [address] [place] [address] Lymphocytes (Bld) [#/Vol] 0.62 10*3/uL Low 1.00-4.00 [facility] Comment on above: Performed By: #### C BCDIF, CMP, MG1 ####[facility] [address] [place] [address] Lymphocytes/100 WBC (Bld) 13.2 % Normal [facility] Comment on above: Performed By: #### C BCDIF, CMP, MG1 ####[place] [address] MCH 27.9 pG Normal 26.0-34.0 [facility] Comment on above: Performed By: #### C BCDIF, CMP, MG1 ####[facility] [address] [place] [address] MCHC (RBC) [Mass/Vol] 33.3 g/dL Normal 30.5-36.0 [facility] Comment on above: Performed By: #### C BCDIF, CMP, MG1 ####[place] [address] MCV (RBC) [Entitic vol] 83.7 fL Normal 80.0-100.0 [facility] Comment on above: Performed By: #### C BCDIF, CMP, MG1 ####[place] [address] Monocytes/100 WBC (Bld) 4.9 % Normal [facility] Comment on above: Performed By: #### C BCDIF, CMP, MG1 ####[place] [address] Neutrophils/100 WBC (Bld) 81.7 % Normal [facility] Comment on above: Performed By: #### C BCDIF, CMP, MG1 ####[facility] [address] [place] [address] NRBCs 0.0 /100 WBC Normal 0 [facility] Comment on above: Performed By: #### C BCDIF, CMP, MG1 ####[facility] [address] [place] [address] Platelet mean volume (Bld) [Entitic vol] 10.4 fL Normal 9.0-12.7 [facility] Comment on above: Performed By: #### C BCDIF, CMP, MG1 ####[facility] [address] [place] [address] Platelets (Bld) [#/Vol] 228 10*3/uL Normal 150-400 [facility] Comment on above: Performed By: #### C BCDIF, CMP, MG1 ####[facility] [address] [place] [address] RBC (Bld) [#/Vol] 5.45 10*6/uL Normal 4.20-6.00 [facility] Comment on above: Performed By: #### C BCDIF, CMP, MG1 ####[facility] [address] [place] [address] WBC (Bld) [#/Vol] 4.70 10*3/uL Normal 3.70-11.00 [facility] Comment on above: Performed By: #### C BCDIF, CMP, MG1 ####[facility] [address] [place] [address] CT CHEST W IVCON PEon 2020 CT CHEST W IVCON PE * * *Final Report* * * DATE OF EXAM: Nov 08 2020 2:39PM [facility] 0540 - CT CHEST W IVCON PE / PROCEDURE REASON: Shortness of breath * * * * Physician Interpretation * * * * EXAMINATION: CHEST CT WITH CONTRAST (PULMONARY EMBOLISM PROTOCOL) CLINICAL HISTORY: Shortness of breath. Technique: Spiral CT acquisition of the chest from the thoracic inlet to the upper abdomen following IV contrast. Axial 1 and 3 mm thick slices plus coronal and sagittal reformatted images. MQ: CTCP_5 Contrast: 85 mL Omnipaque [address] Radiation dose: Integrated Dose-length product (DLP) for this visit = 374 mGy*cm CT Dose Reduction Employed: Automated exposure control (AEC) COMPARISON: There are no prior relevant CT chest examinations available for comparison within the [facility] Imaging Archives. Comparison is made to prior chest radiograph dated 06/09/2014 RESULT: Limitations: Adjacent airspace disease Evaluation for thromboembolic disease: - Right heart chambers: No thromboembolic disease. - Main pulmonary arteries: No thromboembolic disease. - Lobar pulmonary arteries: No thromboembolic disease. - Segmental pulmonary arteries: No thromboembolic disease. - Subsegmental pulmonary arteries: No thromboembolic disease. - Additional pulmonary artery findings: The main pulmonary artery is normal in caliber. Lines, tubes, and devices: None. Lung parenchyma and airways: The central airways are patent. There are diffuse and bilateral groundglass opacities. There are multifocal juxtapleural and parenchymal consolidating airspace infiltrates predominantly within the mid and lower lung zones. Airspace consolidation with air bronchograms and atelectasis is seen at the right lung base with eventration of the right hemidiaphragm, suggesting some volume loss. No suspicious pulmonary nodules or masses. Pleural space: No pleural effusion. No pleural thickening. Lower neck, lymph nodes, and mediastinum: The imaged thyroid gland is normal. No pathologic lymphadenopathy in the supraclavicular, axillary, mediastinal, or hilar regions by size criteria. Heart, pericardium, and thoracic vessels: The thoracic aorta is normal in caliber. The cardiac chambers are normal in size. No coronary artery atherosclerotic calcifications are noted, although the study is not optimized for coronary assessment. No pericardial effusion or thickening. Bones and soft tissues: No destructive bone lesion. Chest wall is unremarkable. Upper abdomen: No abnormality in the imaged upper abdomen. Fire Truck Driver (topogram) images: No additional findings. IMPRESSION: No CT evidence of pulmonary embolism. Diffuse groundglass opacities with multifocal juxtapleural and parenchymal consolidative and groundglass opacities consistent with multifocal pneumonia. There is likely some atelectasis and volume loss at the right lung base. Viral etiologies considered, possibly Covid pneumonia. 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 Transcribe Date/Time: Nov 08 2020 2:55P Dictated by : LEO DELGADILLO MD This examination was interpreted and the report reviewed and electronically signed by: LEO DELGADILLO MD on Nov 08 2020 3:00PM EST [id number] Normal [facility] Comp Metabolic Panelon 11-08 Albumin [Mass/Vol] 4.6 g/dL Normal 3.9-4.9 [facility] Comment on above: Performed By: #### C BCDIF, CMP, MG1 ####[facility] [address] [place] [address] ALP [Catalytic activity/Vol] 56 U/L Normal 38-113 [facility] Comment on above: Performed By: #### C BCDIF, CMP, MG1 ####[facility] [address] [place] [address] ALT [Catalytic activity/Vol] 115 U/L High 10-54 [facility] Comment on above: Performed By: #### C BCDIF, CMP, MG1 ####[facility] [address] [place] [address] Anion gap [Moles/Vol] 9 mmol/L Normal 9-18 [facility] Comment on above: Performed By: #### C BCDIF, CMP, MG1 ####[facility] [address] [place] [address] AST [Catalytic activity/Vol] 53 U/L High 14-40 [facility] Comment on above: Performed By: #### C BCDIF, CMP, MG1 ####[facility] [address] [place] [address] Bilirubin [Mass/Vol] 0.6 mg/dL Normal 0.2-1.3 [facility] Comment on above: Performed By: #### C BCDIF, CMP, MG1 ####[facility] [address] [place] [address] Performed By: #### P T, HFP ####[facility] [address] [place] [address] Calcium [Mass/Vol] 9.6 mg/dL Normal 8.5-10.2 [facility] Comment on above: Performed By: #### C BCDIF, CMP, MG1 ####[facility] [address] [place] [address] Chloride [Moles/Vol] 103 mmol/L Normal 97-105 [facility] Comment on above: Performed By: #### C BCDIF, CMP, MG1 ####[facility] [address] [place] [address] CO2 [Moles/Vol] 28 mmol/L Normal 22-30 [facility] Comment on above: Performed By: #### C LONG AMBROSIO, MG1 ####[facility] [address] [place] [address] Creatinine [Mass/Vol] 0.86 mg/dL Normal 0.73-1.22 [facility] Comment on above: Performed By: #### C BCDIFLONG, MG1 ####[facility] [address] [place] [address] eGFR- Amer. >60 Normal [facility] Comment on above: Performed By: #### C BCDIFLONG, MG1 ####[facility] [address] [place] [address] eGFR-All Other Races >60 Normal [facility] Comment on above: Result Comment: eGFR (Estimated GFR) Units of measure: mL/min/1.73 meters squared eGFR is derived from the reexpressed MDRD Study equation using the following parameters: serum creatinine, age, gender and race. The creatinine assay has been calibrated to be traceable to IDMS. An eGFR <60 mL/min/1.73m2 for >3 months is consistent with chronic kidney disease. Refer to KDOQI guidelines for clinical interpretation. In patients with unstable renal function, e.g. those with acute kidney injury, the eGFR may not accurately reflect actual GFR. Performed By: #### C BCJAREKFLONG, MG1 ####[facility] [address] [place] [address] Glucose [Mass/Vol] 141 mg/dL High 74-99 [facility] Comment on above: Result Comment: The [place] Diabetes Association (ADA) provides guidance for cutoff values for fasting glucose and random glucose. The ADA defines fasting as no caloric intake for at least 8 hours. Fasting plasma glucose results between 100 to 125 mg/dL indicate increased risk for diabetes (prediabetes). Fasting plasma glucose results greater than or equal to 126 mg/dL meet the criteria for diagnosis of diabetes. In the absence of unequivocal hyperglycemia, results should be confirmed by repeat testing. In a patient with classic symptoms of hyperglycemia or hyperglycemic crisis, random plasma glucose results greater than or equal to 200 mg/dL meet the criteria for diagnosis of diabetes. Reference: Standards of Medical Care in Diabetes 2016, [place] [employer] Association. Diabetes Care. 2016.39(Suppl 1). Performed By: #### C BCDIF, CMP, MG1 ####[facility] [address] [place] [address] Potassium [Moles/Vol] 4.8 mmol/L Normal 3.7-5.1 [facility] Comment on above: Performed By: #### C BCDIF, CMP, MG1 ####[facility] [address] [place] [address] Protein [Mass/Vol] 7.3 g/dL Normal 6.3-8.0 [facility] Comment on above: Performed By: #### C BCDIF, CMP, MG1 ####[facility] [address] [place] [address] Sodium [Moles/Vol] 140 mmol/L Normal 136-144 [facility] Comment on above: Performed By: #### C BCDIF, CMP, MG1 ####[facility] [address] [place] [address] Urea nitrogen [Mass/Vol] 9 mg/dL Normal 9-24 [facility] Comment on above: Performed By: #### C BCDIF, CMP, MG1 ####[facility] [address] [place] [address] ED NOTEon 11-08-2020 ED NOTE HNO ID: [id number] Author: Nadia Ayoub RN Service: Nursing Author Type: Registered Nurse Type: ED Notes Filed: 11/08/2020 8:07 PM Note Text: 1st attempt to call report to the floor, unable to take report, will re-attempt. [facility] ED NOTE HNO ID: [id number] Author: Nadia Ayoub RN Service: Nursing Author Type: Registered Nurse Type: ED Notes Filed: 11/08/2020 8:00 PM Note Text: Pt spouse updated on pt status AND POC @ this time. [facility] ED NOTE HNO ID: [id number] Author: Ryann Plummer RN Service: ? Author Type: Registered Nurse Type: ED Notes Filed: 11/08/2020 12:31 PM Note Text: Pt to ED with c/o hypoxia at home, reports SpO2 readings in the low 80s while sitting. Pt reports sx started and he tested positive for covid on 10/30. Pt does report chest pain, difficulty breathing. Hx of asthma. Non vaccinated. Normal [facility] ED PROV NOTEon 11-08-2020 ED PROV NOTE HNO ID: [id number] Author: Lanette Harris DO Service: Emergency Medicine Author Type: Physician Type: ED Provider Notes Filed: 11/08/2020 8:35 PM Note Text: ED Provider Note Patient Name: Moira Hummel SERVICE DATE: 11/08/20 History Patient presents with: Covid19 Concern Hypoxia 20-year-old male with a past medical history of asthma, who tested positive for Covid on 10/30/2020, presents to the ED today for generalized weakness, Covid concern, shortness of breath, and low oxygen levels at home. Patient states that over the last couple days his shortness of breath is worse. He states that today at home he checked his pulse ox and was 81%. He also complained of nausea, vomiting diarrhea. He denies any neck pain or neck stiffness. Denies any other complaints . He is not vaccinated for covid PAST MEDICAL HISTORY Diagnosis Date - PMH - PAST MEDICAL HISTORY OF 05/08/03 normal color vision - PMH - PAST MEDICAL HISTORY OF child is adopted - Respiratory syncytial virus (RSV) age 6 mos - Routine or ritual circumcision - Unspecified asthma(493.90) PAST SURGICAL HISTORY Procedure Laterality Date - PAST SURGICAL HISTORY OF 1998 circumcision - PAST SURGICAL HISTORY OF age 4-5 years tonsils and adenoids removed - Dr Arce FAMILY HISTORY Problem Relation Age of Onset - other (adopted-history unknown) Sister Social History Tobacco Use - Smoking status: Never Smoker - Smokeless tobacco: Never Used Substance and Sexual Activity - Alcohol use: No - Drug use: No - Sexual activity: Never ALLERGIES Allergen Reactions - Cats Intolerance - Enviromental [Other] Review of Systems Constitutional: Positive for fatigue. Negative for chills and fever. HENT: Negative for congestion, drooling, ear pain, mouth sores, sinus pressure, sore throat, tinnitus and trouble swallowing. Eyes: Negative for photophobia and visual disturbance. Respiratory: Positive for cough and shortness of breath. Negative for chest tightness and wheezing. Cardiovascular: Negative for chest pain and palpitations. Gastrointestinal: Positive for diarrhea, nausea and vomiting. Negative for abdominal distention, anal bleeding and constipation. Genitourinary: Negative for dysuria, flank pain and hematuria. Musculoskeletal: Negative for arthralgias, gait problem, neck pain and neck stiffness. Skin: Negative for color change. Neurological: Positive for weakness. Negative for dizziness, seizures and numbness. Psychiatric/Behavioral : Negative for agitation and confusion. The patient is not nervous/anxious. Physical Exam BP 125/73 Pulse 89 Temp (Src) 98.3 (Oral) Resp 22 Wt 280 lb (127.0kg) SpO2 90% Physical Exam Constitutional: Appearance: He is well-developed. HENT: Head: Normocephalic and atraumatic. No raccoon eyes or Purvis's sign. Right Ear: Hearing normal. Left Ear: Hearing normal. Nose: Right Sinus: No maxillary sinus tenderness or frontal sinus tenderness. Left Sinus: No maxillary sinus tenderness or frontal sinus tenderness. Eyes: Conjunctiva/sclera: Conjunctivae normal. Cardiovascular: Rate and Rhythm: Normal rate. Pulmonary: Effort: Pulmonary effort is normal. Abdominal: Palpations: Abdomen is soft. Musculoskeletal: General: Normal range of motion. Cervical back: Normal range of motion and neck supple. Skin: General: Skin is warm and dry. Neurological: Mental Status: He is alert and oriented to person, place, and time. Motor: No tremor, atrophy or seizure activity. Gait: Gait normal. Psychiatric: Behavior: Behavior normal. Diagnostic Testing ED Labs Ordered and Reviewed - No data to display CT CHEST W IVCON PE Final Result IMPRESSION: No CT evidence of pulmonary embolism. Diffuse groundglass opacities with multifocal juxtapleural and parenchymal consolidative and groundglass opacities consistent with multifocal pneumonia. There is likely some atelectasis and volume loss at the right lung base. Viral etiologies considered, possibly Covid pneumonia. 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 Transcribe Date/Time: Nov 08 2020 2:55P Dictated by : LEO DELGADILLO MD This examination was interpreted and the report reviewed and electronically signed by: LEO DELGADILLO MD on Nov 08 2020 3:00PM EST Results for orders placed or performed during the hospital encounter of 11/08/20 COMP METABOLIC PANEL Result Value Ref Range Protein, Total 7.3 6.3 - 8.0 g/dL Albumin 4.6 3.9 - 4.9 g/dL Calcium 9.6 8.5 - 10.2 mg/dL Bilirubin, Total 0.6 0.2 - 1.3 mg/dL Alkaline Phosphatase 56 38 - 113 U/L AST 53 (H) 14 - 40 U/L Glucose 141 (H) 74 - 99 mg/dL BUN 9 9 - 24 mg/dL Creatinine 0.86 0.73 - 1.22 mg/dL Sodium 140 136 - 144 mmol/L Potassium 4.8 3.7 - 5.1 mmol/L Chloride 103 97 - 105 mmol/L CO2 28 22 - 30 mmol/L Anion Gap 9 9 - 18 mmol/L ALT 115 (H) 10 - 54 U/L eGFR- >60 eGFR-All Other Races >60 (more content not included)... Normal [facility] HISTORY PHYSICALon HISTORY PHYSICAL HNO ID: [id number] Author: Juaquin Senior MD Service: Hospital Medicine Author Type: Physician Type: HANDP Filed: 11/08/2020 11:50 PM Note Text: DEPARTMENT OF HOSPITAL MEDICINE HISTORY AND PHYSICAL EXAM SERVICE DATE: 11/08/2020 Code Status: Not on file SERVICE TIME: 8:37 PM Primary Care Physician: Cholo Cheng MD NIGHT AND WEEKEND COVERAGE: [place] COVERAGE: Days: [phone], please page attending physician. Nights: [phone], please page [place] [facility] Night coverage pager [phone]. Subjective CHIEF COMPLAINT: Shortness of breath, cough HPI: This is a 20 year old male with a PMH significant for asthma and prior tobacco/vaping use (quit two weeks ago) who presented to the ED for evaluation of worsening shortness of breath in the context of known COVID-19 infection. Patient states that he had symptom onset and +PCR on 10/30. Symptoms initially consisted of fatigue, myalgias, DELACRUZ, fevers (Tmax 102,8F), chills, nausea, and productive cough of thick brown mucus which was occasionally blood tinged. He has had diminished appetite as well as some vomiting and diarrhea. His pulse ox was reportedly in the mid 80s at home while at rest. He was seen in the ED for mainly GI symptoms on 11/06/20 and given IVF and anti-emetics with improvement in his symptoms. He was given a prescription for reglan which did help slightly with the nausea. He breathing, however, has become more labored since that time which is why he presented again today. He does note some chest tightness/dicomfort with deep breathing and coughing. He has been using his albuterol inhaler at home without significant improvement. He is unvaccinated. He denies palpitations, abdominal pain, urinary symptoms, loss of taste/smell, LE pain or swelling or orthopnea. In the ED patient was hypoxic on RA and titrated to 4L NC. Lab work was notable for transaminitis otherwise mostly unremarkable. CTPE showed no evidence of PE but did note diffuse ground glass opacities consistent with multifocal pneumonia. He was given decadron and remdesivir while in the ED. PAST MEDICAL HISTORY Diagnosis Date - [facility] - PAST MEDICAL HISTORY OF 05/08/03 normal color vision - PMH - PAST MEDICAL HISTORY OF child is adopted - Respiratory syncytial virus (RSV) age 6 mos - Routine or ritual circumcision - Unspecified asthma(493.90) PAST SURGICAL HISTORY Procedure Laterality Date - PAST SURGICAL HISTORY OF 1998 circumcision - PAST SURGICAL HISTORY OF age 4-5 years tonsils and adenoids removed - Dr Arce FAMILY HISTORY Problem Relation Age of Onset - other (adopted-history unknown) Sister Social History Tobacco Use - Smoking status: Never Smoker - Smokeless tobacco: Never Used Substance Use Topics - Alcohol use: No - Drug use: No PRIOR TO ADMISSION MEDICATIONS: (Not in a hospital admission) ALLERGIES Allergen Reactions - Cats Intolerance - Enviromental [Other] REVIEW OF SYSTEM: GENERAL: +Fever +chills +fatigue +malaise. No weight loss HEENT: +DELACRUZ. No changes in hearing or vision, no nose bleeds or other nasal problems NECK: Negative for lumps, goiter, pain and significant neck swelling RESPIRATORY: +Cough +SOB +blood tinged sputum. Negative for hx of COPD CARDIOVASCULAR:+CP Negative for leg swelling, hypertension, CHF or palpitations GI: +Nausea +vomiting +diarrhea. No melena or hematochezia. : No history of dysuria, frequency or incontinence MUSCULOSKELETAL: Negative for joint pain or swelling, back pain or muscle pain SKIN: Negative for lesions, rash, and itching HEMATOLOGY/LYMPHOLOGY: Negative for prolonged bleeding, bruising easily or swollen nodes ENDOCRINE: Negative for cold or heat intolerance, polyuria, polydipsia and goiter NEURO: No history of headaches, syncope, paralysis, seizures or tremors Objective PHYSICAL EXAM: BP 131/80 Pulse 112 Temp (Src) 98.3 (Oral) Resp 18 Wt 280 lb (127.0kg) SpO2 92% O2 Therapy: Nasal Cannula, Liters: 3 Physical Exam Performed: GENERAL: Alert, mildly distressed secondary to coughing fit, cooperative SKIN: Skin color, texture, turgor normal. No rashes or lesions. HEAD/SINUSES: No significant findings. AT/NC EYES: PERRLA, EOMI LUNGS: +Decreased air movement throughout all lung ang with trace expiratory wheezes in the mid and lower lung ang. Poor inspiratory effort secondary to harsh cough. Patient is short of breath with conversation and there is some noted accessory muscle use. Good diaphragmatic excursion. CARDIAC: RRR. Normal S1 and S2; no rubs, murmurs, or gallops ABDOMEN: Abdomen soft, non-tender, non-distended, BS normal, No masses or organomegaly EXTREMITIES: Extremities normal, no deformities, edema, clubbing or skin discoloration. NEURO: AANDO x 3. Cognition and motor function grossly intact. PULSES: 2+ radial, 2+ dorsalis pedis Lines, Drains, and Airways None Reviewed lines and needs to be continued: R (more content not included)... Normal [facility] Hepatic Functn Panelon 11-08 Albumin [Mass/Vol] 4.5 g/dL Normal 3.9-4.9 [facility] Comment on above: Performed By: #### P T, HFP ####[facility] Weqptnnoiw2542 [address] ALP [Catalytic activity/Vol] 58 U/L Normal 38-113 [facility] Comment on above: Performed By: #### P T, HFP ####[facility] Qlblxdohzv5451 [address] ALT [Catalytic activity/Vol] 116 U/L High 10-54 [facility] Comment on above: Performed By: #### P T, HFP ####[facility] Xphtdnqanq1275 [address] AST [Catalytic activity/Vol] 54 U/L High 14-40 [facility] Comment on above: Performed By: #### P T, HFP ####[facility] Pibqyljrxd9596 [address]721[address]5[address] Bilirubin,Conjugated 0.2 mg/dL High <0.2 [facility] Comment on above: Performed By: #### P T, HFP ####[facility] Wkljkwpoez8096 [address] Protein [Mass/Vol] 7.5 g/dL Normal 6.3-8.0 [facility] Comment on above: Performed By: #### P T, HFP ####[facility] Poighhxvve1348 [address] Magnesiumon 11-08-2020 Magnesium [Mass/Vol] 2.3 mg/dL Normal 1.7-2.3 [facility] Comment on above: Performed By: #### C BCDIF, CMP, MG1 ####[facility] [address] [place], [place] [phone] Protimeon 11-08-2020 PT INR 1.1 Normal 0.9-1.3 [facility] Comment on above: Result Comment: Loni min K Antagonist (VKA) Therapeutic Range: INR 2 to 3 (Target INR of 2.5) Note: For patients treated with VKA drugs, such as warfarin, the [employer] 2012 Guideline recommends a therapeutic INR range of 2 to 3 (target INR of 2.5). This recommendation includes high-risk patients with antiphospholipid syndrome with previous arterial or venous thromboembolism, current-generation mechanical or bioprosthetic aortic heart valve replacement. Note: Patients with mechanical aortic valve replacement and additional risk factors for thromboembolic events (atrial fibrillation, previous thromboembolism, LV dysfunction, hypercoagulable conditions) or an older generation mechanical AVR (i.e., ball in-Cage) or any mechanical MVR should have a INR therapeutic range of 2.5 to 3.5 (target INR of 3). Raiza GH, et al. Chest 2012, 141:7S-47S Bharathi RA, et al. [facility] 2017, 70: 252-289 Performed By: #### P T, HFP ####[facility] [address] [place], [place] [id number] PT Sec 11.5 sec Normal 9.7-13.0 [facility] Comment on above: Performed By: #### P T, HFP ####[facility] [address] [place] [id number] CBC W Auto Differential pane l (Bld)on 11-07-2020 Basophils (Bld) [#/Vol] 10*3/uL Normal <0.11 [facility] Comment on above: Order Comment: Speci men Type: BLOOD SPECIMEN Performed By: #### 5 7021-8 #### [facility] CLIA [id number] [address] [facility] [place] [address] [place] Basophils/100 WBC (Bld) 0.0 % Normal [facility] Comment on above: Order Comment: Speci men Type: BLOOD SPECIMEN Performed By: #### 5 7021-8 #### [facility] CLIA [id number] [address] [facility] [place] [address] [place] Differential cell count method Nom (Bld) Auto Normal [facility] Comment on above: Order Comment: Speci men Type: BLOOD SPECIMEN Performed By: #### 5 7021-8 #### [facility] CLIA [id number] [address] [facility] [place] [address] [place] Eosinophils (Bld) [#/Vol] 10*3/uL Normal <0.46 [facility] Comment on above: Order Comment: Speci men Type: BLOOD SPECIMEN Performed By: #### 5 7021-8 #### [facility] CLIA [id number] [address] [facility] [place] [address] [place] Eosinophils/100 WBC (Bld) 0.2 % Normal [facility] Comment on above: Order Comment: Speci men Type: BLOOD SPECIMEN Performed By: #### 5 7021-8 #### [facility] CLIA [id number] [address] [facility] [place] [address] [place] Erythrocyte distribution width (RBC) [Ratio] 13.2 % Normal 11.5-15.0 [facility] Comment on above: Order Comment: Speci men Type: BLOOD SPECIMEN Performed By: #### 5 7021-8 #### [facility] CLIA [id number] [address] [place] [address] [place] Hematocrit (Bld) [Volume fraction] 44.9 % Normal 39.0-51.0 [facility] Comment on above: Order Comment: Speci men Type: BLOOD SPECIMEN Performed By: #### 5 7021-8 #### [facility] CLIA [id number] [address] [place] [address] [place] Hemoglobin (Bld) [Mass/Vol] 15.1 g/dL Normal 13.0-17.0 [facility] Comment on above: Order Comment: Speci men Type: BLOOD SPECIMEN Performed By: #### 5 7021-8 #### [facility] CLIA [id number] [address] [place] [address] [place] Lymphocytes (Bld) [#/Vol] 1.00 10*3/uL Normal 1.00-4.00 [facility] Comment on above: Order Comment: Speci men Type: BLOOD SPECIMEN Performed By: #### 5 7021-8 #### [facility] CLIA [id number] [address] [place] [address] [place] Lymphocytes/100 WBC (Bld) 24.8 % Normal [facility] Comment on above: Order Comment: Speci men Type: BLOOD SPECIMEN Performed By: #### 5 7021-8 #### [facility] CLIA [id number] [address] [place] [address] [place] MCH (RBC) [Entitic mass] 27.9 pg Normal 26.0-34.0 [facility] Comment on above: Order Comment: Speci men Type: BLOOD SPECIMEN Performed By: #### 5 7021-8 #### [facility] CLIA [id number] [address] [place] [address] [place] MCHC (RBC) [Mass/Vol] 33.6 g/dL Normal 30.5-36.0 [facility] Comment on above: Order Comment: Speci men Type: BLOOD SPECIMEN Performed By: #### 5 7021-8 #### [facility] CLIA [id number] [address] [place] [address] [facility] [place] MCV (RBC) [Entitic vol] 82.8 fL Normal 80.0-100.0 [facility] Comment on above: Order Comment: Speci men Type: BLOOD SPECIMEN Performed By: #### 5 7021-8 #### [facility] CLIA [id number] [address] [facility] [place] [address] [facility] Monocytes (Bld) [#/Vol] 0.46 10*3/uL Normal <0.87 [facility] Comment on above: Order Comment: Speci men Type: BLOOD SPECIMEN Performed By: #### 5 7021-8 #### [facility] CLIA [id number] [address] [place] [address] [facility] Monocytes/100 WBC (Bld) 11.4 % Normal [facility] Comment on above: Order Comment: Speci men Type: BLOOD SPECIMEN Performed By: #### 5 7021-8 #### [facility] CLIA [id number] [address] [place] [address] [facility] [place] Neutrophils (Bld) [#/Vol] 2.57 10*3/uL Normal 1.45-7.50 [facility] Comment on above: Order Comment: Speci men Type: BLOOD SPECIMEN Performed By: #### 5 7021-8 #### [facility] CLIA [id number] [address] [facility] [place] [address] [facility] Neutrophils/100 WBC (Bld) 63.6 % Normal [facility] Comment on above: Order Comment: Speci men Type: BLOOD SPECIMEN Performed By: #### 5 7021-8 #### [facility] CLIA [id number] [address] [facility] [place] [address] [place] Platelet mean volume (Bld) [Entitic vol] 11.0 fL Normal 9.0-12.7 [facility] Comment on above: Order Comment: Speci men Type: BLOOD SPECIMEN Performed By: #### 5 7021-8 #### [facility] CLIA [id number] [address] [facility] [place] [address] [facility] Platelets (Bld) [#/Vol] 192 10*3/uL Normal 150-400 [facility] Comment on above: Order Comment: Speci men Type: BLOOD SPECIMEN Performed By: #### 5 7021-8 #### [facility] CLIA [id number] [address] [facility] [address] [facility] RBC (Bld) [#/Vol] 5.42 10*6/uL Normal 4.20-6.00 [facility] Comment on above: Order Comment: Speci men Type: BLOOD SPECIMEN Performed By: #### 5 7021-8 #### [facility] CLIA [id number] [address] [facility] [place] [address] [facility] WBC (Bld) [#/Vol] 4.04 10*3/uL Normal 3.70-11.00 [facility] Comment on above: Order Comment: Speci men Type: BLOOD SPECIMEN Performed By: #### 5 7021-8 #### [facility] CLIA [id number] [address] [facility] [place] [address] [facility] Comprehensive metabolic 2000 panelon 11-07-2020 Albumin [Mass/Vol] 4.4 g/dL Normal 3.9-4.9 [facility] Comment on above: Order Comment: Speci men Type: BLOOD SPECIMEN Performed By: #### 3 040-3, 25595-6 #### [facility] CLIA [id number] [address] [facility] [place] [address] [facility] ALP [Catalytic activity/Vol] 58 U/L Normal 38-113 [facility] Comment on above: Order Comment: Speci men Type: BLOOD SPECIMEN Performed By: #### 3 040-3, 45031-1 #### [facility] CLIA [id number] [address] [facility] [address] [facility] ALT With P-5'-P [Catalytic activity/Vol] 117 U/L High 10-54 [facility] Comment on above: Order Comment: Speci men Type: BLOOD SPECIMEN Performed By: #### 3 040-3, #### [facility] CLIA [id number] [address] [facility] [place] [address] [place] Anion gap [Moles/Vol] 12 mmol/L Normal 9-18 [facility] Comment on above: Order Comment: Speci men Type: BLOOD SPECIMEN Performed By: #### 3 040-3, #### [facility] CLIA [id number] [address] [facility] [place] [address] [place] AST With P-5'-P [Catalytic activity/Vol] 67 U/L High 14-40 [facility] Comment on above: Order Comment: Speci men Type: BLOOD SPECIMEN Performed By: #### 3 -, #### [facility] CLIA [id number] [address] [facility] [place] [address] [place] Bilirubin [Mass/Vol] 0.6 mg/dL Normal 0.2-1.3 [facility] Comment on above: Order Comment: Speci men Type: BLOOD SPECIMEN Performed By: #### 3 3, #### [facility] CLIA [id number] [address] [facility] [place] [address] [place] Calcium [Mass/Vol] 8.9 mg/dL Normal 8.5-10.2 [facility] Comment on above: Order Comment: Speci men Type: BLOOD SPECIMEN Performed By: #### 3 -3, 24852-0 #### [facility] CLIA [id number] [address] [facility] [address] [place] Chloride [Moles/Vol] 99 mmol/L Normal 97-105 [facility] Comment on above: Order Comment: Speci men Type: BLOOD SPECIMEN Performed By: #### 3 -3, 73614-3 #### [facility] CLIA [id number] [address] [facility] [place] [address] [place] CO2 [Moles/Vol] 26 mmol/L Normal 22-30 [facility] Comment on above: Order Comment: Speci men Type: BLOOD SPECIMEN Performed By: #### 3 040-3, 09854-7 #### [facility] CLIA [id number] [address] [place] [address] [place] Creatinine [Mass/Vol] 1.17 mg/dL Normal 0.73-1.22 [facility] Comment on above: Order Comment: Speci men Type: BLOOD SPECIMEN Performed By: #### 3 040-3, 37414-1 #### [facility] CLIA [id number] [address] [place] [address] [facility] [place] GFR/1.73 sq M.predicted among blacks MDRD (S/P/Bld) [Vol rate/Area] mL/min/{1.73_m2} [facility] Comment on above: Order Comment: Speci men Type: BLOOD SPECIMEN Performed By: #### 3 040-, 55105-5 #### [facility] CLIA [id number] [address] [place] [address] [place] GFR/1.73 sq M.predicted among non-blacks MDRD (S/P/Bld) [Vol rate/Area] mL/min/{1.73_m2} [facility] Comment on above: Order Comment: Speci men Type: BLOOD SPECIMEN Result Comment: eGFR (Estimated GFR) Units of measure: mL/min/1.73 meters squared eGFR is derived from the reexpressed MDRD Study equation using the following parameters: serum creatinine, age, gender and race. The creatinine assay has been calibrated to be traceable to IDMS. An eGFR <60 mL/min/1.73m2 for >3 months is consistent with chronic kidney disease. Refer to KDOQI guidelines for clinical interpretation. In patients with unstable renal function, e.g. those with acute kidney injury, the eGFR may not accurately reflect actual GFR. Performed By: #### 3 040-3, 39480-6 #### [facility] CLIA [id number] [address] [place] [address] [place] Glucose [Mass/Vol] 88 mg/dL Normal 74-99 [facility] Comment on above: Order Comment: Speci men Type: BLOOD SPECIMEN Result Comment: The [place] [employer] (ADA) provides guidance for cutoff values for fasting glucose and random glucose. The ADA defines fasting as no caloric intake for at least 8 hours. Fasting plasma glucose results between 100 to 125 mg/dL indicate increased risk for diabetes (prediabetes). Fasting plasma glucose results greater than or equal to 126 mg/dL meet the criteria for diagnosis of diabetes. In the absence of unequivocal hyperglycemia, results should be confirmed by repeat testing. In a patient with classic symptoms of hyperglycemia or hyperglycemic crisis, random plasma glucose results greater than or equal to 200 mg/dL meet the criteria for diagnosis of diabetes. Reference: Standards of Medical Care in Diabetes 2016, [place] [employer]. Diabetes Care. 2016.39(Suppl 1). Performed By: #### 3 040-, #### [facility] CLIA [id number] [address] [place] [address] [place] Potassium [Moles/Vol] 4.0 mmol/L Normal 3.7-5.1 [facility] Comment on above: Order Comment: Speci men Type: BLOOD SPECIMEN Performed By: #### 3 -, #### [facility] CLIA [id number] [address] [place] [address] [place] Protein [Mass/Vol] 7.2 g/dL Normal 6.3-8.0 [facility] Comment on above: Order Comment: Speci men Type: BLOOD SPECIMEN Performed By: #### 3 , #### [facility] CLIA [id number] [address] [place] [address] [place] Sodium [Moles/Vol] 137 mmol/L Normal 136-144 [facility] Comment on above: Order Comment: Speci men Type: BLOOD SPECIMEN Performed By: #### 3 , #### [facility] CLIA [id number] [address] [facility] [place] [address] [place] Urea nitrogen [Mass/Vol] 11 mg/dL Normal 9-24 [facility] Comment on above: Order Comment: Speci men Type: BLOOD SPECIMEN Performed By: #### 3 040-3, 88093-9 #### [facility] CLIA [id number] [address] [facility] [place] [address] [facility] Lipase SerPl-cCncon 11-08-19 21 Lipase [Catalytic activity/Vol] 15 U/L Low 16-61 [facility] Comment on above: Order Comment: Speci men Type: BLOOD SPECIMEN Performed By: #### 3 040-3, 70318-1 #### [facility] CLIA [id number] [address] [facility] [place] [address] [facility] Urinalysis complete panel (U )on 11-07-2020 Bacteria LM.HPF (Urine sed) [#/Area] Few Abnormal None Seen [facility] Comment on above: Order Comment: Speci men Type: URINE SPECIMEN Performed By: #### 2 4356-8 #### [facility] CLIA [id number] [address] [place] [address] [facility] Bilirubin Ql (U) 1+ Abnormal Negative [facility] Comment on above: Order Comment: Speci men Type: URINE SPECIMEN Result Comment: Sugg est correlation with clinical findings and serum bilirubin if clinically indicated. Performed By: #### 2 4356-8 #### [facility] CLIA [id number] [address] [facility] [place] [address] [facility] Clarity (Unsp spec) Clear Normal Clear [facility] Comment on above: Order Comment: Speci men Type: URINE SPECIMEN Performed By: #### 2 4356-8 #### [facility] CLIA [id number] [address] [facility] [place] [address] [facility] Color (U) Yellow Normal Yellow [facility] Comment on above: Order Comment: Speci men Type: URINE SPECIMEN Performed By: #### 2 4356-8 #### [facility] CLIA [id number] [address] [facility] [place] [address] [place] Glucose Test strip (U) [Mass/Vol] Negative Normal Negative [facility] Comment on above: Order Comment: Speci men Type: URINE SPECIMEN Performed By: #### 2 4356-8 #### [facility] CLIA [id number] [address] [facility] [place] [address] [place] Hemoglobin Ql (U) Negative Normal Negative [facility] Comment on above: Order Comment: Speci men Type: URINE SPECIMEN Performed By: #### 2 4356-8 #### [facility] CLIA [id number] [address] [facility] [place] [address] [place] Ketones Ql (U) 2+ Abnormal Negative [facility] Comment on above: Order Comment: Speci men Type: URINE SPECIMEN Performed By: #### 2 4356-8 #### [facility] CLIA [id number] [address] [facility] [address] [place] Leukocyte esterase Test strip Ql (U) Negative Normal Negative [facility] Comment on above: Order Comment: Speci men Type: URINE SPECIMEN Performed By: #### 2 4356-8 #### [facility] CLIA [id number] [address] [facility] [address] [place] Nitrite Ql (U) Negative Normal Negative [facility] Comment on above: Order Comment: Speci men Type: URINE SPECIMEN Performed By: #### 2 4356-8 #### [facility] CLIA [id number] [address] [facility] [address] [place] pH (U) 6.0 [pH] Normal 5.0-8.0 [facility] Comment on above: Order Comment: Speci men Type: URINE SPECIMEN Performed By: #### 2 4356-8 #### [facility] CLIA [id number] [address] [facility] [place] [address] [place] Protein (U) [Mass/Vol] Trace Abnormal Negative [facility] Comment on above: Order Comment: Speci men Type: URINE SPECIMEN Performed By: #### 2 4356-8 #### [facility] CLIA [id number] [address] [place] [address] [facility] RBC LM.HPF (Urine sed) [#/Area] 0-3 /HPF Normal 0-3 /HPF [facility] Comment on above: Order Comment: Speci men Type: URINE SPECIMEN Performed By: #### 2 4356-8 #### [facility] CLIA [id number] [address] [place] [address] [facility] Specific gravity (U) [Rel density] 1.025 Normal 1.005-1.030 [facility] Comment on above: Order Comment: Speci men Type: URINE SPECIMEN Performed By: #### 2 4356-8 #### [facility] CLIA [id number] [address] [place] [address] [facility] Urobilinogen Ql (U) 2.0 EU/dL Abnormal 0.2-1.0 EU/dL [facility] Comment on above: Order Comment: Speci men Type: URINE SPECIMEN Performed By: #### 2 4356-8 #### [facility] CLIA [id number] [address] [place], [place] [address] [place] [address] WBC LM.HPF (Urine sed) [#/Area] 0-5 /HPF Normal 0-5 /HPF [facility] Comment on above: Order Comment: Speci men Type: URINE SPECIMEN Performed By: #### 2 4356-8 #### [facility] CLIA [id number] [address] [place] [address] [facility] CR Chest PA/LATon 06-22-2017 CR Chest PA/LAT Patient Name: MOIRA HUMMEL Diagnostic Radiology Exam Date/Time 06/21/2017 23:41:48 EDT Exam CR Chest PA/LAT Ordering Physician MD CASTRO DAVID Accession Number [id number] CPT4 Codes 81600 () Reason For Exam wheeze Report CHEST X-RAY TWO VIEWS CLINICAL INDICATION: wheeze TECHNIQUE: Frontal and lateral views of the chest. COMPARISON: None FINDINGS: Lungs are clear. No pleural effusion or pneumothorax. No vascular congestion. Heart size normal. IMPRESSION: 1. No acute finding. Report Dictated on Final Dictating Physician: MD CABRERA JOHN R Signed Date and Time: 06/21/2017 11:49 pm Signed by: MD CABRERA JOHN R Transcribed Date and Time: 06/21/2017 11:51 Normal [facility] COVID-19 virus antigen assay SARS-CoV-2 (COVID-19) Ag IA.rapid Ql (Resp) [facility] Work Phone: No Panel Information Influenza Types A,B Direct FA (MELANIA) [facility] Work Phone: SARS-CoV-2 & FLU Antigen (Rapid) [facility] Work Phone: Vital Signs Date Time Vital Sign Value Performing Clinician Faci carroll 12-13-2023 11:22-0400 Body height 184.2 cm [facility] LIABILITY CLAIMS ADJUSTER.JIG BUILDER HELPER Work Phone: [facility] 12-13-2023 11:22-0400 Body mass index (BMI) [Ratio] 40.05 kg/m2 Joey Bryant LIABILITY CLAIMS ADJUSTER.JIG BUILDER HELPER Work Phone: [facility] 12-13-2023 11:22-040 Body weight 135.8 kg Joey Bryant LIABILITY CLAIMS ADJUSTER.JIG BUILDER HELPER Work Phone: [facility] 12-13-2023 11:22-0400 Diastolic blood pressure 75 mm[Hg] Joey Bryant LIABILITY CLAIMS ADJUSTER.JIG BUILDER HELPER Work Phone: [facility] 12-13-2023 11:22-0400 Heart rate 84 /min Joey Bryant LIABILITY CLAIMS ADJUSTER.JIG BUILDER HELPER Work Phone: [facility] 12-13-2023 11:22-0400 Respiratory rate 16 /min Joey Bryant LIABILITY CLAIMS ADJUSTER.JIG BUILDER HELPER Work Phone: [facility] 12-13-2023 11:22-0400 SaO2% (BldA) [Mass fraction] 96 % Joey Bryant LIABILITY CLAIMS ADJUSTER.JIG BUILDER HELPER Work Phone: [facility] 12-13-2023 11:22-0400 Systolic blood pressure 129 mm[Hg] Joey Bryant LIABILITY CLAIMS ADJUSTER.JIG BUILDER HELPER Work Phone: [facility] 10-31-2023 12:51-0400 Body mass index (BMI) [Ratio] 38.93 kg/m2 Uriel Cam MD Work Phone: [facility] 10-31-2023 12:51-0400 Body temperature 98.1 [degF] Uriel Cam MD Work Phone: [facility] 10-31-2023 12:51-0400 Body weight 132 kg Uriel Cam MD Work Phone: [facility] 10-31-2023 12:51-0400 Diastolic blood pressure 77 mm[Hg] Uriel Cam MD Work Phone: [facility] 10-31-2023 12:51-0400 Heart rate 74 /min Uriel Cam MD Work Phone: [facility] 10-31-2023 12:51-0400 Respiratory rate 20 /min Uriel Cam MD Work Phone: [facility] 10-31-2023 12:51-0400 SaO2% (BldA) [Mass fraction] 96 % Uriel Cam MD Work Phone: [facility] 10-31-2023 12:51-0400 Systolic blood pressure 111 mm[Hg] Uriel Cam MD Work Phone: [facility] 03-26-2022 17:46-0500 Heart rate 98 /min [facility] 03-26-2022 17:46-0500 Respiratory rate 17 /min [facility] 03-26-2022 17:46-0500 SaO2% (BldA) [Mass fraction] 98 % [facility] 03-26-2022 17:06-0500 Body temperature 98.5 [degF] [facility] 03-26-2022 17:06-0500 Diastolic blood pressure 68 mm[Hg] [facility] 03-26-2022 17:06-0500 Systolic blood pressure 123 mm[Hg] [facility] 03-26-2022 16:54-0500 Body height 182.88 cm [facility] 03-26-2022 16:54-0500 Body mass index (BMI) [Ratio] 35.9 kg/m2 [facility] 03-26-2022 16:54-0500 Body weight 120.2 kg [facility] 02-26-2022 11:50-0500 Body weight 121.11 kg Joey Bryant LIABILITY CLAIMS ADJUSTER.JIG BUILDER HELPER Work Phone: [facility] 02-26-2022 11:50-0500 Diastolic blood pressure 70 mm[Hg] Joey Bryant LIABILITY CLAIMS ADJUSTER.JIG BUILDER HELPER Work Phone: [facility] 02-26-2022 11:50-0500 Heart rate 80 /min Joey Bryant LIABILITY CLAIMS ADJUSTER.JIG BUILDER HELPER Work Phone: [facility] 02-26-2022 11:50-0500 Respiratory rate 16 /min Joey Bryant LIABILITY CLAIMS ADJUSTER.JIG BUILDER HELPER Work Phone: [facility] 02-26-2022 11:50-0500 Systolic blood pressure 110 mm[Hg] Joey Bryant LIABILITY CLAIMS ADJUSTER.JIG BUILDER HELPER Work Phone: [facility] 01-26-2022 12:10-0500 Body height 184.2 cm Joey Bryant LIABILITY CLAIMS ADJUSTER.JIG BUILDER HELPER Work Phone: [facility] 01-26-2022 12:10-0500 Body weight 122.47 kg Joey Bryant LIABILITY CLAIMS ADJUSTER.JIG BUILDER HELPER Work Phone: [facility] 01-26-2022 12:10-0500 Diastolic blood pressure 82 mm[Hg] Ojey Bryant LIABILITY CLAIMS ADJUSTER.JIG BUILDER HELPER Work Phone: [facility] 01-26-2022 12:10-0500 Heart rate 68 /min Joey Bryant LIABILITY CLAIMS ADJUSTER.JIG BUILDER HELPER Work Phone: [facility] 01-26-2022 12:10-0500 Systolic blood pressure 116 mm[Hg] Joey Bryant APRN.CNS Work Phone: [facility] 01-21-2022 23:29-0500 Body height 182.88 cm [facility] Work Phone: 01-21-2022 23:29-0500 Body mass index (BMI) [Ratio] 35.9 kg/m2 [facility] 01-21-2022 23:29-0500 Body temperature 97 [degF] [facility] 01-21-2022 23:29-0500 Body weight 120.2 kg [facility] 01-21-2022 23:29-0500 Diastolic blood pressure 84 mm[Hg] [facility] 01-21-2022 23:29-0500 Heart rate 75 /min [facility] 01-21-2022 23:29-0500 Respiratory rate 15 /min [facility] 01-21-2022 23:29-0500 SaO2% (BldA) [Mass fraction] 99 % [facility] 01-21-2022 23:29-0500 Systolic blood pressure 133 mm[Hg] [facility] 09-29-2021 03:28-0400 Respiratory rate 18 /min Dr. Domo Cheng Work Phone: [facility] Work Phone: 09-29-2021 03:28-0400 SaO2% (BldA) [Mass fraction] 95 % Dr. Domo Cheng Work Phone: [facility] Work Phone: 09-29-2021 03:03-0400 Heart rate 110 /min Dr. Domo Cheng Work Phone: [facility] Work Phone: 09-29-2021 02:41-0400 Body height 185.[address] Domo Cheng Work Phone: [facility] Work Phone: 09-29-2021 02:41-0400 Body mass index (BMI) [Ratio] 36.6 kg/m2 Dr. Domo Cheng Work Phone: [facility] Work Phone: 09-29-2021 02:41-0400 Body temperature 98.3 [degF] Dr. Domo Cheng Work Phone: [facility] Work Phone: 09-29-2021 02:41-0400 Body weight 125.[address] Domo Cheng Work Phone: [facility] Work Phone: 09-29-2021 02:41-0400 Diastolic blood pressure 85 mm[Hg] Dr. Domo Cheng Work Phone: [facility] Work Phone: 09-29-2021 02:41-0400 Systolic blood pressure 143 mm[Hg] Dr. Domo Cheng Work Phone: [facility] Work Phone: 08-14-2021 08:36-0400 Body height 182.88 cm [facility] Work Phone: 08-14-2021 08:36-0400 Body mass index (BMI) [Ratio] 33.9 kg/m2 [facility] Work Phone: 08-14-2021 08:36-0400 Body temperature 98 [degF] [facility] Work Phone: 08-14-2021 08:36-0400 Body weight 113.39 kg [facility] Work Phone: 08-14-2021 08:36-0400 Diastolic blood pressure 77 mm[Hg] [facility] Work Phone: 08-14-2021 08:36-0400 Heart rate 83 /min [facility] Work Phone: 08-14-2021 08:36-0400 Respiratory rate 18 /min [facility] Work Phone: 08-14-2021 08:36-0400 SaO2% (BldA) [Mass fraction] 95 % [facility] Work Phone: 08-14-2021 08:36-0400 Systolic blood pressure 131 mm[Hg] [facility] Work Phone: 05-22-2021 04:55-0400 Body temperature 98.2 [degF] [facility] Work Phone: 05-22-2021 04:55-0400 Diastolic blood pressure 78 mm[Hg] [facility] Work Phone: 05-22-2021 04:55-0400 Heart rate 74 /min [facility] Work Phone: 05-22-2021 04:55-0400 Respiratory rate 17 /min [facility] Work Phone: 05-22-2021 04:55-0400 SaO2% (BldA) [Mass fraction] 98 % [facility] Work Phone: 05-22-2021 04:55-0400 Systolic blood pressure 121 mm[Hg] [facility] Work Phone: 05-22-2021 02:29-0400 Body height 182.88 cm [facility] Work Phone: 05-22-2021 02:29-0400 Body mass index (BMI) [Ratio] 37.3 kg/m2 [facility] Work Phone: 05-22-2021 02:29-0400 Body weight 125 kg [facility] Work Phone: 03-29-2021 16:12-0500 Body mass index (BMI) [Ratio] 35.2 kg/m2 [facility] Work Phone: 03-29-2021 16:12-0500 Body temperature 97 [degF] [facility] Work Phone: 03-29-2021 16:12-0500 Body weight 117.93 kg [facility] Work Phone: 03-29-2021 16:12-0500 Diastolic blood pressure 88 mm[Hg] [facility] Work Phone: 03-29-2021 16:12-0500 Heart rate 84 /min [facility] Work Phone: 03-29-2021 16:12-0500 Respiratory rate 18 /min [facility] Work Phone: 03-29-2021 16:12-0500 SaO2% (BldA) [Mass fraction] 96 % [facility] Work Phone: 03-29-2021 16:12-0500 Systolic blood pressure 140 mm[Hg] [facility] Work Phone: Encounters Encounter Date Encounter Type Care Provider Facility Start: 03-22-2024 End: 03-22-2024 Emergency department patient visit No Primary Care Physician Facility:[facility] Start: 03-05-2024 End: 03-05-2024 [facility] Start: 12-13-2023 End: 12-13-[address] [facility] Facility:[facility] Start: 12-13-2023 End: 12-13-2023 Office outpatient visit 25 minutes Joey Bryant LIABILITY CLAIMS ADJUSTER.JIG BUILDER HELPER Work Phone: [facility] [place] Comment on above: SOB (shortness of br eath) (Primary Dx); Pneumonia due to COVID-19 virus; History of viral pneumonia; History of asthma; Other fatigue; Wheezing; Nausea and vomiting, unspecified vomiting type; Dyspepsia; Nausea; Chronic cough Start: 12-12-2023 End: 12-12-2023 Telephone encounter Evonne Washington MD Work Phone: [facility] [place] Comment on above: Future Appointment Start: 11-01-2023 End: 11-01-2023 Telephone encounter Courtney Cedeño LIABILITY CLAIMS ADJUSTER.DELIVERY ROUTE DRIVER Work Phone: [facility] Comment on above: Results Start: 10-31-2023 End: 10-31-2023 Office outpatient visit 25 minutes Uriel Cam MD Work Phone: [facility] Comment on above: URI, acute (Primary Dx); Wheezing Start: 10-31-2023 End: 10-31-2023 ambulatory EVONNE WASHINGTON Facility:[facility] Start: 08-10-2023 End: 08-10-2023 Emergency department patient visit Rome Gibbs Facility:[facility] Start: 05-22-2022 End: 05-22-2022 ambulatory Yashira Rhodes LIABILITY CLAIMS ADJUSTER.DELIVERY ROUTE DRIVER Work Phone: Psychiatry Comment on above: NO SHOW (Primary Dx) Start: 05-22-2022 End: 05-22-2022 Telemedicine consultation with patient Yashira Jorge Rhodes APRN.DELIVERY ROUTE DRIVER Work Phone: [facility] Start: 03-26-2022 End: 03-26-2022 Emergency department patient visit [facility] Start: 03-23-2022 End: 03-23-2022 [facility] Yashira Rhodes LIABILITY CLAIMS ADJUSTER.DELIVERY ROUTE DRIVER Work Phone: Psychiatry Comment on above: Encounter for long-t erm (current) use of medications (Primary Dx); ROBERT (generalized anxiety disorder) Start: 02-26-2022 Telephone encounter Evonne schmitt MD Work Phone: [facility] [place] Comment on above: Appointment Start: 02-26-2022 End: 02-26-2022 Patient encounter procedure Joey Bryant LIABILITY CLAIMS ADJUSTER.JIG BUILDER HELPER Work Phone: [facility] [place] Comment on above: History of ADHD (Mariana shay Dx); Depression, unspecified depression type Start: 02-02-2022 Chart abstracting Luz García [facility] Work Phone: Adult Psychology Comment on above: [facility] Work Start: 01-26-2022 Chart abstracting Luz García CRUSHER SCREEN REPAIRER Work Phone: Adult Psychology Comment on above: [facility] Work Start: 01-26-2022 End: 01-26-2022 Patient encounter procedure Joey Bryant APRN.JIG BUILDER HELPER Work Phone: [facility] [place] Comment on above: History of ADHD (Mariana shay Dx); Encounter for immunization; Special screening examination for viral disease; Screening for HIV (human immunodeficiency virus); Erectile dysfunction, unspecified erectile dysfunction type; Routine medical exam; Weight gain; History of chronic eczema Start: 01-26-2022 End: 01-26-2022 Patient encounter status Joey Bryant JIG BUILDER HELPER Work Phone: [facility] [place] Start: 01-21-2022 End: 01-21-2022 [facility] Start: 09-29-2021 End: 09-29-2021 Emergency department patient visit Dr. Domo Cheng [facility] Start: 09-28-2021 [facility] Work Phone: [facility] [place] Comment on above: Patient Question Start: 09-15-2021 End: 09-15-[address] Domo Cheng Work Phone: [facility] Start: 08-22-2021 End: 08-22-[address] Domo Cheng Work Phone: [facility] Start: 08-14-2021 End: 08-14-2021 [facility] Start: 05-22-2021 End: 05-22-2021 Emergency department patient visit [facility] Start: 03-29-2021 End: 03-29-2021 Emergency department patient visit [facility] Start: 06-22-2017 Emergency department patient visit [facility] Procedures Date Procedure Procedure Detail Performing Clinician Start: 09-29-2021 Plain chest X-ray Dr. Clarisa Cheng Work Phone: Start: 08-14-2021 Plain chest X-ray Start: 05-22-2021 Influenza Types A,B Direct FA (MELANIA) Start: 05-22-2021 Plain chest X-ray Start: 04-21-2016 Adult depression screening assessment [facility] Work Phone: Influenza Types A,B Direct FA (MELANIA) SARS-CoV-2 & FLU Ant igen (Rapid) Viral antigen assay Dr. Joana Cheng Work Phone: Plan of Treatment Date Care Activity Detail Author Start: 03-18-2024 End: 03-18-2024 Patient encounter procedure 03/18/2024 4:00 PM EST Office Visit [facility] [place] [address] [place], [place] [id number] Evonne Washington MD [address] [place] [address] 3 month f/u [facility] Comment on above: 3 month f/u Start: 01-14-2024 End: 01-14-2024 Patient encounter procedure 01/14/2024 3:20 PM EST Office Visit [facility] [address] [place] [address] Joey Bryant APRN.JIG BUILDER HELPER [address] [place] [address] follow up [facility] Comment on above: follow up Start: 12-13-2023 End: 03-13-2024 CBC W Auto Differential panel - Blood COMPLETE BLOOD COUNT AND DIFFERENTIAL Lab Routine History of viral pneumonia SOB (shortness of breath) Expected: 12/13/2023, Expires: 03/13/2024 [facility] Comment on above: Expected: 12/13/2023 , Expires: 03/13/2024 Start: 12-13-2023 End: 03-13-2024 Comprehensive metabolic 2000 panel - Serum or Plasma COMPREHENSIVE METABOLIC PANEL Lab Routine History of viral pneumonia SOB (shortness of breath) Expected: 12/13/2023, Expires: 03/13/2024 [facility] Comment on above: Expected: 12/13/2023 , Expires: 03/13/2024 Start: 12-13-2023 End: 03-13-2024 Hemoglobin A1c in Blood HEMOGLOBIN A1C Lab Routine History of viral pneumonia Expected: 12/13/2023, Expires: 03/13/2024 [facility] Comment on above: Expected: 12/13/2023 , Expires: 03/13/2024 Start: 12-13-2023 End: 03-13-2024 Thyrotropin [Units/volume] in Serum or Plasma THYROID STIMULATING HORMONE Lab Routine History of viral pneumonia Expected: 12/13/2023, Expires: 03/13/2024 [facility] Comment on above: Expected: 12/13/2023 , Expires: 03/13/2024 Start: 12-13-2023 End: 12-13-2023 Patient encounter procedure 12/13/2023 11:00 AM EDT Office Visit [facility] [address] [place], [place] [id number] Joey Bryant, LIABILITY CLAIMS ADJUSTER.JIG BUILDER HELPER [address] [place], [place] [phone] Covid in the past, chronic symptoms requested apt to discuss.(see phone encounter) [facility] [place] Comment on above: Covid in the past, c hronic symptoms requested apt to discuss.(see phone encounter) Start: 10-13-2023 Covid-19 Vaccine ( season) Covid-19 Vaccine ( season) [facility] Start: 10-13-2023 Covid-19 Vaccine ( season) Covid-19 Vaccine ( season) [facility] Start: 10-13-2023 Influenza vaccination Influenza Vacc ine (#1) [facility] Start: 01-26-2023 COVID-19 VACCINE (#1) COVID-19 VACCI NE (#1) [facility] Comment on above: Postponed from 11/01 (Declined at this time) Start: 10-12-2022 Influenza vaccination INFLUENZ A (Season Ended) [facility] Start: 08-10-2022 Influenza vaccination INFLUENZA (#1) [facility] Comment on above: Postponed from 10/12 (Declined at this time) Start: 03-26-2022 [facility] [place], [place] Start: 03-23-2022 End: 05-23-2022 TOX SCREEN ROUT UR TOX SCREEN ROUT UR Lab Routine Encounter for long-term (current) use of medications Expected: 03/23/2022, Expires: 05/23/2022 [facility] Work Phone: Comment on above: Expected: 03/23/2022 , Expires: 05/23/2022 Start: 01-26-2022 End: 03-28-2022 CBC W Auto Differential panel - Blood [facility] Work Phone: Comment on above: Expected: 01/26/2022 , Expires: 03/28/2022 Start: 01-26-2022 End: 03-28-2022 Comprehensive metabolic 2000 panel - Serum or Plasma [facility] Work Phone: Comment on above: Expected: 01/26/2022 , Expires: 03/28/2022 Start: 01-26-2022 End: 03-28-2022 Hepatitis C virus Ab [Presence] in Serum [facility] Work Phone: Comment on above: Expected: 01/26/2022 , Expires: 03/28/2022 Start: 01-26-2022 End: 03-28-2022 HIV 1+2 Ab [Presence] in Serum or Plasma by Immunoassay [facility] Work Phone: Comment on above: Expected: 01/26/2022 , Expires: 03/28/2022 Start: 01-26-2022 End: 03-28-2022 TESTOSTERONE, FREE AND TOTAL [facility] Work Phone: Comment on above: Expected: 01/26/2022 , Expires: 03/28/2022 Start: 01-26-2022 End: 03-28-2022 Thyrotropin [Units/volume] in Serum or Plasma [facility] Work Phone: Comment on above: Expected: 01/26/2022 , Expires: 03/28/2022 Start: 10-12-2021 Influenza vaccination INFLUENZA (#1) [facility] Start: 09-29-2021 Viral nucleic acid assay [facility] Work Phone: Start: 09-28-2021 End: 10-12-2021 Influenza virus A and B RNA and SARS-CoV-2 (COVID-19) N gene panel - Respiratory specimen by KALEY with probe detection COVID WITH FLUA+B, ROUTINE Microbiology Routine Suspected COVID-19 virus infection Expected: 09/28/2021, Expires: 10/12/2021 [facility] Work Phone: Comment on above: Expected: 09/28/2021 , Expires: 10/12/2021 Start: 08-14-2021 [facility] Work Phone: Start: 08-13-2019 Urine microalbumin profile [facility] Start: 04-21-2017 Adult depression screening assessment DEPRESSION SCREENING [facility] Start: 2016 Anxiety Screening Anxiety Screening [facility] Start: 2016 HEPATITIS C SCREENING HEPATITIS C SC REENING [facility] Start: 2016 HIV SCREENING HIV SCREENING [facility] Start: 2012 PEDS TO ADULT TRANSI TION ANNUAL ASSESSMENT PEDS TO ADULT TRANSITION ANNUAL ASSESSMENT [facility] Start: 2010 PEDS TO ADULT TRANSI TION INITIAL DISCUSSION PEDS TO ADULT TRANSITION INITIAL DISCUSSION [facility] Start: 2008 MENINGOCOCCAL B: Consider based on risk (1 of 2 - Risk Bexsero 2-dose series) MENINGOCOCCAL B: Consider based on risk (1 of 2 - Risk Bexsero 2-dose series) [facility] Start: 1998 COVID-19 VACCINE (#1) COVID-19 VACCI NE (#1) [facility] Bacteria identified in Unspecified specimen by Respiratory culture RESPIRATORY CULTURE AND STAIN Microbiology Routine SOB (shortness of breath) Chronic cough Ordered: 12/13/2023 [facility] Comment on above: Ordered: 12/13/2023 COVID & INFLUENZA A/ B & RSV PCR, ROUTINE COVID & INFLUENZA A/B & RSV PCR, ROUTINE Microbiology Routine URI, acute Wheezing 10/31/2023 1:58 PM EDT [facility] Work Phone: End: 03-23-2023 ECG COMPLETE ECG COMPLETE ECG Routine Encounter for long-term (current) use of medications 1 Occurrences starting 03/23/2022 until 03/23/2023 [facility] Work Phone: Comment on above: 1 Occurrences starti ng 03/23/2022 until 03/23/2023 Influenza virus A an d B and SARS-CoV-2 (COVID-19) Ag panel - Upper respiratory specim [facility] End: 01-11-2025 NM Stomach Views for gastric emptying solid phase W radionuclide PO NM GASTRIC EMPTYING SOLID Radiology Routine Nausea and vomiting, unspecified vomiting type Dyspepsia Nausea 1 Occurrences starting 12/13/2023 until 01/11/2025 [facility] Comment on above: 1 Occurrences starti ng 12/13/2023 until 01/11/2025 Patient Education [facility] Work Phone: Patient referral [facility] Work Phone: SARS-CoV-2 & FLU Ant igen (Rapid) SARS-CoV-2 & FLU Antigen (Rapid) [facility] End: 01-11-2025 SPIROMETRY WITH DILATOR IF OBSTRUCTED SPIROMETRY WITH DILATOR IF OBSTRUCTED PFT Routine Pneumonia due to COVID-19 virus History of viral pneumonia SOB (shortness of breath) History of asthma 1 Occurrences starting 12/13/2023 until 01/11/2025 [facility] Comment on above: 1 Occurrences starti ng 12/13/2023 until 01/11/2025 End: 01-11-2025 XR Chest PA and Lateral XR CHEST 2V FRONTAL/LAT Radiology Routine Pneumonia due to COVID-19 virus History of viral pneumonia SOB (shortness of breath) History of asthma 1 Occurrences starting 12/13/2023 until 01/11/2025 [facility] Work Phone: Comment on above: 1 Occurrences starti ng 12/13/2023 until 01/11/2025 [facility] Immun[facility] Immunization Date Immunization Notes Care Provider Andreea suh 05-26-2014 meningococcal polysaccharide (groups A, C, Y and W-135) diphtheria toxoid conjugate vaccine (MCV4P) [facility] Work Phone: [facility] Work Phone: 01-15-2012 human papilloma viru s vaccine, quadrivalent [facility] Work Phone: [facility] 01-15-2012 influenza virus vacc ine, unspecified formulation [facility] Work Phone: [facility] 08-13-2011 human papilloma viru s vaccine, quadrivalent [facility] Work Phone: [facility] Work Phone: 06-07-2011 human papilloma viru s vaccine, quadrivalent [facility] Work Phone: [facility] 06-07-2011 varicella virus vaccine [facility] Work Phone: [facility] 12-27-2010 influenza virus vacc ine, unspecified formulation [facility] Work Phone: [facility] 12-20-2009 influenza virus vacc ine, unspecified formulation [facility] Work Phone: [facility] 08-12-2009 Meningococcal, MCV4, unspecified conjugate formulation(groups A, C, Y and W-135) [facility] Work Phone: [facility] Work Phone: 08-12-2009 tetanus toxoid, redu gene diphtheria toxoid, and acellular pertussis vaccine, adsorbed [facility] Work Phone: [facility] Work Phone: 12-21-2008 novel influenza-H1N1 -09, all formulations [facility] Work Phone: [facility] Work Phone: 11-06-2008 influenza virus vacc ine, unspecified formulation [facility] Work Phone: [facility] 12-17-2007 influenza virus vacc ine, unspecified formulation [facility] Work Phone: [facility] Work Phone: 12-09-2006 influenza virus vacc ine, unspecified formulation [facility] Work Phone: [facility] Work Phone: 12-10-2005 influenza virus vacc ine, unspecified formulation [facility] Work Phone: [facility] Work Phone: 12-11-2004 influenza virus vacc ine, unspecified formulation [facility] Work Phone: [facility] Work Phone: 01-05-2004 influenza virus vacc ine, unspecified formulation [facility] Work Phone: [facility] Work Phone: 05-08-2003 diphtheria, tetanus toxoids and acellular pertussis vaccine [facility] Work Phone: [facility] Work Phone: 05-08-2003 measles, mumps and rubella virus vaccine [facility] Work Phone: [facility] Work Phone: 05-08-2003 poliovirus vaccine, inactivated [facility] Work Phone: [facility] Work Phone: 11-21-2002 influenza virus vacc ine, unspecified formulation [facility] Work Phone: [facility] Work Phone: 11-28-2001 influenza virus vacc ine, unspecified formulation [facility] Work Phone: [facility] Work Phone: 12-31-2000 influenza virus vacc ine, unspecified formulation [facility] Work Phone: [facility] Work Phone: 03-11-2000 influenza virus vacc ine, unspecified formulation [facility] Work Phone: [facility] Work Phone: 11-09-1999 pneumococcal conjuga te vaccine, 7 valent [facility] Work Phone: [facility] Work Phone: 08-11-1999 diphtheria, tetanus toxoids and acellular pertussis vaccine [facility] Work Phone: [facility] Work Phone: 08-11-1999 haemophilus influenz ae type b vaccine, HbOC conjugate [facility] Work Phone: [facility] Work Phone: 08-11-1999 pneumococcal conjuga te vaccine, 7 valent [facility] Work Phone: [facility] Work Phone: 05-03-1999 measles, mumps and rubella virus vaccine [facility] Work Phone: [facility] Work Phone: 05-03-1999 poliovirus vaccine, inactivated [facility] Work Phone: [facility] Work Phone: 05-03-1999 varicella virus vaccine [facility] Work Phone: [facility] Work Phone: 02-02-1999 hepatitis B vaccine, pediatric or pediatric/adolescent dosage [facility] Work Phone: [facility] Work Phone: 1998 diphtheria, tetanus toxoids and acellular pertussis vaccine [facility] Work Phone: [facility] Work Phone: 1998 haemophilus influenz ae type b vaccine, HbOC conjugate [facility] Work Phone: [facility] Work Phone: 1998 diphtheria, tetanus toxoids and acellular pertussis vaccine [facility] Work Phone: [facility] Work Phone: 1998 haemophilus influenz ae type b vaccine, HbOC conjugate [facility] Work Phone: [facility] Work Phone: 1998 poliovirus vaccine, inactivated [facility] Work Phone: [facility] Work Phone: 1998 diphtheria, tetanus toxoids and acellular pertussis vaccine [facility] Work Phone: [facility] Work Phone: 1998 haemophilus influenz ae type b vaccine, HbOC conjugate [facility] Work Phone: [facility] Work Phone: 1998 poliovirus vaccine, inactivated [facility] Work Phone: [facility] Work Phone: 1998 hepatitis B vaccine, pediatric or pediatric/adolescent dosage [facility] Work Phone: [facility] Work Phone: 1998 hepatitis B vaccine, pediatric or pediatric/adolescent dosage [facility] Work Phone: [facility] Work Phone: Payers Date Payer Category Payer Unknown [id number] 2024 Unknown [id number] 2023 Self-pay [id number] 2022 Unknown [id number] 2019 Unknown 2018 Medicaid [id number] 2008 Medicaid [id number] Unknown [id number] Unknown [id number] Unknown [id number] Social History Date Type Detail Facility Start: 05-22-2021 End: 03-26-2022 Tobacco smoking status WYIS Unknown if ever smoked [facility] Start: 07-14-2019 With Family [facility] Start: 07-13-2019 Cigarettes [facility] Start: 1998 [facility] Assigned At Male [facility] Start: 06-23-2010 Tobacco smoking stat us NHIS Never smoked tobacco [facility] Work Phone: Start: 06-23-2010 Tobacco use and exposure Smoke less tobacco non-user [facility] Work Phone: Start: 09-27-2021 End: 12-13-2023 Alcohol intake Current non-drinker of alcohol (finding) [facility] Start: 1998 Sex Assigned At Not on file [facility] Start: 01-26-2022 History SDOH Alcohol Frequency 3 [facility] Start: 01-26-2022 History SDOH Social Connections Phone 5 [facility] Start: 01-26-2022 History SDOH Social Connections Get Together 2 [facility] Start: 01-26-2022 History SDOH Social Connections Anabaptist 1 [facility] Start: 01-26-2022 History SDOH Social Connections Meetings 98 [facility] Start: 01-26-2022 History SDOH Social Connections Living 8 [facility] Start: 01-26-2022 History SDOH Physica l Activity DPW 4 [facility] Start: 01-26-2022 History SDOH Physica l Activity MPS 9 [facility] Start: 01-26-2022 End: 10-07-2023 History of Social function [facility] Start: 01-26-2022 End: 10-07-2023 Social connection and isolation panel [facility] Do you belong to any clubs or organizations such as episcopal groups, unions, fraternal or athletic groups, or school groups? No [facility] How often do you att end meetings of the clubs or organizations you belong to? Patient declined [facility] Are you now , , , , never or living with a partner? Living with partner [facility] How often to you hav e a drink containing alcohol? 2-4 times a month [facility] How many standard dr inks containing alcohol do you have on a typical day? 5 or 6 [facility] How often do you hav e 6 or more drinks on 1 occasion? Monthly [facility] Do you feel stress - tense, restless, nervous, or anxious, or unable to sleep at night because your mind is troubled all the time - these days [OSQ] Very much [facility] (I/We) worried nura (my/our) food would run out before (I/we) got money to buy more. Never true [facility] Mental Status Date Assessment Result Facility 03-26-2022 Cognitive function Level Of Cons ciousness Awake;Alert;Appropriate;Follow s Commands [facility] Work Phone: 09-29-2021 Cognitive function Level Of Cons ciousness Awake;Alert;Appropriate [facility] Work Phone: 05-22-2021 Cognitive function Level Of Cons ciousness Awake;Alert;Appropriate;Follow s Commands [facility] Work Phone: Clinical Notes 11-08-2020 to 12-13-2023 Joey Bryant APRN.JIG BUILDER HELPER - 12/13/2023 11:00 AM EDTTelephone Encounter - Joey Bryant APRN.JIG BUILDER HELPER - 12/12/2023 2:25 PM EDTTelephone Encounter - Joey Bryant APRN.JIG BUILDER HELPER - 12/12/2023 2:25 PM EDT Note Date & Type Note Facility 12-13-2023 History of Presen t illness Narrative SUBJECTIVE: Anxiety Screening Never done DTaP,Tdap,Td Vaccine(7 - Td or Tdap) due on 08/13/2019 Influenza Vaccine(1) due on 10/13/2023 Covid-19 Vaccine( - 2023- season) Never done HPI Moira Hummel is a 21 year old male. PMH significant for ACTIVE PROBLEM LIST Unspecified Constipation Other Atopic Dermatitis and Related Conditions Depression Pneumonia Due to Covid-19 Virus Covid-19 Continue with shortness of breath present for years. He did have COVID-pneumonia 2020, noted on CT chest at that time. He notes a history of childhood asthma. He notes shortness of breath at rest and with exertion. Notes shortness of breath is increased with exertion. Does note he is able to work for up to an hour but then feels very short of breath and nausea and stated pushing. He reports occasional cough and wheezing. Notes coughing has increased of late. Cough is productive. Can be brown in color. Some chest discomfort at his lower ribs anteriorly with deep breaths. No sputum production. Non-smoker. No vape use. No recent PFT. No recent use of inhaler. No reported PND orthopnea. He reports feeling fatigued. Feels like he is getting sufficient sleep. States he sleeps like a baby. He states no indication that he has apnea, no noted apnea previously. STOP BANG Questionnaire 1. Snoring Do you snore loudly (louder than talking or loud enough to be heard through closed doors)? NO 2. Tired Do you often feel tired, fatigued, or sleepy during daytime? YES 3. Observed Has anyone observed you stop breathing during your sleep? NO 4. Blood Pressure Do you have or are you being treated for high blood pressure? NO 5. BMI BMI more than 35 kg/m2? YES 6. Age Age over 50 yr old? NO 7. Neck circumference Neck circumference greater than 40 cm? YES 51 cm 8. Gender Gender male? YES * Neck circumference is measured by staff High risk of MARIA ANTONIA: answering yes to three or more items Low risk of MARIA ANTONIA: answering yes to less than three items Hoarseness for several years. Notes decreased appetite and nausea for 3-4 days at a time then resolves. This occurs once or twice a month. Present for years. States not related to anything, helped with drinking fluids like Ensure. Notes helped with reglan in the past. Notes increased with exertion. No EtoH or caffeine related reported. Heartburn: occasional Reflux: no Abdominal pain: no Nausea and Vomiting: two times per week Diarrhea: none reported Constipation: none reported BRBPR: none reported Black tarry: none reported Review of Systems Constitutional: Positive for fatigue. Respiratory: Positive for cough and shortness of breath. Gastrointestinal: Positive for nausea and vomiting. Musculoskeletal: Positive for arthralgias. Objective BP 129/75 Pulse 84 Resp 16 Ht 184.2 cm (6' 0.5) Wt 135.8 kg (299 lb 6.2 oz) SpO2 96% BMI 40.05 kg/m Physical Exam Vitals and nursing note reviewed. Constitutional: Appearance: Normal appearance. HENT: Head: Normocephalic and atraumatic. Eyes: Conjunctiva/sclera: Conjunctivae normal. Neck: Thyroid: No thyromegaly. Vascular: Normal carotid pulses. No JVD. Cardiovascular: Rate and Rhythm: Normal rate and regular rhythm. Pulses: Carotid pulses are 2+ on the right side and 2+ on the left side. Radial pulses are 2+ on the right side and 2+ on the left side. Heart sounds: Normal heart sounds. Pulmonary: Effort: Pulmonary effort is normal. Breath sounds: Normal breath sounds. Chest: Chest wall: Tenderness present. No crepitus. Comments: TTP lower rib order Abdominal: General: Bowel sounds are normal. There is no distension. Palpations: Abdomen is soft. There is no mass. Tenderness: There is no abdominal tenderness. There is no guarding or rebound. Musculoskeletal: Right lower leg: No edema. Left lower leg: No edema. Skin: General: Skin is warm and dry. Neurological: General: No focal deficit present. Mental Status: He is alert and oriented to person, place, and time. ALLERGIES Allergen Reactions Cats Intolerance Ondansetron Intolerance, Other: See Comments heart palpitations Medication triamcinolone acetonide (KENALOG) 0.1 % cream Apply 1 application to affected area three times daily. Apply to affected area .For up to two weeks until clear. May repeat as necessary metoclopramide HCl (REGLAN) 10 mg tablet Take 1 tablet by mouth before meals and at bedtime. Take as needed for nausea and vomiting albuterol HFA (PROVENTIL HFA, VENTOLIN HFA) 90 mcg/actuation inhaler Inhale 2 Puffs as instructed every 4 hours as needed for wheezing/shortness of breath. sildenafil (REVATIO) 20 mg tablet Take 40 mg by mouth as needed. (Patient not taking: Reported on 10/31/2023) PAST MEDICAL HISTORY Diagnosis Date ADHD (attention deficit hyperactivity disorder) Erectile dysfunction PMH - PAST MEDICAL HISTORY OF 05/08/2003 normal color vision PMH - PAST MEDICAL HISTORY OF child is adopted Respiratory syncytial virus (RSV) age 6 mos Routine or ritual circumcision Unspecified asthma(493.90) Social History Tobacco Use Smoking status: Never Smokeless tobacco: Never Substance Use Topics Alcohol use: No Drug use: No ASSESSMENT/PLAN: 1. SOB (shortness of breath) - ICD9: 786.05, ICD10: R06.02 (primary diagnosis) 2. Pneumonia due to COVID-19 virus - ICD9: 480.8, 079.89, ICD10: U07.1, J12.82 3. History of viral pneumonia - ICD9: V12.61, ICD10: Z87.01 History of [address] chest completed showed ground glass opacities, consolidation, multifocal pneumonia. Notes persistent, worsening shortness of breath off breath, cough and rib pain. - CONSULT TO COVID RECOVER CLINIC - XR CHEST 2V FRONTAL/LAT - SPIROMETRY WITH DILATOR IF OBSTRUCTED - CONSULT TO PULM/CRITICAL CARE - COMPREHENSIVE METABOLIC PANEL - COMPLETE BLOOD COUNT AND DIFFERENTIAL - RESPIRATORY CULTURE AND STAIN 4. History of asthma - ICD9: V12.69, ICD10: Z87.09 Resume s needed albuterol. Complete testing and schedule appt with pulmonology - XR CHEST 2V FRONTAL/LAT - SPIROMETRY WITH DILATOR IF OBSTRUCTED - CONSULT TO PULM/CRITICAL CARE 5. Other fatigue - ICD9: 780.79, ICD10: R53.83 Routine labs, consider completing sleep study, deerred for now 6. Wheezing - ICD9: 786.07, ICD10: R06.2 - ALBUTEROL SULFATE HFA 90 MCG/ACTUATION AEROSOL INHALER 7. Nausea and vomiting, unspecified vomiting type - ICD9: 787.01, ICD10: R11.2 8. Dyspepsia - ICD9: 536.8, ICD10: R10.13 - Begin treatment with reglan QID - Referral to Gastroenterology - Follow up in 1 months or sooner if worsening of symptoms - NM GASTRIC EMPTYING SOLID - METOCLOPRAMIDE 10 MG TABLET - CONSULT TO GASTROENTEROLOGY 10. Chronic cough - ICD9: 786.2, ICD10: R05.3 Complete this at next visit if still present. Consider treatment for GERD for chronic cough if not improved. - RESPIRATORY CULTURE AND STAIN 1 mo recheck Joey Bryant APRN.CNS 3 mo follow up MD Joey Farias APRN.CNS Medical Decision Making: Problems: Moderate: 1+ chronic illnesses with change Data: Unique test(s) ordered: 3+ Risk: Moderate: Drug management Medical Decision Making Level: 4 - Moderate documented in this encounter [facility] 12-13-2023 Note HNO ID: [id number] Author: JOEY BRYANT APRN.CNS Service: ? Author Type: Nurse Specialist Type: Progress Notes Filed: 12/13/2023 14:01 Note Text: SUBJECTIVE: Anxiety Screening Never done DTaP,Tdap,Td Vaccine(7 - Td or Tdap) due on 08/13/2019 Influenza Vaccine(1) due on 10/13/2023 Covid-19 Vaccine( - 2023-25 season) Never done HPI Moira Hummel is a 21 year old male. PMH significant for ACTIVE PROBLEM LIST Unspecified Constipation Other Atopic Dermatitis and Related Conditions Depression Pneumonia Due to Covid-19 Virus Covid-19 Continue with shortness of breath present for years. He did have COVID-pneumonia 2020, noted on CT chest at that time. He notes a history of childhood asthma. He notes shortness of breath at rest and with exertion. Notes shortness of breath is increased with exertion. Does note he is able to work for up to an hour but then feels very short of breath and nausea and stated pushing. He reports occasional cough and wheezing. Notes coughing has increased of late. Cough is productive. Can be brown in color. Some chest discomfort at his lower ribs anteriorly with deep breaths. No sputum production. Non-smoker. No vape use. No recent PFT. No recent use of inhaler. No reported PND orthopnea. He reports feeling fatigued. Feels like he is getting sufficient sleep. States he sleeps like a baby. He states no indication that he has apnea, no noted apnea previously. STOP BANG Questionnaire 1. Snoring Do you snore loudly (louder than talking or loud enough to be heard through closed doors)? NO 2. Tired Do you often feel tired, fatigued, or sleepy during daytime? YES 3. Observed Has anyone observed you stop breathing during your sleep? NO 4. Blood Pressure Do you have or are you being treated for high blood pressure? NO 5. BMI BMI more than 35 kg/m2? YES 6. Age Age over 50 yr old? NO 7. Neck circumference Neck circumference greater than 40 cm? YES 51 cm 8. Gender Gender male? YES * Neck circumference is measured by staff High risk of MARIA ANTONIA: answering yes to three or more items Low risk of MARIA ANTONIA: answering yes to less than three items Hoarseness for several years. Notes decreased appetite and nausea for 3-4 days at a time then resolves. This occurs once or twice a month. Present for years. States not related to anything, helped with drinking fluids like Ensure. Notes helped with reglan in the past. Notes increased with exertion. No EtoH or caffeine related reported. Heartburn: occasional Reflux: no Abdominal pain: no Nausea and Vomiting: two times per week Diarrhea: none reported Constipation: none reported BRBPR: none reported Black tarry: none reported Review of Systems Constitutional: Positive for fatigue. Respiratory: Positive for cough and shortness of breath. Gastrointestinal: Positive for nausea and vomiting. Musculoskeletal: Positive for arthralgias. Objective BP 129/75 Pulse 84 Resp 16 Ht 184.2 cm (6' 0.5) Wt 135.8 kg (299 lb 6.2 oz) SpO2 96% BMI 40.05 kg/m? Physical Exam Vitals and nursing note reviewed. Constitutional: Appearance: Normal appearance. HENT: Head: Normocephalic and atraumatic. Eyes: Conjunctiva/sclera: Conjunctivae normal. Neck: Thyroid: No thyromegaly. Vascular: Normal carotid pulses. No JVD. Cardiovascular: Rate and Rhythm: Normal rate and regular rhythm. Pulses: Carotid pulses are 2+ on the right side and 2+ on the left side. Radial pulses are 2+ on the right side and 2+ on the left side. Heart sounds: Normal heart sounds. Pulmonary: Effort: Pulmonary effort is normal. Breath sounds: Normal breath sounds. Chest: Chest wall: Tenderness present. No crepitus. Comments: TTP lower rib order Abdominal: General: Bowel sounds are normal. There is no distension. Palpations: Abdomen is soft. There is no mass. Tenderness: There is no abdominal tenderness. There is no guarding or rebound. Musculoskeletal: Right lower leg: No edema. Left lower leg: No edema. Skin: General: Skin is warm and dry. Neurological: General: No focal deficit present. Mental Status: He is alert and oriented to person, place, and time. ALLERGIES Allergen Reactions Cats Intolerance Ondansetron Intolerance, Other: See Comments heart palpitations Medication triamcinolone acetonide (KENALOG) 0.1 % cream Apply 1 application to affected area three times daily. Apply to affected area .For up to two weeks until clear. May repeat as necessary metoclopramide HCl (REGLAN) 10 mg tablet Take 1 tablet by mouth before meals and at bedtime. Take as needed for nausea and vomiting albuterol HFA (PROVENTIL HFA, VENTOLIN HFA) 90 mcg/actuation inhaler Inhale 2 Puffs as instructed every 4 hours as needed for wheezing/shortness of breath. sildenafil (REVATIO) 20 mg tablet Take 40 mg by mouth as needed. (Patient not taking: Reported on 10/31/2023) PAST (more content not included)... [facility] 12-12-2023 Telephone encounter Note Has OV tomorrow. [facility] 12-12-2023 Miscellaneous Notes Has OV tomorrow. Pt called in to get an apt in the office. Pt has had COVID in the past and has chronic symptoms persisting for over a year or so. SX: dull constant pain in chest rib area. Takes a deep breath and gets sharp pain, chronic cough, phlegm dark in color, frequent respiratory infections 9 to 10 in the last year to year and half, chronic fatigue, significant loss of appetite. Does not eat like he used to. Goes 3 to 5 days where he may drink a protein drink. May vomited of and on. Gets general weakness comes an goes. Pt scheduled for apt 12-13-23 with provider/team. Marie Olivares LPN documented in this encounter [facility] 12-12-2023 Telephone encounter Note Pt called in to get an apt in the office. Pt has had COVID in the past and has chronic symptoms persisting for over a year or so. SX: dull constant pain in chest rib area. Takes a deep breath and gets sharp pain, chronic cough, phlegm dark in color, frequent respiratory infections 9 to 10 in the last year to year and half, chronic fatigue, significant loss of appetite. Does not eat like he used to. Goes 3 to 5 days where he may drink a protein drink. May vomited of and on. Gets general weakness comes an goes. Pt scheduled for apt 12-13-23 with provider/team. Marie Olivares LPN [facility] 11-01-2023 Telephone encounter Note Pt returned call and given provider's message below with verbalized understanding. [facility] 11-01-2023 Miscellaneous Notes Pt returned call and given provider's message below with verbalized understanding. Left VM instructing patient to return call to receive results. Concetta Mann MA You tested negative for COVID, Influenza, and RSV. Please contact us if your symptoms are worsening or not improving. Please advise documented in this encounter [facility] 11-01-2023 Telephone encounter Note Left VM instructing patient to return call to receive results. Concetta Mann MA [facility] 11-01-2023 Telephone encounter Note You tested negative for COVID, Influenza, and RSV. Please contact us if your symptoms are worsening or not improving. Please advise [facility] Work Phone: 10-31-2023 Note HNO ID: [id number] Author: URIEL CAM MD Service: ? Author Type: Physician Type: Progress Notes Filed: 10/31/2023 13:19 Note Text: Patient presents with: Cough: Chest congestion, headache, body aches, SOB, chest tightness x 1 day HPI: Feeling sick since last night. Exposed to sick coworkers. Positive symptoms: Cough, Shortness of breath, Chest tightness, Body Aches, Headache, Nasal Congestion, Rhinorrhea, Chills, Malaise, Diarrhea, Negative symptoms: Vomiting, OTC: none MEDICATIONS: Current Outpatient Medications Medication Sig triamcinolone acetonide (KENALOG) 0.1 % cream Apply 1 application to affected area three times daily. Apply to affected area .For up to two weeks until clear. May repeat as necessary venlafaxine (EFFEXOR) 50 mg tablet Take 0.5 tablets by mouth daily with breakfast for 7 days, THEN 1 tablet daily with breakfast. sildenafil (REVATIO) 20 mg tablet Take 40 mg by mouth as needed. (Patient not taking: Reported on 10/31/2023) No current facility-administered medications for this visit. ALLERGIES: ALLERGIES Allergen Reactions Cats Intolerance Enviromental [Other] Ondansetron Intolerance, Other: See Comments heart palpitations VITALS: BP 111/77 Pulse 74 Temp 36.7 ?C (98.1 ?F) Resp 20 Wt 132 kg (291 lb 0.1 oz) SpO2 96% BMI 38.93 kg/m? PHYSICAL EXAM: GEN: mildly ill appearing HEENT: PERRL, EOMI, conjunctiva clear Ears: canals clear. TMs without erythema, bulge, or effusion Sinuses: non-tender frontal sinus, non-tender maxillary sinuses Throat: moist mucous membranes, mild erythema, no exudate Neck: supple, no thyromegaly, no lymphadenopathy HEART: regular rate and rhythm, no murmurs LUNGS: bilateral wheezes and diminished air exchange, no increased WOB Latest Ref Rng 01/26/2022 eGFR >=60 mL/min/1.73m? 121 ASSESSMENT/PLAN: 1. URI, acute - ICD9: 465.9, ICD10: J06.9 (primary diagnosis) - Discussed viral etiology and rationale for treatment. - Symptomatic treatment with prn analgesia - Supportive care with fluids and rest - COVID AND INFLUENZA A/B AND RSV PCR, ROUTINE 2. Wheezing - ICD9: 786.07, ICD10: R06.2 - ALBUTEROL SULFATE HFA 90 MCG/ACTUATION AEROSOL INHALER - PREDNISONE 10 MG TABLET - COVID AND INFLUENZA A/B AND RSV PCR, ROUTINE Uriel Cam MD [facility] 10-31-2023 History of Presen t illness Narrative Patient presents with: Cough: Chest congestion, headache, body aches, SOB, chest tightness x 1 day HPI: Feeling sick since last night. Exposed to sick coworkers. Positive symptoms: Cough, Shortness of breath, Chest tightness, Body Aches, Headache, Nasal Congestion, Rhinorrhea, Chills, Malaise, Diarrhea, Negative symptoms: Vomiting, OTC: none MEDICATIONS: Current Outpatient Medications Medication Sig triamcinolone acetonide (KENALOG) 0.1 % cream Apply 1 application to affected area three times daily. Apply to affected area .For up to two weeks until clear. May repeat as necessary venlafaxine (EFFEXOR) 50 mg tablet Take 0.5 tablets by mouth daily with breakfast for 7 days, THEN 1 tablet daily with breakfast. sildenafil (REVATIO) 20 mg tablet Take 40 mg by mouth as needed. (Patient not taking: Reported on 10/31/2023) No current facility-administered medications for this visit. ALLERGIES: ALLERGIES Allergen Reactions Cats Intolerance Enviromental [Other] Ondansetron Intolerance, Other: See Comments heart palpitations VITALS: BP 111/77 Pulse 74 Temp 36.7 C (98.1 F) Resp 20 Wt 132 kg (291 lb 0.1 oz) SpO2 96% BMI 38.93 kg/m PHYSICAL EXAM: GEN: mildly ill appearing HEENT: PERRL, EOMI, conjunctiva clear Ears: canals clear. TMs without erythema, bulge, or effusion Sinuses: non-tender frontal sinus, non-tender maxillary sinuses Throat: moist mucous membranes, mild erythema, no exudate Neck: supple, no thyromegaly, no lymphadenopathy HEART: regular rate and rhythm, no murmurs LUNGS: bilateral wheezes and diminished air exchange, no increased WOB Latest Ref Rng 01/26/2022 eGFR >=60 mL/min/1.73m 121 ASSESSMENT/PLAN: 1. URI, acute - ICD9: 465.9, ICD10: J06.9 (primary diagnosis) - Discussed viral etiology and rationale for treatment. - Symptomatic treatment with prn analgesia - Supportive care with fluids and rest - COVID & INFLUENZA A/B & RSV PCR, ROUTINE 2. Wheezing - ICD9: 786.07, ICD10: R06.2 - ALBUTEROL SULFATE HFA 90 MCG/ACTUATION AEROSOL INHALER - PREDNISONE 10 MG TABLET - COVID & INFLUENZA A/B & RSV PCR, ROUTINE Uriel Cam MD documented in this encounter [facility] 05-22-2022 History of Presen t illness Narrative Patient did not log in for his virtual appointment with the provider today. documented in this encounter [facility] 03-26-2022 Discharge summary Note Date/Time March 26, 2022 5:13pm [facility] Medical Records Department [address] [place] [address] Emergency Department Summary 03/26/22 MR#: [id number] Acct: [id number] Name: MOIRA HUMMEL Rep #:[id number] : 2000 21 From: Toney Johnson MD PCP: WALLACE Zuluaga Status:PRE ER Location: ED HPI History of Present Illness Chief Complaint: General Illness Narrative Narrative: Patient presents with cough congestion myalgias and fevers since yesterday. He has had some diarrhea and couple episodes of vomiting he has sick contacts, quite a few people at his job have COVID. [facility] Medical History (Updated 03/26/22 @ 17:[address] Toney Johnson MD) Asthma Costochondritis Opiate addiction Home Medications acetaminophen 650 mg tablet,extended release (Tylenol 8 Hour) 650 mg PO Q8H PRN fever #20 tabs 10/30/20 [Rx Last Taken Unknown] amoxicillin 500 mg tablet 500 mg PO TID #30 tabs 01/21/22 [Rx Last Taken Unknown] ibuprofen 600 mg tablet 600 mg PO Q8H PRN PRN pain #20 TABLETS 01/21/22 [Rx Last Taken Unknown] metoclopramide HCl 10 mg tablet (Reglan) 10 mg PO Q6H PRN nausea and vomiting #10 tabs 03/26/22 [Rx Last Taken Unknown] naproxen 500 mg tablet (Naprosyn) 500 mg PO BID #20 tabs 03/26/22 [Rx Last Taken Unknown] Allergy/AdvReac Type Severity Reaction Status Date / Time ondansetron [From Zofran] AdvReac Other Verified 03/26/22 16:57 Surgical History (Updated 03/26/22 @ 17:07 by Rhonda Jordan) History of tonsillectomy Social History Smoking Status: Former smoker ROS ROS ED ROS Narrative Review of systems: All systems negative except as indicated General: Subjective fevers Eyes: Upper airway congestion ENT: No upper airway congestion, normal voice Neck: No neck pain Cardiovascular: No chest pain Respiratory: No shortness of breath or cough Gastrointestinal: No abdominal pain. Some nausea, vomiting and diarrhea. Genitourinary: No dysuria Musculoskeletal: Generalized myalgias Skin: No rash Neurological: No memory loss, confusion or any focal weakness EXAM Physical Exam Narrative Exam Narrative: Physical exam General: Well nourished, Well developed, No Acute Distress Head: Normocephalic, Atraumatic Eyes: Conjunctiva not pale ENT: Some upper airway congestion, moist mucous membranes Neck: Supple, Nontender, No lymphadenopathy Cardiovascular: Regular rate, Regular rhythm Respiratory: No distress, CTA bilaterally Abdomen: Soft, Nontender, Nondistended Back: Nontender, Normal Inspection. Negative for: CVA tenderness Extremities: Nontender, No edema Skin: Normal color, No rash Neurological: Alert, Normal Strength, Normal Sensation Psychological: Normal affect Const Vital Signs: 03/26/22 16:54 Temperature 98.5 F Temperature Source Temporal Pulse Rate 107 H Respiratory Rate 18 Blood Pressure 123/68 H Blood Pressure Mean 86 Pulse Ox 99 Oxygen Delivery Method Room Air MDM MDM MDM Narrative Medical decision making narrative: Patient has upper airway congestion rhinorrhea, he has myalgias, this is likely a viral etiology, he has been exposed to COVID and we will check a COVID and influenza. Otherwise he received Toradol and Reglan in the emergency department, he appears well he is slightly tachycardic but is tolerating p.o. fluids and has moist membranes I do not believe IV fluids are needed at this time. His lungs are clear at this time and he is not in respiratory distress his pulse ox is normal therefore I do not believe we need a chest x-ray patient will be discharged with follow-up and symptomatic treatment. Discharge Plan Triage Chief Complaint: General Illness ED Provider: Toney Johnson Dx/Rx/DC Orders Clinical Impression: Acute viral syndrome, Nausea & vomiting, Myalgia Instructions: ED Viral Syndrome (Adult) Prescriptions: New metoclopramide HCl [Reglan] 10 mg tablet 10 mg PO Q6H PRN (Reason: nausea and vomiting) Qty: 10 0RF naproxen [Naprosyn] 500 mg tablet 500 mg PO BID Qty: 20 0RF No Action acetaminophen [Tylenol 8 Hour] 650 mg tablet extended release 650 mg PO Q8H PRN (Reason: fever) Qty: 20 0RF amoxicillin 500 MG tablet 500 mg PO TID Qty: 30 0RF ibuprofen 600 MG tablet 600 mg PO Q8H PRN PRN (Reason: pain) Qty: 20 0RF Primary Care Provider: Joey Bryant NP Referrals: Joey Bryant TIPPLE BOSS, TIPPLE BOSS-C [Primary Care Provider] - 3-5 Days Disposition Disposition: Home, Self Care What to do if you have Problems For any increased pain, shortness of breath, bleeding, nausea or vomiting, chestpain, or any unexpected problems, contact your Primary Care Provider. Call [facility] ([phone]) or report to the closest Emergency Room. Call 911 if necessary. 03/26/224 <Electronically signed by Toney Johnosn MD> Cosigner Signature (if applicable): CC: TIPPLE BOSS-Clarisa Bryant ~ Signed [facility] Work Phone: [phone]) 661-679202-10-2023 Instructions* Patient Instructions* Yashira Rhodes APRN.DELIVERY ROUTE DRIVER - 03/23/2022 2:09 PM EST Peter Bean, It was good to meet and talk with you today. Below is a summary of the plan that we discussed during your appointment for reference. Of course, if you have any questions or concerns do not hesitate to reach out to me via a message or call. Yashira Cullen APRN.CNP PLAN AND FOLLOW UP: YOU SHOULD SEEK IMMEDIATE MEDICAL ATTENTION AT THE NEAREST EMERGENCY DEPARTMENT OR BY CALLING 911, IF ANY OF THE FOLLOWING OCCURS: - New or worsening thoughts of harming yourself (suicidal thoughts) or others (homicidal thoughts) - Not feeling safe at home or worrying about your ability to remain safe at home If you are having thoughts of harming yourself or others, then you can: - Call the National Suicide Hotline at 5-202-YVCHSVX ( ) or 9-835-310-TALK (9868) - Text 4HOPE to 744603 Medication Update: - Venlafaxine 50 mg - take 1/2 tablet every morning with breakfast for 7 days, then take 1 tablet once every morning after that. Lab work: Complete urine lab work Other: Schedule an appointment for EKG prior to the next appointment. Next appointment: --Schedule in 4 weeks or sooner if needed -- You may call the department appointment line at [phone] to schedule your appointment. -- Please call my nurse Malaika at [phone] or send me a message in Free[employer] with any questions or concerns between appointments. [facility] History of Present illness Narrative* Yashira Rhodes APRN.CNP - 03/23/2022 1:05 PM EST Images from the original note were not included. PSYC NEW - PSYCHIATRIC ASSESSMENT Patient was seen for an initial evaluation. With the patient consent, visit was performed virtually. All information is from Patient report except when noted. This evaluation is NOT intended for forensic, disability or child custody purposes. AGE: [age] year old RACE: White MARITAL STATUS: In a relationship. Been together for 10 months. He has 2 daughters who are 5 and 3. 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 He was going to school for computer science before. REFERRAL SOURCE: PCP - Joey Bryant APRN CHIEF COMPLAINT: Hoping to manage what I would assume is ADHD. HPI: Today Moira shares that he has been struggling with executive functioning to do things. He feels motivated to do things. He finds it difficult to complete tasks. He hard time focusing on single things. He needs some additional stimulus to focus. He takes a few figiting devices to work with him tostay on task. He finds it hard for him to focus on extensive conversations. He has a hard remembering things thathe was told in the short term. Shares that when he was 8 years old, he presented with symptoms of ADHD. He was seen at a pediatric office in [place] and was medicated for ADHD. He took Adderall. At his mother's request, the provider took him off Adderall at the age of 14. Shares that mom took him off the medication due to the stigma. Shares that when he was in 9th grade, his grades were better and then they fell slowly. Struggled most with college classes. Was taking classes online through [employer]. He was only able to complete classes for a year and half. He has tried Zoloft in the past. He noticed that he struggled more to focus and became irritable. He thinks he might have been on Lexapro and felt that it didn't treat his symptoms as well. He didn'tnotice any improvement in his executive functioning. The last medication that was attempted was Wellbutrin in 2020. He noticed some minor improvement in some of his symptoms. [employer] that it was easier for him get tasks completed. Noticed more anxiety and irritability after being on it for 2 weeks. Sleep: It is hard for him to lay down as he feels like he has not done enough. Trouble falling asleep. He gets between 6 to 10 hours of sleep. Interest: diminished. Sees friends on weekly basis Guilt: none Energy: good Concentration: unable to focus Appetite: tends to fluctuate. Sometimes he gets caught up doing something and realizes that he has not eaten all day. Psychomotor Activity: psychomotor activity was WNL. Suicide: None Phobias: no irrational fears Memory: Fair, custodial. Horrible short term memory. Noticed it getting worse in highschool. Anxiety: mild Obsessions: none Compulsions: none Bishop: Denies any symptoms of bishop PTSD: The patient has experienced/witnessed trauma that threatened his or her integrity, response: fear/helpless. - He has had 2 still births and 2 earlier miscarriages. - He had a very messy and unintended divorce. October of 2020. He has split custody ofhis daughters. Self Mutilation: Denies PAST MEDICAL HISTORY Diagnosis Date ADHD (attention deficit hyperactivity disorder) Erectile dysfunction PMH - PAST MEDICAL HISTORY OF 05/08/2003 normal color vision PMH - PAST MEDICAL HISTORY OF child is adopted Respiratory syncytial virus (RSV) age 6 mos Routine or ritual circumcision Unspecified asthma(493.90) PAST SURGICAL HISTORY Procedure Laterality Date PAST SURGICAL HISTORY OF 1998 circumcision PAST SURGICAL HISTORY OF age 4-5 years tonsils and adenoids removed - Dr Arce Current Outpatient Medications Medication Sig Dispense Refill sildenafil (REVATIO) 20 mg tablet Take 40 mg by mouth as needed. triamcinolone acetonide (KENALOG) 0.1 % cream Apply 1 application to affected area three times daily. Apply to affected area .For up to two weeks until clear. May repeat as necessary 15 g 2 No current facility-administered medications for this visit. VITAL SIGNS: There were no vitals filed for this visit. ROS: All other systems negative. PSYCHIATRIC HISTORY: Prior Diagnosis: Depression, Anxiety. Per patient report ADHD (Nothing available in records). Prior Provider: Yes, but cannot recall Therapist: Followed at [facility] in 2019. He has been to counseling center for therapy but did not notice benefit from it. Current Product Manager [employer]: No Last Hospitalization: Denies hospitalization. ECT: No Previous Discontinued Psychiatric Med Trials: See HPI SUBSTANCE USE HISTORY: Nicotine: None currently. He quit a couple months ago. Caffeine: None Alcohol: drinks socially. Drinks 3 or 4 drinks (beer) when he drinks Marijuana: Has tried it when he was younger. Has not smoked in 4 years. Cocaine: No history of use or dependence Opiods: No history of use or dependence SPIRITUALITY: None PFSH: Moira Hummel is the youngest of 2 siblings. Also has step-sister. He gets along better with step sister than biological sister. The patient does not know where he was born as he was adopted and raised in [place], [place]. He completed High school, Some college. He described his childhood as mostly great. Parents were very busy with their careers. Mother is a executive assistant to general counsel for a [employer]. Amy steen is a paper mill superintendent at a 9+. He felt that mother babied him and he feels that this has strained their relationship. He feels like he is not able to make his decisions when he is around her. Relationship with father is better as an adult. The patient lives with girlfriend. His daughters visit. Service: None Legal: Only some disorderly conduct around 16 and 17. He shares that he got in trouble protecting his sister. FAMILY PSYCHIATRIC HISTORY: Adopted and does not know psychiatric or medical history. Sister - Depression PATIENT DATA: Generalized Anxiety Disorder Scale (ROBERT-7) ROBERT - 7 SCORES 03/23/2022 ROBERT-7 Score 9 (0-4) minimal anxiety, (5-9) mild anxiety, (10-14) moderate anxiety, (15-21) severe anxiety Patient Health Questionnaire (PHQ-9) PHQ-9 01/26/2022 03/23/2022 Score 13 14 (0-4) minimal depression, (5-9) mild depression, (10-14) moderate depression, (15-19) moderately severe depression, (20-27) severe depression PROMIS Global Health PROMIS Global Health - (T-Scores - the mean of general population = 50. Five points is a clinicallymeaningful difference.) 01/26/2022 Physical T-Score 54.1 Mental T-Score 28.4 MENTAL STATUS EXAMINATION: Appearance: Casually dressed Behavior: Behaves appropriately during the encounter Social relatedness: Euthymic Speech/Language: The patient demonstrates appropriate tone, prosody, miguel, phonetics, and syntax Mood: sad Affect: Full and appropriate to topic Orientation: Person, Place, Time and Situation Associations: Intact and linear Hallucinations: None Delusions: None Suicidal Ideation: No suicidal ideation, intent or plan. Homicidal Ideation: No homicidal ideation, intent or plan. Insight: Appropriate Judgment: Appropriate MINI-MENTAL STATUS EXAMINATION: Orientation: year, season, date, month, state, and country 11/20 Registrative: Able to repeat 3 objects on the first try /3 Attention & Calculation: Able to count backward from 100 by serial 7's Able to spell world backwards 06/15 Recall: Able to recall 3 objects /3 Language: Name pen/pencil (1pt) Name watch (1pt) Repeat No ifs, ands, or buts. (1pt) 10/20 TOTAL MMSE SCORE 28/30 DIAGNOSIS: PRIMARY: Anxiety Disorder Generalized Anxiety Disorder SECONDARY: ADHD, per patient report Other : None GAF: -60-51 Moderate symptoms or moderate difficulty in social, occupational or school functioning. PLAN: 1. Start Venlafaxine to address his anxiety symptoms and difficulty focusing and concentrating. 2. Complete urine tox screen and EKG. 3. Obtain records from [facility]. 4. Encouraged to have mother present at the next visit to provide collateral information regarding ADHD. Medication Update: - Venlafaxine 50 mg - take 1/2 tablet every morning with breakfast for 7 days, then take 1 tablet once every morning after that. The effects and side effects of Venlafaxine were reviewed in detail with the patient. He is in agreement with the treatment plan and aware to reach out with any questions, concerns, or worsening of symptoms prior to the next appointment. DISPOSITION: Follow up with this provider in 4 weeks I spent a total of 60 minutes on the date of the service which included preparing to see the patient, [id number] patient care, completing clinical documentation, obtaining and/or reviewing separately obtained history, counseling and educating the patient/family/caregiver, ordering medications, penelope ts, or procedures, communicating with other HCPs (not separately reported), independently interpreting results (not separately reported), and communicating results to the patient/family/caregiver. ADD ON PSYCHOTHERAPY CODE : No SIGNATURE: Yashira Rhodes APRN.CNP PATIENT NAME: Moira Humeml DATE: March 23, 2022 TIME: 1:05 PM PAGER : documented in this encounterTrihealth [facility]01-16-2023 Miscellaneous Notes* Telephone Encounter - Malaika Garzon LPN - 02/26/2022 12:38 PM EST Spoke to patient and scheduled. * Telephone Encounter - Hector Beck - 02/26/2022 12:26 PM EST Patient Moira needs cleared to see Dr. Yashira Rhodes for psychiatry. documented in this encounterTrihealth Bethes[facility]01-16-2023 Instructions* Patient Instructions* Joey Bryant APRN.HARRISON - 02/26/2022 12:11 PM EST OSMIN Taylor, [facility] [phone] documented in this encounterTrihealth Bethes[facility] Hospital01-16-2023 History of Present illness Narrative* Joey Bryant APRN.HARRISON - 02/26/2022 11:40 AM EST SUBJECTIVE: MENINGOCOCCAL B: Consider based on risk(1 of 2 - Risk Bexsero 2-dose series) Never done DTAP,TDAP,TD(7 - Td or Tdap) due on 08/13/2019 HPI Moira Hummel is a 21 year old male. PMH significant for ACTIVE PROBLEM LIST Unspecified Constipation Other Atopic Dermatitis and Related Conditions Depression Pneumonia Due to Covid-19 Virus Covid-19 HPI excerpted from previous visit: Presents today to establish care with Dr Washington Previous PCP:Cholo Cheng MD[address] [address] [facility] [address] Last seen: about 2 years Labwork: no ER/Hospitalization: [facility] for wisdom teeth, recent Outside records:no Adopted, no family history is known. Also requesting psychiatry referral for ADHD. Notes took medication as a child for ADHD, not sure what it was. States no anxiety or depression today Reports Difficulty focusing, with executive function. Some forgetfulness. Subsequently states he was seen at [facility] as adult. States Wellbutrin did not work well at all. Adderral has helped in the past, nothing else was helpful. States was last seen about one year ago. Stated would prefer to see someone that would be able to prescribe adderall if needed, not counseling center. Seen at [facility] ER for wisdom teeth problem 01/22/2022. Treated with amoxicillin and ibuprofen. Thinks he has low testosterone. Has history of ED. Seen by urology: states no Eats well exercises and can not loose weight. Hair loss is present. States he has eczema and would like topical treatment. Present on feet now, but appears in other locations. Returns to clinic today noting that he did not receive information from behavioral health as he didnot check my chart. Notes he would still like to see someone regarding ADHD. Review of Systems Constitutional: Negative for unexpected weight change. Skin: Positive for rash. Psychiatric/Behavioral: Positive for decreased concentration. Objective BP 110/70 Pulse 80 Resp 16 Wt 121.1 kg (267 lb) BMI 35.71 kg/m Physical Exam Vitals and nursing note reviewed. Constitutional: Appearance: Normal appearance. HENT: Head: Normocephalic and atraumatic. Eyes: Conjunctiva/sclera: Conjunctivae normal. Neck: Thyroid: No thyromegaly. Vascular: Normal carotid pulses. No JVD. Cardiovascular: Rate and Rhythm: Normal rate and regular rhythm. Pulses: Carotid pulses are 2+ on the right side and 2+ on the left side. Radial pulses are 2+ on the right side and 2+ on the left side. Heart sounds: Normal heart sounds. Pulmonary: Effort: Pulmonary effort is normal. Breath sounds: Normal breath sounds. Abdominal: General: Bowel sounds are normal. Palpations: Abdomen is soft. Musculoskeletal: Right lower leg: No edema. Left lower leg: No edema. Skin: General: Skin is warm and dry. Neurological: Mental Status: He is alert. Mental status is at baseline. Comments: + facial tic ALLERGIES Allergen Reactions Cats Intolerance Enviromental [Other] Ondansetron Intolerance, Other: See Comments heart palpitations Medication sildenafil (REVATIO) 20 mg tablet Take 40 mg by mouth as needed. triamcinolone acetonide (KENALOG) 0.1 % cream Apply 1 application to affected area three times daily. Apply to affected area .For up to two weeks until clear. May repeat as necessary PAST MEDICAL HISTORY Diagnosis Date ADHD (attention deficit hyperactivity disorder) Erectile dysfunction PMH - PAST MEDICAL HISTORY OF 05/08/2003 normal color vision PMH - PAST MEDICAL HISTORY OF child is adopted Respiratory syncytial virus (RSV) age 6 mos Routine or ritual circumcision Unspecified asthma(493.90) Social History Tobacco Use Smoking status: Never Smokeless tobacco: Never Substance Use Topics Alcohol use: No Drug use: No ASSESSMENT/PLAN: 1. History of ADHD - ICD9: V11.8, ICD10: Z86.59 (primary diagnosis) Interested in seeing psychiatrist and resuming Adderall which he states has taken in the past for ADHD and worked well - CONSULT TO [facility] Printed out resources and provided with him. He prefers to schedule with someone at [facility] regarding ADHD / behavioral health 6-12 MD Joey Farias APRN.JIG BUILDER HELPER Medical Decision Making: Problems: Moderate: 1+ chronic illnesses with change Medical Decision Making Level: 2 - Straightforward documented in this encounterTrihealth Bet[facility]12-23-2022 History of Present illness Narrative* OSMIN Taylor - 02/02/2022 8:15 AM EST Behavioral Health Social Work Progress Note Patient identified for [facility] from: PCP Reason for referral: [facility] Behavioral Health Resources: Psychiatry med management [facility] encounter type: MyChart Message Attempts to Outreach: 2 attempts Referral made: Psychiatry - Internal;Psychiatry - External Psychiatry-Internal referral type: Medication Management Psychiatry-External referral type: ADHD;Medication Management Reason for external referral: Wait times at [facility] too long Final Disposition: Resources given Patient Discharged?: Yes Patient reported that caregiver was able to meet their needs today?: N/A Patient read FreeATM message with requested resources by PCP. SW sent follow-up message to see if any additional questions or concerns exist. OSMIN Taylor February 02, 2022 documented in this encounterTrihealth Bethes[facility] Hospital12-16-2022 History of Present illness Narrative* OSMIN Taylor - 01/26/2022 12:56 PM EST Behavioral Health Social Work Progress Note Patient identified for [facility] from: PCP Reason for referral: Resources Behavioral Health Resources: Psychiatry med management [facility] encounter type: MyChart Message Attempts to Outreach: 1 attempt Referral made: Psychiatry - Internal;Psychiatry - External Psychiatry-Internal referral type: Medication Management Psychiatry-External referral type: Medication Management;ADHD Reason for external referral: Wait times at [facility] too long Final Disposition: Resources given Patient Discharged?: No Patient reported that caregiver was able to meet their needs today?: N/A Sent patient FreeATM with information for psychiatry resources for ADHD that are in network with [employer] insurance that will include the following: [facility] (Telehealth available) [address] [place] [address] [facility] [address] [place] [address] [facility] (Telehealth available) [address] [place], [place] [phone] [facility] [address] [place], [place] [id number] [facility] [address] [place] [address] [id number] (Telehealth available) [address] [facility] [phone] [facility] (Telehealth available) [address] [place], [place] [id number] [address] [place], [place] [phone] OSMIN Taylor January 26, 2022 documented in this encounterTrihealth [facility]12-16-2022 History of Present illness Narrative* Joey Bryant APRN.JIG BUILDER HELPER - 01/26/2022 12:20 PM EST SUBJECTIVE: COVID-19 VACCINE(1) Never done MENINGOCOCCAL B: Consider based on risk(1 of 2 - Risk Bexsero 2-dose series) Never done HEPATITIS C SCREENING Never done HIV SCREENING Never done DTAP,TDAP,TD(7 - Td or Tdap) due on 08/13/2019 INFLUENZA(1) due on 10/12/2021 HPI Moira Hummel is a 21 year old male. PMH significant for ACTIVE PROBLEM LIST Unspecified Constipation Other Atopic Dermatitis and Related Conditions Depression Pneumonia Due to Covid-19 Virus Covid-19 Presents today to establish care with Dr Washington Previous PCP:Cholo Cheng MD[address] [address] [facility] [address] Last seen: about 2 years Labwork: no ER/Hospitalization: [facility] for wisdom teeth, recent Outside records:no Adopted, no family history is known. Also requesting psychiatry referral for ADHD. Notes took medication as a child for ADHD, not sure what it was. States no anxiety or depression today Reports Difficulty focusing, with executive function. Some forgetfulness. Subsequently states he was seen at [facility] as adult. States Wellbutrin did not work well at all. Adderral has helped in the past, nothing else was helpful. States was last seen about one year ago. Stated would prefer to see someone that would be able to prescribe adderall if needed, not counseling center. Seen at [facility] ER for wisdom teeth problem 01/22/2022. Treated with amoxicillin and ibuprofen. Thinks he has low testosterone. Has history of ED. Seen by urology: states no Eats well exercises and can not loose weight. Hair loss is present. States he has eczema and would like topical treatment. Present on feet now, but appears in other locations. Review of Systems Constitutional: Positive for unexpected weight change. Skin: Positive for rash. Psychiatric/Behavioral: Positive for decreased concentration. Objective BP 116/82 Pulse 68 Ht 184.2 cm (6' 0.5) Wt 122.5 kg (270 lb) BMI 36.12 kg/m Physical Exam Vitals and nursing note reviewed. Constitutional: Appearance: Normal appearance. HENT: Head: Normocephalic and atraumatic. Eyes: Conjunctiva/sclera: Conjunctivae normal. Neck: Thyroid: No thyromegaly. Vascular: Normal carotid pulses. No JVD. Cardiovascular: Rate and Rhythm: Normal rate and regular rhythm. Pulses: Carotid pulses are 2+ on the right side and 2+ on the left side. Radial pulses are 2+ on the right side and 2+ on the left side. Heart sounds: Normal heart sounds. Pulmonary: Effort: Pulmonary effort is normal. Breath sounds: Normal breath sounds. Abdominal: General: Bowel sounds are normal. Palpations: Abdomen is soft. Musculoskeletal: Right lower leg: No edema. Left lower leg: No edema. Skin: General: Skin is warm and dry. Neurological: Mental Status: He is alert. Mental status is at baseline. Comments: + facial tic ALLERGIES Allergen Reactions Cats Intolerance Enviromental [Other] Medication metoclopramide HCl (REGLAN) 10 mg tablet Take 1 tablet by mouth every 8 hours as needed (nausea andvomiting). albuterol HFA (PROVENTIL HFA, VENTOLIN HFA) 90 mcg/actuation inhaler Inhale 2 Puffs as instructed every 4 hours as needed for wheezing/shortness of breath. benzonatate (TESSALON PERLE) 100 mg capsule Take 1 capsule by mouth three times daily as needed forcough. guaiFENesin (MUCINEX) 600 mg 12 hr tablet Take 1 tablet by mouth every 12 hours as needed (Cough (expectorant)). (Patient not taking: Reported on 09/27/2021) PAST MEDICAL HISTORY Diagnosis Date PMH - PAST MEDICAL HISTORY OF 05/08/03 normal color vision PMH - PAST MEDICAL HISTORY OF child is adopted Respiratory syncytial virus (RSV) age 6 mos Routine or ritual circumcision Unspecified asthma(493.90) Social History Tobacco Use Smoking status: Never Smokeless tobacco: Never Substance Use Topics Alcohol use: No Drug use: No ASSESSMENT/PLAN: 1. History of ADHD - ICD9: V11.8, ICD10: Z86.59 (primary diagnosis) Interested in seeing psychiatrist and resuming Adderall which he states has taken in the past for ADHD and worked well - CONSULT TO [facility] 2. Encounter for immunization - ICD9: V03.89, ICD10: Z23 3. Special screening examination for viral disease - ICD9: V73.99, ICD10: Z11.59 - HEP C AB IA W/CONF SCRN 4. Screening for HIV (human immunodeficiency virus) - ICD9: V73.89, ICD10: Z11.4 - HIV 1 2 COMBO(AG/AB),WITH REFLEX TO DIFFERENTIATION 5. Erectile dysfunction, unspecified erectile dysfunction type - ICD9: 607.84, ICD10: N52.9 - TESTOSTERONE, FREE AND TOTAL - CONSULT TO UROLOGY 6. Routine medical exam - ICD9: V70.0, ICD10: Z00.00 Endorse plant-based diet and routine exercise - CBC + DIFF - COMP METABOLIC PANEL - TSH BLD 7. Weight gain - ICD9: 783.1, ICD10: R63.5 Reports eating a healthy diet and exercising routinely and unable to lose weight - TSH BLD 8. History of chronic eczema - ICD9: V13.3, ICD10: Z87.2 Refer to dermatology if so desires - TRIAMCINOLONE ACETONIDE 0.1 % TOPICAL CREAM labs today 1-3 months Joey Bryant APRN.JIG BUILDER HELPER 6-12 MD Joey Farias APRN.HARRISON Medical Decision Making: Problems: Moderate: 2+ stable chronic illnesses Data: Unique test(s) ordered: 3+ Risk: Moderate: Drug management Medical Decision Making Level: 4 - Moderate documented in this encounterTrihealth [facility]08-18-2022 Miscellaneous Notes* Telephone Encounter - Marjan Choudhury PA-C - 09/28/2021 9:23 AM EDT I called and spoke with patient regarding his negative COVID test. With his girlfriend being positive and him having symptoms,there is a good probability does have COVID. He will come back in to be tested again. Order signed. * Telephone Encounter - Leah Noguera LPN - 09/28/2021 8:50 AM EDT Pt was seen 09/27/21 in [facility] & tested neg for covid. Pt states his girlfriend has the same symptoms & tested positive. Pt had Sx for 6 hrs prior to being tested. Pt is asking if he should quarantine? If so, he is asking if he can have a note for work? Please advise. Leah Noguera LPN documented in this encounterTrihealth Bet[facility]10-01-2021 NoteHNO ID: [id number] Author: Shannon Espino MD Service: Hospital Medicine Author Type: Physician Type: Progress Notes Filed: 11/11/2020 5:18 PM Note Text: DEPARTMENT OF HOSPITAL MEDICINE PROGRESS NOTE SERVICE DATE: 11/11/2020 SERVICE TIME: 5:14 PM Hospital Medicine/Primary Attending: Shannon Espino MD NIGHT AND WEEKEND COVERAGE: [place] COVERAGE: Days: [phone], please page attending physician. Nights: [phone], please page [place] Hospitalist Night coverage pager [phone]. Subjective INTERVAL HPI: Notes breathing is much better/feeling well overall /fatigue near resolved Cough improved/ min phlegm brownish NO nvd/appetite is good Intact taste and smell 96% on RA this morning /drops to 90-91% w/ambulation Current Facility-Administered Medications Medication Dose Route Frequency - iv contrast (radiology procedure) INTRAVENOUS DIRECTED PRN - remdesivir 100 mg in NaCl 0.9% 250 mL Vial-Mate/ADD-[place] 100 mg INTRAVENOUS q 24 HR - NaCl 0.9% iv flush bag 20 mL INTRAVENOUS PRN - enoxaparin 60 mg injection (LOVENOX) 60 mg SUBCUTANEOUS q 12 HR - sodium chloride 0.9 % (flush) 3-5 mL (BD POSIFLUSH) 3-5 mL INTRAVENOUS q 12 H - dexAMETHasone 6 mg tab(s) (DECADRON) 6 mg ORAL DAILY Or - dexAMETHasone sodium phosphate (PF) 6 mg injection (DECADRON) 6 mg INTRAVENOUS DAILY - albuterol HFA 90 mcg/actuation 2 Puff (PROVENTIL HFA, VENTOLIN HFA) 2 Puff INHALATION q 4 H PRN - guaiFENesin 600 mg ER tab(s) (MUCINEX) 600 mg ORAL q 12 H PRN - benzonatate 100 mg cap(s) (TESSALON PERLE) 100 mg ORAL TID PRN - ondansetron (PF) 4 mg injection (ZOFRAN) 4 mg INTRAVENOUS q 6 H PRN - ibuprofen 200 mg tab(s) (MOTRIN) 200 mg ORAL QID PRN - pantoprazole 40 mg injection (PROTONIX) 40 mg INTRAVENOUS DAILY (6 AM) - prochlorperazine 5 mg tab(s) (COMPAZINE) 5 mg ORAL q 6 H PRN - codeine-guaiFENesin 5-10 mL oral liquid (ROBITUSSIN AC) 5-10 mL ORAL q 6 H PRN - melatonin 3 mg tab(s) 3 mg ORAL DAILY (8 PM) Objective PHYSICAL EXAM: BP 126/76 Pulse 97 Temp (Src) 98.4 (Oral) Resp 18 Ht 6' 0 (1.83m) Wt 266 lb 12.1 oz (121.0kg) SpO2 96% BMI 36.17 kg/(m2). O2 Therapy: Room Air Physical Exam Performed GENERAL: awake alert Appears better overall EYES:, EOMI, Conjunctiva clear NECK: supple, no jvd HEART: regular rate and rhythm, S1 and S2, no murmur LUNGS: ae b/l on auscultation; rareWheezes/creps ABDOMEN: Soft, nontender, bowel sounds normal, no masses EXTREMITY: no edema; no erythema, NEURO: Alert and Oriented x3; Nonfocal PSYCH: Appropriate mood; Cooperative Lines, Drains, and Airways Line Peripheral 11/08/20 Assessment Short Right Antecubital 20 Gauge 3 days Reviewed lines and needs to be continued: REASONS: Intravenous antibiotics, Telemetry and Electrolyte replacement DATA: Diagnostic tests reviewed for today's visit: 02 Requirement on Arrival: O2 Therapy: Room Air, Liters: 3, %FIO2: (3L NC) 02 Requirement Now: O2 Therapy: Room Air CXRAY: Positive EKG Changes on Arrival: Negative No results found for: COVNP Albumin (g/dL) Date Value 11/10/2020 4.5 11/09/2020 4.0 11/08/2020 4.6 11/08/2020 4.5 ALT (U/L) Date Value 11/10/2020 101 11/09/2020 82 11/08/2020 115 11/08/2020 116 AST (U/L) Date Value 11/10/2020 40 11/09/2020 31 11/08/2020 53 11/08/2020 54 Lipase (U/L) Date Value 11/07/2020 15 CRP (mg/dL) Date Value 11/10/2020 0.4 11/09/2020 1.0 CK (U/L) Date Value 02/19/2013 88 Ferritin (ng/mL) Date Value 11/10/2020 269.7 WBC (k/uL) Date Value 11/11/2020 7.68 11/10/2020 6.66 11/09/2020 5.06 Lymph% (%) Date Value 11/08/2020 13.2 11/07/2020 24.8 02/19/2013 34.8 03/25/2012 18.7 Abs Lymph (k/uL) Date Value 11/08/2020 0.62 11/07/2020 1.00 02/19/2013 3.05 03/25/2012 0.90 KISHA High Sensitivity Date Value Ref Range Status 11/10/2020 <6 <12 ng/L Final Recent Labs 11/08/20 2348 PBNP <50 Assessment/Plan Problem List Pneumonia due to COVID-19 virus POA: Yes Asthma with acute exacerbation POA: Yes Acute hypoxemic respiratory failure (HCC) POA: Yes Transaminitis POA: Yes COVID-19 POA: Yes HOSPITAL COURSE: Moira Hummel is a 20 year old male with a PMH significant for asthma and prior tobacco/vaping use (quit two weeks ago) who presented to the ED for evaluation of worsening shortness of breath in the context of known COVID-19 infection. Patient states that he had symptom onset and +PCR on 10/30. Symptoms initially consisted of fatigue, myalgias, DELACRUZ, fevers (Tmax 102,8F), chills, nausea, and productive cough of thick brown mucus which was occasionally blood tinged. He has had diminished appetite as well as some vomiting and diarrhea. His pulse ox was reportedly in the mid 80s at home while at rest. He was seen in the ED for mainly GI symptoms on 11/06/20 and given IVF and anti-emetics with improvement in his symptoms. He was given a prescription for reglan which did help slightly wi (more content not included)...[facility] [id number] NoteHNO ID: [id number] Author: Iban Iniguez MD Service: Infectious Disease Author Type: Physician Type: Progress Notes Filed: 11/11/2020 2:05 PM Note Text: INFECTIOUS DISEASE PROGRESS NOTE Patient Name: Moira Hummel ASSESSMENT: - COVID-19 Viral Pneumonia (PCR +10/30/20) - Acute Hypoxic Respiratory Failure - Asthma - Vaping/ Tobacco Abuse - Transaminitis - Obesity ? RECOMMENDATIONS: Continue Remdesivir. Last dose tomorrow may be given a few hours early if needed to facilitate discharge planning- monitor LFT daily while on RDSV Continue Dexamethasone Not a MAB candidate at present, will continue to evaluate Monitor off antibiotics Trend inflammatory markers q48 hrs Monitor CBC/ temps Recommend staying in the hospital and complete remdesivir course will discharge planning for tomorrow. Discussed with internal medicine service and patient in details. All questions answered. Call infectious disease with questions over the weekend INTERVAL HISTORY: Afebrile, weaned to RA but still saturations remain in the low 90s, 91 to 93%. The patient wants to be discharged today. Wants his to be able to visit him in the hospital. Symptoms are improving CRP WNL, LFTS improving WBC 7.7 MEDICATIONS: reviewed. Current Facility-Administered Medications Medication Dose Route Frequency - iv contrast (radiology procedure) INTRAVENOUS DIRECTED PRN - remdesivir 100 mg in NaCl 0.9% 250 mL Vial-Mate/ADD-[place] 100 mg INTRAVENOUS q 24 HR - NaCl 0.9% iv flush bag 20 mL INTRAVENOUS PRN - enoxaparin 60 mg injection (LOVENOX) 60 mg SUBCUTANEOUS q 12 HR - sodium chloride 0.9 % (flush) 3-5 mL (BD POSIFLUSH) 3-5 mL INTRAVENOUS q 12 H - dexAMETHasone 6 mg tab(s) (DECADRON) 6 mg ORAL DAILY Or - dexAMETHasone sodium phosphate (PF) 6 mg injection (DECADRON) 6 mg INTRAVENOUS DAILY - albuterol HFA 90 mcg/actuation 2 Puff (PROVENTIL HFA, VENTOLIN HFA) 2 Puff INHALATION q 4 H PRN - guaiFENesin 600 mg ER tab(s) (MUCINEX) 600 mg ORAL q 12 H PRN - benzonatate 100 mg cap(s) (TESSALON PERLE) 100 mg ORAL TID PRN - ondansetron (PF) 4 mg injection (ZOFRAN) 4 mg INTRAVENOUS q 6 H PRN - ibuprofen 200 mg tab(s) (MOTRIN) 200 mg ORAL QID PRN - pantoprazole 40 mg injection (PROTONIX) 40 mg INTRAVENOUS DAILY (6 AM) - prochlorperazine 5 mg tab(s) (COMPAZINE) 5 mg ORAL q 6 H PRN - codeine-guaiFENesin 5-10 mL oral liquid (ROBITUSSIN AC) 5-10 mL ORAL q 6 H PRN - melatonin 3 mg tab(s) 3 mg ORAL DAILY (8 PM) PHYSICAL EXAM: Vital signs: BP 109/67 Pulse 81 Temp 36.7 ?C (98.1 ?F) (Oral) Resp 18 Ht 182.9 cm (6') Wt 121 kg (266 lb 12.1 oz) SpO2 92% BMI 36.18 kg/m? Temp (24hrs), Av.6 ?C (97.9 ?F), Min:36.3 ?C (97.3 ?F), Max:37 ?C (98.6 ?F) ? GEN: NAD HEENT: PERRL, moist oral mucosa, neck supple PULM: diminished breath sounds bilateral CV: RRR GI: soft, non distended, non tender, BSx4 : no weeks, no CVAT EXT: no edema, no joint inflammation SKIN: no rash NEURO: no focal deficits, Alert and oriented x3 LINES: PIV sites clean Lab data: reviewed Recent Labs 11/11/20 0640 11/10/20 0635 11/09/20 0556 WBC 7.68 6.66 5.06 HB 14.4 14.7 13.4 PLT 306 286 236 INR -- 1.2 1.2 NA 140 142 139 K 3.9 4.0 4.2 CO2 29 28 26 BUN 14 13 10 CREAT 0.78 0.82 0.71* AST -- 40 31 ALT -- 101* 82* TBILI -- 0.6 0.4 ALKPHOS -- 50 46 CRP -- 0.4 1.0* Microbiology data: reviewed Imaging data: reviewed [facility] Answering Service: [phone] November 11, 2020 1:50 PM Patient seen and examined. Discussed with DELIVERY ROUTE DRIVER. Maradiaga findings confirmed. Plan as outlined. Iban Iniguez MD [phone] 11/11/2020 2:05 PMAshtabula County Medical [id number] NoteHNO ID: [id number] Author: OSMIN Nguyen Service: Care Management Author Type: Supervisor Assembly And Packing Type: Care Mgt Progress Note Filed: 11/11/2020 10:00 AM Note Text: CARE MANAGEMENT PROGRESS NOTE SERVICE DATE: 11/11/2020 SERVICE TIME: 9:50am LOS: 3 days EMR reviewed. Patient currently on room air. RMDV scheduled to end 11/13. Anticipate no skilled needs at d/c. CM continuing to monitor. SIGNATURE: OSMIN Nguyen PATIENT NAME: Moira Hummel DATE: November 11, 2020 TIME: 9:59 AM PAGER/CONTACT #: [phone] NoteHNO ID: [id number] Author: Shannon Espino MD Service: Hospital Medicine Author Type: Physician Type: Progress Notes Filed: 11/10/2020 2:54 PM Note Text: DEPARTMENT OF HOSPITAL MEDICINE PROGRESS NOTE SERVICE DATE: 11/10/2020 SERVICE TIME: 2:43 PM Hospital Medicine/Primary Attending: Shannon Espino MD NIGHT AND WEEKEND COVERAGE: [place] COVERAGE: Days: [phone], please page attending physician. Nights: [phone], please page [place] Hospital[facility] Night coverage pager [phone]. Subjective INTERVAL HPI: Notes breathing is fair at rest though- laboured w/activity ++ LAINEZ/cough bouts are bothersome and tiring / min phlegm brownish NO nvd/appetite is good Intact taste and smell 91% on 3L NC Current Facility-Administered Medications Medication Dose Route Frequency - iv contrast (radiology procedure) INTRAVENOUS DIRECTED PRN - remdesivir 100 mg in NaCl 0.9% 250 mL Vial-Mate/ADD-[place] 100 mg INTRAVENOUS q 24 HR - NaCl 0.9% iv flush bag 20 mL INTRAVENOUS PRN - enoxaparin 60 mg injection (LOVENOX) 60 mg SUBCUTANEOUS q 12 HR - sodium chloride 0.9 % (flush) 3-5 mL (BD POSIFLUSH) 3-5 mL INTRAVENOUS q 12 H - dexAMETHasone 6 mg tab(s) (DECADRON) 6 mg ORAL DAILY Or - dexAMETHasone sodium phosphate (PF) 6 mg injection (DECADRON) 6 mg INTRAVENOUS DAILY - albuterol HFA 90 mcg/actuation 2 Puff (PROVENTIL HFA, VENTOLIN HFA) 2 Puff INHALATION q 4 H PRN - guaiFENesin 600 mg ER tab(s) (MUCINEX) 600 mg ORAL q 12 H PRN - benzonatate 100 mg cap(s) (TESSALON PERLE) 100 mg ORAL TID PRN - ondansetron (PF) 4 mg injection (ZOFRAN) 4 mg INTRAVENOUS q 6 H PRN - ibuprofen 200 mg tab(s) (MOTRIN) 200 mg ORAL QID PRN - pantoprazole 40 mg injection (PROTONIX) 40 mg INTRAVENOUS DAILY (6 AM) - prochlorperazine 5 mg tab(s) (COMPAZINE) 5 mg ORAL q 6 H PRN Objective PHYSICAL EXAM: BP 122/61 Pulse 83 Temp (Src) 97.9 (Oral) Resp 18 Ht 6' 0 (1.83m) Wt 266 lb 12.1 oz (121.0kg) SpO2 92% BMI 36.17 kg/(m2). O2 Therapy: Nasal Cannula, Liters: 3, %FIO2: (3 LPM per NC) Physical Exam Performed GENERAL: awake alert Appears tired EYES:, EOMI, Conjunctiva clear NECK: supple, no jvd HEART: regular rate and rhythm, S1 and S2, no murmur LUNGS: dec ae b/l on auscultation; occ. Wheezes/creps ABDOMEN: Soft, nontender, bowel sounds normal, no masses EXTREMITY: no edema; no erythema, NEURO: Alert and Oriented x3; Nonfocal PSYCH: Appropriate mood; Cooperative Lines, Drains, and Airways Line Peripheral 11/08/20 Assessment Short Right Antecubital 20 Gauge 2 days Reviewed lines and needs to be continued: REASONS: Intravenous antibiotics, Telemetry and Electrolyte replacement DATA: Diagnostic tests reviewed for today's visit: 02 Requirement on Arrival: O2 Therapy: Room Air, Liters: 3, %FIO2: (3L NC) 02 Requirement Now: O2 Therapy: Nasal Cannula, Liters: 3, %FIO2: (3 LPM per NC) CXRAY: Positive EKG Changes on Arrival: Negative No results found for: COVNP Albumin (g/dL) Date Value 11/10/2020 4.5 11/09/2020 4.0 11/08/2020 4.6 11/08/2020 4.5 ALT (U/L) Date Value 11/10/2020 101 11/09/2020 82 11/08/2020 115 11/08/2020 116 AST (U/L) Date Value 11/10/2020 40 11/09/2020 31 11/08/2020 53 11/08/2020 54 Lipase (U/L) Date Value 11/07/2020 15 CRP (mg/dL) Date Value 11/09/2020 1.0 CK (U/L) Date Value 02/19/2013 88 WBC (k/uL) Date Value 11/10/2020 6.66 11/09/2020 5.06 11/08/2020 4.70 Lymph% (%) Date Value 11/08/2020 13.2 11/07/2020 24.8 02/19/2013 34.8 03/25/2012 18.7 Abs Lymph (k/uL) Date Value 11/08/2020 0.62 11/07/2020 1.00 02/19/2013 3.05 03/25/2012 0.90 KISHA High Sensitivity Date Value Ref Range Status 11/10/2020 <6 <12 ng/L Final Recent Labs 11/08/20 2348 PBNP <50 Assessment/Plan Problem List Pneumonia due to COVID-19 virus POA: Yes Asthma with acute exacerbation POA: Yes Acute hypoxemic respiratory failure (HCC) POA: Yes Transaminitis POA: Yes COVID-19 POA: Yes HOSPITAL COURSE: Moira Hummel is a 20 year old male with a PMH significant for asthma and prior tobacco/vaping use (quit two weeks ago) who presented to the ED for evaluation of worsening shortness of breath in the context of known COVID-19 infection. Patient states that he had symptom onset and +PCR on 10/30. Symptoms initially consisted of fatigue, myalgias, DELACRUZ, fevers (Tmax 102,8F), chills, nausea, and productive cough of thick brown mucus which was occasionally blood tinged. He has had diminished appetite as well as some vomiting and diarrhea. His pulse ox was reportedly in the mid 80s at home while at rest. He was seen in the ED for mainly GI symptoms on 11/06/20 and given IVF and anti-emetics with improvement in his symptoms. He was given a prescription for reglan which did help slightly with the nausea. He breathing, however, has become more labored since that time which is why he presented again today. He does note some chest tight (more content not included)...[facility] [id number] NoteHNO ID: [id number] Author: Amarilis Shaikh RN Service: Care Management Author Type: Registered Nurse Type: Care Mgt Initial Assessment Filed: 11/10/2020 12:47 PM Note Text: CARE MANAGEMENT: ASSESSMENT AND DISCHARGE PLAN SERVICE DATE: November 10, 2020 SERVICE TIME: 12:38 PM PRIMARY CARE PHYSICIAN: Cholo Cheng MD ADMISSION STATUS: Inpatient Needs Prior to Discharge: To Be Determined;Discharge Prescriptions;Facility or Agency Choices;Oxygen Set-up;Discharge Transportation MEDICAL: [facility] MEDICAID 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 Advance Directive: Current Advance Directive: None Oil [employer] Recruiter Attempted to Assist with AD Completion: Yes Action: Education Provided Health LiteracyHow often do you need to have someone help you when you read instructions, pamphlets, or other written material from your doctor or pharmacy? : 3 - Sometimes How confident are you filling out medical forms by yourself?: 3 - Somewhat Baseline Mental Status Prior to this Illness what was the patient's Baseline Mental Status?: Alert AND Oriented Prior to this illness, has anyone described the patient having any of the following behaviors?: Not Applicable Relationship of the informant to the patient:: Self Functional Status: Independent Does Patient Currently Receive Any Community Services or Home Care?: None Equipment Prior to Admission: None SOCIAL: Living Arrangements: Home Lives With: Spouse Financial Resources: Employed Primary Contact: Extended Emergency Contact Information Primary Emergency Contact: Wendi Hummel Mobile Relation: Spouse Secondary Emergency Contact: Arabella Hummel Address: [address] [place] [id number] Mobile Relation: Mother Father: Stefan Hummel Caregiver AssessmentCaregiver is ready, willing and able to meet the patient's needs as recommended by the inter-professional team:: No Caregiver needed Does the patient have an acute stroke diagnosis, or has the patient had a stroke during this admission?: No Patient's transition needs and plan for meeting these needs: D/C Home with . Patient's perception of need for this admission: COVID+ Medication Adherance I am convinced of the importance of my prescription medication: 0 - Agree Completely I worry that my prescription medication will do more harm than good to me : 0 - Disagree Completely I feel financially burdened by my rsj-cw-oaylgs expenses for my prescription medication:: 0 - Disagree Completely Risk Score: 0 Patient is categorized as: Low risk < 2 Are you interested in bedside delivery of your medications? Vickie, [facility], [address] [place] ASSESSMENT AND PLAN: Medical Needs: Medical Needs: None Psychosocial Needs: Psychosocial Needs: None FREEDOM OF CHOICE EXPLAINED: [place] of Choice Given: No Reason Not Given: No placements necessary POTENTIAL TRANSITION PLANS Home;Respiratory 20 yr male admitted with COVID +, lives with , works outside the home. Pts' , Wendi contacted for Assessment as Pt. doesn't answer phone in Hospital Room. Pts. Wendi req the designated visitor be changed to her since Pts' mother, Arabella Hummel visited and told Wendi she will not visit again. NOM contacted and said the designated visitor cannot be changed. Wendi contacted with message. Pt. has transportation to home. Since Wendi was in contact with Pt. she was urged to monitor for COVID Symptoms and to get tested if Symptoms arise. No D/C needs identified at this time. SIGNATURE: Amarilis Shaikh RN,BSN, ACM PATIENT NAME: Moira Hummel DATE: November 10, 2020 TIME: 12:38 PM PAGER/CONTACT #: [phone] [id number] NoteHNO ID: [id number] Author: Iban Iniguez MD Service: Infectious Disease Author Type: Physician Type: Progress Notes Filed: 11/10/2020 9:33 PM Note Text: INFECTIOUS DISEASE PROGRESS NOTE Patient Name: Moira Hummel Date: 11/10/2020 ASSESSMENT: - COVID-19 Viral Pneumonia (PCR +10/30/20) - Acute Hypoxic Respiratory Failure - Asthma - Vaping/ Tobacco Abuse - Transaminitis - Obesity ? RECOMMENDATIONS: Continue Remdesivir - monitor LFT daily while on RDSV Continue Dexamethasone Noted a MAB candidate at present, will continue to evaluate Monitor off antibiotics Trend inflammatory markers q48 hrs Monitor CBC/ temps INTERVAL HISTORY: Afebrile, on 3L NC, off at present on exam because patient nose dry Feels ok, continues to c/o cough, dyspnea, and fatigue ALT increase, Cr ok MEDICATIONS: reviewed. Current Facility-Administered Medications Medication Dose Route Frequency - iv contrast (radiology procedure) INTRAVENOUS DIRECTED PRN - remdesivir 100 mg in NaCl 0.9% 250 mL Vial-Mate/ADD-[place] 100 mg INTRAVENOUS q 24 HR - NaCl 0.9% iv flush bag 20 mL INTRAVENOUS PRN - enoxaparin 60 mg injection (LOVENOX) 60 mg SUBCUTANEOUS q 12 HR - sodium chloride 0.9 % (flush) 3-5 mL (BD POSIFLUSH) 3-5 mL INTRAVENOUS q 12 H - dexAMETHasone 6 mg tab(s) (DECADRON) 6 mg ORAL DAILY Or - dexAMETHasone sodium phosphate (PF) 6 mg injection (DECADRON) 6 mg INTRAVENOUS DAILY - albuterol HFA 90 mcg/actuation 2 Puff (PROVENTIL HFA, VENTOLIN HFA) 2 Puff INHALATION q 4 H PRN - guaiFENesin 600 mg ER tab(s) (MUCINEX) 600 mg ORAL q 12 H PRN - benzonatate 100 mg cap(s) (TESSALON PERLE) 100 mg ORAL TID PRN - ondansetron (PF) 4 mg injection (ZOFRAN) 4 mg INTRAVENOUS q 6 H PRN - ibuprofen 200 mg tab(s) (MOTRIN) 200 mg ORAL QID PRN - pantoprazole 40 mg injection (PROTONIX) 40 mg INTRAVENOUS DAILY (6 AM) - prochlorperazine 5 mg tab(s) (COMPAZINE) 5 mg ORAL q 6 H PRN PHYSICAL EXAM: Vital signs: BP 137/69 Pulse 68 Temp 36.8 ?C (98.2 ?F) (Oral) Resp 18 Ht 182.9 cm (6') Wt 121 kg (266 lb 12.1 oz) SpO2 96% BMI 36.18 kg/m? Temp (24hrs), Av.6 ?C (97.9 ?F), Min:36.3 ?C (97.3 ?F), Max:37 ?C (98.6 ?F) ? GEN: Sleepy, NAD HEENT: PERRL, moist oral mucosa, neck supple PULM: diminished breath sounds bilateral CV: RRR GI: soft, non distended, non tender, BSx4 : no weeks, no CVAT EXT: no edema, no joint inflammation SKIN: no rash NEURO: no focal deficits, Alert and oriented x3 LINES: PIV sites clean Lab data: reviewed Recent Labs 11/10/20 0635 11/09/20 0556 11/08/20 1249 WBC 6.66 5.06 4.70 HB 14.7 13.4 15.2 PLT 286 236 228 INR 1.2 1.2 1.1 NA 142 139 140 K 4.0 4.2 4.8 CO2 28 26 28 BUN 13 10 9 CREAT 0.82 0.71* 0.86 AST 40 31 54* 53* ALT 101* 82* 116* 115* TBILI 0.6 0.4 0.6 0.6 ALKPHOS 50 46 58 56 CRP -- 1.0* -- Microbiology data: reviewed Imaging data: reviewed [facility] Answering Service: [phone] November 10, 2020 11:36 AM Patient seen and examined. Discussed with DELIVERY ROUTE DRIVER. Maradiaga findings confirmed. Plan as outlined. Iban Iniguez MD [phone] 11/10/2020 9:32 PMAshtabula County Medical CenterLpnkyteh86-67-4789 NoteHNO ID: [id number] Author: Shannon Espino MD Service: Hospital Medicine Author Type: Physician Type: Progress Notes Filed: 11/09/2020 4:55 PM Note Text: DEPARTMENT OF HOSPITAL MEDICINE PROGRESS NOTE SERVICE DATE: 11/09/2020 SERVICE TIME: 10:55 AM Hospital Medicine/Primary Attending: [place] Espino MD NIGHT AND WEEKEND COVERAGE: [place] COVERAGE: Days: [phone], please page attending physician. Nights: [phone], please page [place] Hospitalist Night coverage pager [phone]. Subjective INTERVAL HPI: Notes breathing is fair at rest though- laboured w/activity ++ LAINEZ NO Nvd/appetite is good Notes Cough w.phlegm brown Intact taste and smell 91% on 2L NC Current Facility-Administered Medications Medication Dose Route Frequency - iv contrast (radiology procedure) INTRAVENOUS DIRECTED PRN - remdesivir 100 mg in NaCl 0.9% 250 mL Vial-Mate/ADD-[place] 100 mg INTRAVENOUS q 24 HR - NaCl 0.9% iv flush bag 20 mL INTRAVENOUS PRN - enoxaparin 60 mg injection (LOVENOX) 60 mg SUBCUTANEOUS q 12 HR - sodium chloride 0.9 % (flush) 3-5 mL (BD POSIFLUSH) 3-5 mL INTRAVENOUS q 12 H - dexAMETHasone 6 mg tab(s) (DECADRON) 6 mg ORAL DAILY Or - dexAMETHasone sodium phosphate (PF) 6 mg injection (DECADRON) 6 mg INTRAVENOUS DAILY - albuterol HFA 90 mcg/actuation 2 Puff (PROVENTIL HFA, VENTOLIN HFA) 2 Puff INHALATION q 4 H PRN - guaiFENesin 600 mg ER tab(s) (MUCINEX) 600 mg ORAL q 12 H PRN - benzonatate 100 mg cap(s) (TESSALON PERLE) 100 mg ORAL TID PRN - azithromycin 500 mg tab(s) (ZITHROMAX) 500 mg ORAL DAILY - cefTRIAXone 1 g in D5W 100 mL MB+ (ROCEPHIN) 1 g INTRAVENOUS q 24 H - ondansetron (PF) 4 mg injection (ZOFRAN) 4 mg INTRAVENOUS q 6 H PRN - ibuprofen 200 mg tab(s) (MOTRIN) 200 mg ORAL QID PRN - pantoprazole 40 mg injection (PROTONIX) 40 mg INTRAVENOUS DAILY (6 AM) - prochlorperazine 5 mg tab(s) (COMPAZINE) 5 mg ORAL q 6 H PRN Objective PHYSICAL EXAM: BP 122/70 Pulse 75 Temp (Src) 98.3 (Oral) Resp 18 Ht 6' 0 (1.83m) Wt 266 lb 12.1 oz (121.0kg) SpO2 93% BMI 36.17 kg/(m2). O2 Therapy: Nasal Cannula, Liters: 3.00, %FIO2: (3L NC) Physical Exam Performed GENERAL: awake alert In mild resp. distress EYES:, EOMI, Conjunctiva clear NECK: supple, no jvd HEART: regular rate and rhythm, S1 and S2, no murmur LUNGS: clear to auscultation;occ. wheezes ABDOMEN: Soft, nontender, bowel sounds normal, no masses EXTREMITY: no edema; no erythema, NEURO: Alert and Oriented x3; Nonfocal PSYCH: Appropriate mood; Cooperative Lines, Drains, and Airways Line Peripheral 11/08/20 Assessment Short Right Antecubital 20 Gauge 1 day Reviewed lines and needs to be continued: REASONS: Intravenous antibiotics, Telemetry and Electrolyte replacement DATA: Diagnostic tests reviewed for today's visit: 02 Requirement on Arrival: O2 Therapy: Room Air, Liters: 3, %FIO2: (3L NC) 02 Requirement Now: O2 Therapy: Nasal Cannula, Liters: 3.00, %FIO2: (3L NC) CXRAY: Positive EKG Changes on Arrival: Negative No results found for: COVNP Albumin (g/dL) Date Value 11/09/2020 4.0 11/08/2020 4.6 11/08/2020 4.5 ALT (U/L) Date Value 11/09/2020 82 11/08/2020 115 11/08/2020 116 AST (U/L) Date Value 11/09/2020 31 11/08/2020 53 11/08/2020 54 Lipase (U/L) Date Value 11/07/2020 15 CRP (mg/dL) Date Value 11/09/2020 1.0 CK (U/L) Date Value 02/19/2013 88 WBC (k/uL) Date Value 11/09/2020 5.06 11/08/2020 4.70 11/07/2020 4.04 02/19/2013 8.77 Lymph% (%) Date Value 11/08/2020 13.2 11/07/2020 24.8 02/19/2013 34.8 03/25/2012 18.7 Abs Lymph (k/uL) Date Value 11/08/2020 0.62 11/07/2020 1.00 02/19/2013 3.05 03/25/2012 0.90 KISHA High Sensitivity Date Value Ref Range Status 11/09/2020 <6 <12 ng/L Final Recent Labs 11/08/20 2348 PBNP <50 Assessment/Plan Problem List Pneumonia due to COVID-19 virus POA: Yes Asthma with acute exacerbation POA: Yes Acute hypoxemic respiratory failure (HCC) POA: Yes Transaminitis POA: Yes COVID-19 POA: Yes HOSPITAL COURSE: Moira Hummel is a 20 year old male with a PMH significant for asthma and prior tobacco/vaping use (quit two weeks ago) who presented to the ED for evaluation of worsening shortness of breath in the context of known COVID-19 infection. Patient states that he had symptom onset and +PCR on 10/30. Symptoms initially consisted of fatigue, myalgias, DELACRUZ, fevers (Tmax 102,8F), chills, nausea, and productive cough of thick brown mucus which was occasionally blood tinged. He has had diminished appetite as well as some vomiting and diarrhea. His pulse ox was reportedly in the mid 80s at home while at rest. He was seen in the ED for mainly GI symptoms on 11/06/20 and given IVF and anti-emetics with improvement in his symptoms. He was given a prescription for reglan which did help slightly with the nausea. He breathing, however, has become more labored since that time which is wh (more content not included)...[facility] [id number] History of Past illness Narrative* Problem Noted Date Resolved Date Acute hypoxemic respiratory failure 11/08/2020 11/11/2020 Transaminitis 11/08/2020 11/11/2020 Asthma with acute exacerbation 08/23/2005 1 documented as of this encounter (statuses as of 09/28/2021) [facility]09-28-2021 History of Past illness Narrative* Problem Noted Date Resolved Date Acute hypoxemic respiratory failure 11/08/2020 11/11/2020 Transaminitis 11/08/2020 11/11/2020 Asthma with acute exacerbation 08/23/2005 1 documented as of this encounter (statuses as of 01/26/2022) [address]28-2021 History of Past illness Narrative* Problem Noted Date Resolved Date Acute hypoxemic respiratory failure 11/08/2020 11/11/2020 Transaminitis 11/08/2020 11/11/2020 Asthma with acute exacerbation 08/23/2005 1 documented as of this encounter (statuses as of 01/26/2022) [address]28-2021 History of Past illness Narrative* Problem Noted Date Resolved Date Acute hypoxemic respiratory failure 11/08/2020 11/11/2020 Transaminitis 11/08/2020 11/11/2020 Asthma with acute exacerbation 08/23/2005 1 documented as of this encounter (statuses as of 02/03/2022) [address]28-2021 History of Past illness Narrative* Problem Noted Date Resolved Date Acute hypoxemic respiratory failure 11/08/2020 11/11/2020 Transaminitis 11/08/2020 11/11/2020 Asthma with acute exacerbation 08/23/2005 1 documented as of this encounter (statuses as of 02/26/2022) [address]28-2021 History of Past illness Narrative* Problem Noted Date Resolved Date Acute hypoxemic respiratory failure 11/08/2020 11/11/2020 Transaminitis 11/08/2020 11/11/2020 Asthma with acute exacerbation 08/23/2005 1 documented as of this encounter (statuses as of 02/26/2022) [address]28-2021 History of Past illness Narrative* Problem Noted Date Resolved Date Acute hypoxemic respiratory failure 11/08/2020 11/11/2020 Transaminitis 11/08/2020 11/11/2020 Asthma with acute exacerbation 08/23/2005 1 documented as of this encounter (statuses as of 03/28/2022) [address]28-2021 History of Past illness Narrative* Problem Noted Date Resolved Date Acute hypoxemic respiratory failure 11/08/2020 11/11/2020 Transaminitis 11/08/2020 11/11/2020 Asthma with acute exacerbation 08/23/2005 1 documented as of this encounter (statuses as of 05/23/2022) [facility]Eval[facility] noteNo assessment information availableWTrinity [facility] Work Phone: Evaluation note* Diagnosis Suspected COVID-19 virus infection- Primary documented [facility] this encounter [facility]* Diagnosis History of ADHD- Primary Personal history of other mental disorder Encounter for immunization Need for other specified prophylactic vaccination against single bacterial disease Special screening examination for viral disease Special screening examination for unspecified viral disease Screening for HIV (human immunodeficiency virus) Special screening examination for other specified viral diseases Erectile dysfunction, unspecified erectile dysfunction type Routine medical exam Routine general medical examination at a health care facility Weight gain Abnormal weight gain History of chronic eczema Personal history of diseases of skin and subcutaneous tissue documented [facility] this encounter [facility]* Diagnosis History of ADHD- Primary Personal history of other mental disorder Depression, unspecified depression type documented [facility] this encounter [facility]* Diagnosis Encounter for long-term (current) use of medications- Primary Encounter for long-term (current) use of other medications ROBERT (generalized anxiety disorder) Generalized anxiety disorder [facility] Diagnosis NO SHOW- Primary documented in this encounter [facility] note* Diagnosis URI, acute- Primary Acute upper respiratory infections of unspecified site Wheezing documented in this encounter [facility] note* Diagnosis SOB (shortness of breath)- Primary Shortness of breath Pneumonia due to COVID-19 virus History of viral pneumonia Personal history of pneumonia (recurrent) History of asthma Personal history of other diseases of respiratory system Other fatigue Wheezing Nausea and vomiting, unspecified vomiting type Dyspepsia Dyspepsia and other specified disorders of function of stomach Nausea Nausea alone Chronic cough Cough documented in this encounter [facility] Discharge instructionsWTrinity [facility] Work Phone: Reason for referral (narrative)* Outpatient Procedure (Routine) - Pending Review Specialty Diagnoses / Procedures Referred By Andre krishnan [facility] To [facility] Diagnoses Encounter for long-term (current) use of medications Procedures ECG COMPLETE ECG ROUTINE ECG W/LEAST 12 LDS W/I&R Yashira Rhodes APRN.DELIVERY ROUTE DRIVER [address] [place] [address] [facility] [address] [place] [address] Referral ID Status Reason Start Date Expiration Date Visits Requested Visits Authorized [id number] Pending Review Auto-Generat ed Referral 03/23/2022 03/23/2023 1 1 [facility] for referral (narrative)* Diagnostic Procedure Only (Routine) - New Request Specialty Diagnoses / Procedures Referred By Andre krishnan Referred To Contact [facility]LECULAR [facility] FUNCTIONAL [facility]AGING Diagnoses Nausea and vomiting, unspecified vomiting type Dyspepsia Nausea Procedures NM GASTRIC EMPTYING SOLID GASTRIC EMPTYING STUDY Joey Bryant APRN.JIG BUILDER HELPER [address] [place] [address] Molecular & Functional Imaging [phone] [id number] Referral ID Status Reason Start Date Expiration Date Visits Requested Visits Authorized [id number] New Request Auto-Generat ed Referral 12/13/2023 01/11/2025 1 1 * Consult, Test, Treat (Routine) - Authorized Specialty Diagnoses / Procedures Referred By Andre t Referred To Contact Gastroenterology Diagnoses Nausea and vomiting, unspecified vomiting type Procedures CONSULT TO GASTROENTEROLOGY OFFICE/OUTPATIENT [facility] 60 MINUTES Joey Bryant APRN.JIG BUILDER HELPER [address] [place] [address] Referral ID Status Reason Start Date Expiration Date Visits Requested Visits Authorized [id number] Authorized PCP Requested Referral 12/13/2023 12/12/2024 1 1 * Consult, Test, Treat (Routine) - Authorized Specialty Diagnoses / Procedures Referred By Andre krishnan Referred To Contact Pulmonary and Critical Care Medicine Diagnoses Pneumonia due to COVID-19 virus History of viral pneumonia SOB (shortness of breath) History of asthma Procedures CONSULT TO PULM/CRITICAL CARE OFFICE/OUTPATIENT [facility] 60 MINUTES Joey Bryant APRN.JIG BUILDER HELPER [address] [place] [address] Referral ID Status Reason Start Date Expiration Date Visits Requested Visits Authorized [id number] Authorized PCP Requested Referral 12/13/2023 12/12/2024 1 1 * Outpatient Procedure (Routine) - New Request Specialty Diagnoses / Procedures Referred By Andre krishnan [facility] Diagnoses Pneumonia due to COVID-19 virus History of viral pneumonia SOB (shortness of breath) History of asthma Procedures SPIROMETRY WITH DILATOR IF OBSTRUCTED BRNCDILAT RSPSE SPMTRY PRE&POST-BRNCDILAT ADMN Joey Bryant APRN.[employer] [address] [place] [address] Respiratory Frederic [address] [place] [address] Referral ID Status Reason Start Date Expiration Date Visits Requested Visits Authorized [id number] New Request Auto-Generat ed Referral 12/13/2023 01/11/2025 1 1 [facility] Summary Purpose Family History No Family History Records FoundNo Family History Records FoundNo Family History Records FoundNo Family History Records FoundNo Family History Records Found Advance Directives No Advanced Directives Records Found Advance Directive Response Recorded Date/ Time Living Will No May 22, 2021 2:36am Power of Program Director/Traffic Director No May 22 2:36am Advance Directive Response Recorded Date/ Time Living Will No August 14, 2021 8 :56am Power of Program Director/Traffic Director No August 14, 2021 8:56am Advance Directive Response Recorded Date/ Time Living Will No September 29 2:45am Power of Program Director/Traffic Director No September 29 022 2:45am Advance Directive Response Recorded Date/ Time Living Will No January 21 022 11:46pm Power of Program Director/Traffic Director No January 21, 2022 11:46pm Advance Directive Response Recorded Date/ Time Living Will No March 26, 2 023 5:06pm Power of Program Director/Traffic Director No March 26, 2022 5:06pm Chief Complaint and Reason for Visit Chief Complaint allergic reaction, a nxiety general illness Chief Complaint general illness COUGH Chief Complaint COUGH PE DRUG SCREEN/BAT/GOODWILL DRUG SCREEN/BAT/GOODWILL fever, sob Chief Complaint fever, sob WISDOM TOOTH PAIN Chief Complaint WISDOM TOOTH PAIN GENERAL ILLNESS Health Concerns Infection Onset Date Last Indicated Resolved Time COVID-19 Rule-Out 09/27/2021 09/27/2021 09/28/2021 7:17 AM EDT Reason for Referral Specialty Diagnoses / Procedures Referred By Andre krishnan Referred To Contact Urology Diagnoses Erectile dysfunction, unspecified erectile dysfunction type Procedures CONSULT TO UROLOGY OFFICE/OUTPATIENT [facility] 60-74 MINUTES Joey Bryant APRN.CNS [address] [place] [address] Referral ID Status Reason Start Date Expiration Date Visits Requested Visits Authorized [id number] Authorized PCP Requested Referral 2 01/26/2023 1 1 Additional Source Comments (unrecognized sect ion and content) No Status Records FoundNo Status Records FoundNo Status Records FoundNo Status Records FoundNo Status Records Found INFORMATION SOURCE (unrecogn ized section and content) DATE CREATED AUTHOR 07/31/2017 [facility] DATE CREATED AUTHOR AUTHOR'S ORGANIZ ATION 11/07/2020 [facility] DATE CREATED AUTHOR AUTHOR'S ORGANIZ ATION 11/13/2020 [facility] DATE CREATED AUTHOR AUTHOR'S ORGANIZ ATION 12/14/2023 [facility] DATE CREATED AUTHOR AUTHOR'S ORGANIZ ATION 04/06/2024 [facility] Goals (unrecognized section and content) Goals may be documented in a n alternate sectionGoals may be documented in an alternate sectionGoals may be documented in an alternate sectionGoals may be documented in an alternate sectionGoals may be documented in an alternate section Source Comments (unrecognize d section and content) In the event this informatio n is protected by the Federal Confidentiality of Alcohol and Drug Abuse Patient Records regulations: The Federal rules restrict any use of the information to criminally investigate or prosecute any alcohol or drug abuse patient.[facility] the event this information is protected by the Federal Confidentiality of Alcohol and Drug Abuse Patient Records regulations: The Federal rules restrict any use of the information to criminally investigate or prosecute any alcohol or drug abuse patient.[facility] the event this information is protected by the Federal Confidentiality of Alcohol and Drug Abuse Patient Records regulations: The Federal rules restrict any use of the information to criminally investigate or prosecute any alcohol or drug abuse patient.[facility] the event this information is protected by the Federal Confidentiality of Alcohol and Drug Abuse Patient Records regulations: The Federal rules restrict any use of the information to criminally investigate or prosecute any alcohol or drug abuse patient.[facility] the event this information is protected by the Federal Confidentiality of Alcohol and Drug Abuse Patient Records regulations: The Federal rules restrict any use of the information to criminally investigate or prosecute any alcohol or drug abuse patient.[facility] the event this information is protected by the Federal Confidentiality of Alcohol and Drug Abuse Patient Records regulations: The Federal rules restrict any use of the information to criminally investigate or prosecute any alcohol or drug abuse patient.[facility] the event this information is protected by the Federal Confidentiality of Alcohol and Drug Abuse Patient Records regulations: The Federal rules restrict any use of the information to criminally investigate or prosecute any alcohol or drug abuse patient.[facility] Hospital[facility] the event this information is protected by the Federal Confidentiality of Alcohol and Drug Abuse Patient Records regulations: The Federal rules restrict any use of the information to criminally investigate or prosecute any alcohol or drug abuse patient.[facility] Hospital[facility] the event this information is protected by the Federal Confidentiality of Alcohol and Drug Abuse Patient Records regulations: The Federal rules restrict any use of the information to criminally investigate or prosecute any alcohol or drug abuse patient.[facility] Hospital[facility] the event this information is protected by the Federal Confidentiality of Alcohol and Drug Abuse Patient Records regulations: The Federal rules restrict any use of the information to criminally investigate or prosecute any alcohol or drug abuse patient.[facility] Hospital[facility] the event this information is protected by the Federal Confidentiality of Alcohol and Drug Abuse Patient Records regulations: The Federal rules restrict any use of the information to criminally investigate or prosecute any alcohol or drug abuse patient.[facility] Hospital[facility] the event this information is protected by the Federal Confidentiality of Alcohol and Drug Abuse Patient Records regulations: The Federal rules restrict any use of the information to criminally investigate or prosecute any alcohol or drug abuse patient.[facility] Reason for Visit (unrecogniz ed section and content) Reason Comments Patient Question Reason Comments Behavioral Health Social Work Reason Comments Establish Care Reason Comments Follow Up Reason Comments Appointment Reason Comments New Patient Evaluation Reason Comments No Show Reason Comments Cough Chest congestion, he adache, body aches, SOB, chest tightness x 1 day Reason Comments Results Reason Comments Future Appointment Reason Comments Fatigue SOB constant, dull p ain (rib/ab) sharp breathing in, cough - dark Care Teams (unrecognized sec tion and content) [employer] Relationship Specialty Start Date End Date Cholo Cheng MD [address] [place] [address] PCP - General Family Practice 11/06/20 [employer] Relationship Specialty Start Date End Date Evonne Washington MD [address] [place], [place] [id number] PCP - General Internal Medicine 01/26/22 [employer] Relationship Specialty Start Date End Date Eovnne Washington MD [address] [place], [place] [id number] PCP - General Internal Medicine 01/26/22 [employer] Relationship Specialty Start Date End Date Evonne Washington MD [address] [place] [address] PCP - General Internal Medicine 01/26/22 [employer] Relationship Specialty Start Date End Date Evonne Washington MD [address] [place] [address] PCP - General Internal Medicine 01/26/22 [employer] Relationship Specialty Start Date End Date Evonne Washington MD [address] [place] [address] PCP - General Internal Medicine 01/26/22 Team Status: Active Member Role Status Dates Dr. Domo Cheng MD Family Provider Active Joey Bryant TIPPLE BOSS, TIPPLE BOSS-C Primary Care Provider Active Team Status: Inactive Member Role Status Dates No Primary Care Physician Primary Care Provider Active Dr. Tao Montenegro MD Attending Provider, Emergency Provider Active Team Status: Inactive Member Role Status Dates Joey Bryant TIPPLE BOSS, TIPPLE BOSS-C Primary Care Provider Active Dr. Toney Johnson MD Emergency Provider Active [employer] Relationship Specialty Start Date End Date Evonne Washington MD [address] [place] [address] PCP - General Internal Medicine 01/26/22 [employer]p Relationship Specialty Start Date End Date Evonne Washington MD [address] [place] [address] PCP - General Internal Medicine 01/26/22 [employer] Relationship Specialty Start Date End Date Evonne Washington MD [address] [place] [address] PCP - General Internal Medicine 01/26/22 [employer] Relationship Specialty Start Date End Date Evonne Washington MD [address] [place] [address] PCP - General Internal Medicine 01/26/22 FOR RECORDS PERTAINING TO PATIENTS WHO ARE OR HAVE BEEN ENROLLED IN A CHEMICAL DEPENDENCY/SUBSTANCEABUSE PROGRAM, SOME INFORMATION MAY BE OMITTED. This clinical summary was aggregated from multiple sources. Caution should be exercised in using it in the provision of clinical care. This summary normalizes information from multiple sources, and as a consequence, information in this document may materially change the coding, format and clinical context of patient data. In addition, data may be omitted in some cases. CLINICAL DECISIONS SHOULD BE BASED ON THE PRIMARY CLINICAL RECORDS. [facility]. provides no warranty or guarantee of the accuracy or completeness of information in this document.
--- NOTE | 2024-12-02 23:15 | EX.ED.DYSGE1 ---
HPI History of Present Illness Chief Complaint: General Illness Informant: patient Narrative Narrative: Patient states that over the past 3 days he has felt very poorly having headaches sore throat myalgias and now rash on hands and feet. He denies any significant cough. No definitive fevers at home but has felt chilled and warm at times. No diarrhea or vomiting. [facility] Medical History Costochondritis Opiate addiction Asthma Home Medications ?Medication ?Instructions ?Recorded ?Last Taken ?Type NK 03/22/24 Unknown History Allergy/AdvReac Type Severity Reaction Status Date / Time ondansetron (From Zofran) AdvReac Other Verified 12/02/24 16:38 Surgical History History of tonsillectomy Social History Smoking Status: Current every day smoker tobacco type: cigarettes ROS ROS ED Constitutional Constitutional ED: Reports chills, subjective and sweats; Denies weight loss Eyes Eyes: Denies change in vision or diplopia ENT ENT ED: Reports sore throat; Denies ear pain or rhinorrhea Cardiovascular Cardiovascular: Denies chest pain, orthopnea, palpitations or racing heartbeat Respiratory/Chest Respiratory/Chest: Denies cough, dyspnea or orthopnea Gastrointestinal Gastrointestinal: Denies abdominal pain, diarrhea, nausea or vomiting Genitourinary Genitourinary ED: Denies dysuria, hematuria or urinary frequency Musculoskeletal Musculoskeletal: Reports myalgias; Denies arthralgias or back pain Integumentary Reports rash; Denies abscess Neurologic Neurologic: Denies headache(s) or weakness Psychiatric Psychiatric: Denies anxiety, depression, suicidal ideation or suicidal thoughts Endocrine Endocrinology: Denies polydipsia, polyphagia or polyuria Allergic/Immunologic Allergic/Immunologic ED: Denies mouth swelling, tongue swelling or urticaria EXAM Physical Exam Const Vital Signs: 12/02/24 16:35 12/02/24 18:39 Temperature 98.9 F 98.6 F Temperature Source Oral Pulse Rate 80 89 Respiratory Rate 16 17 Blood Pressure 144/83 H 114/60 Blood Pressure Mean 103 78 Pulse Ox 99 97 Oxygen Delivery Method Room Air Positive well nourished and well developed General Appearance ED: well developed HEENT Reports normocephalic, head/scalp atraumatic and moist mucous membranes HEENT Narrative: There are numerous whitish circular lesions on the posterior oropharyngeal area. There is no tonsillar exudate or swelling. No obvious peritonsillar or retropharyngeal abscess is noted. No significant lymphadenopathy is noted on neck exam. Eyes PERRL and EOMs intact bilaterally Neck no lymphadenopathy, supple and no JVD Resp normal respiratory effort and clear to auscultation bilaterally Cardio regular rate, regular rhythm and no murmurs GI normal to inspection, nondistended, normoactive bowel sounds and non-tender Palpation: soft Back/Spine no CVA tenderness and normal ROM Extremity normal to inspection General Extremety ED: Negative for edema General Extremity: Negative for edema Neuro oriented x3 and CN's II-XII intact bilaterally Sensorium / Orientation: alert Motor Exam: strength 5/5 throughout Psych mental status grossly normal Mood & Affect: Negative for depressed or tearful Skin no rashes or lesions noted and no wounds Skin Narrative: Located on the soles and the palms of the hands and feet are numerous round macular and papular lesions consistent with qxnn-evjs-ofd-mouth. MDM MDM MDM Narrative Medical decision making narrative: Differential diagnosis includes but not limited to streptococcal pharyngitis scarlet fever ywcj-tkvj-uby-mouth disease viral syndrome abscess myocarditis pericarditis endocarditis Based on the physical exam and his history I think this is most likely kigb-vtyo-ueb-mouth disease. Supportive care is indicated. Patient understands this plan is comfortable with that oral hydration stressed. History & Record Review Discussion w/independent historian: Patient and Family Discharge Plan Triage Chief Complaint: General Illness ED Provider: Danny Medina Dx/Rx/DC Orders Clinical Impression: Hand, foot and mouth disease (HFMD) Instructions: Hand Foot Mouth Disease Prescriptions: No Action NK Primary Care Provider: Care Physician,No Primary Referrals: Care Physician,No Primary [Primary Care Provider, Medical] Print Language: Austrian Disposition Disposition: Home, Self Care Discharge Date/Time: 12/02/24 18:45
== END 2024-12-02 18:45 | disposition home or self-care (01) ==
LOC: ED 18:44
PROVIDERS: Emergency Provider Emergency Medicine; Visit Provider Emergency Medicine
DX: B08.4 Enteroviral vesicular stomatitis with exanthem (principal); J45.909 Unspecified asthma, uncomplicated; F17.210 Nicotine dependence, cigarettes, uncomplicated
CPT/HCPCS: 99282